=== PATIENT | male | born 1985 | race Caucasian/White ===

== ENCOUNTER 2024-12-16 20:36 | Emergency (ER) | payer MEDICAID, SELFPAY ==
--- OUTSIDE RECORDS SUMMARY | 2024-10-17 07:30 | XMS_ITS ---
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 Name Role Phone Jones LYLYAndrés Unavailable Elissa Parrish Unavailable Unavaila Carlos Toussaint Unavailable [phone] Allergies Allergen (clinical drug ingredient) Drug/Non Drug Allergy documented on EMR Reaction Allergy Type Onset Date Status Flexeril hives Drug Allergy Active Results Component Value Reference Range Notes Urine Test ANALYZER Reviewed date:10/17/2024 12:54:54 PM Interpretation:+OPI +OXY +HYD Performing Lab: Notes/Report: +OPI +OXY +HYD Heroin Metabolite (6AM) NEG Amphetamine (AMP) NEG Benzodiazepine (BERNIE) NEG Buprenorphine NEG Cocaine (RAJ) NEG Hydrocodone (HYD) POS Methadone (MTD) NEG Opiate (OPI) POS Oxycodone (OXY) POS REASON FOR VISIT Low back pain Medications Medication SIG (Take, Route, Frequency, Duration) Notes Start Date End Date Status Acetaminophen-Hydrocodo ne Bitartrate 325 mg-10 mg 1 tab(s) orally 4 times a day; Duration: 28 days 08/20/2024 Active gabapentin 400 mg 1 tab(s) orally at bedtime; Duration: 30 day(s) 07/30/2024 Active loratadine 10 mg 1 tab(s) orally once a day 09/11/2022 Active Metoprolol Tartrate 25 mg ; Duration: 90 Active atorvastatin 40 mg 1 tab(s) orally once a day; Duration: 30 day(s) 06/06/2022 Active Eliquis 5 mg as directed orally 2 times a day; Duration: 30 day(s) Active pregabalin 100 mg 1 cap(s) orally 3 times a day; Duration: 28 days DO NOT FILL SOONER THAN 28 DAYS, (OK TO FILL EARLY, ONLY IF CLOSED) 10/17/2024 Active OxyCODONE Hydrochloride 10 mg 1 tab(s) orally every 6 hours; Duration: 28 days SEPTEMBER 2024 RX DO NOT FILL SOONER THAN 28 DAYS, (OK TO FILL EARLY, ONLY IF CLOSED) 10/17/2024 Active fenofibrate 145 mg TAKE 1 TABLET BY MOUTH EVERY DAY; Duration: 90 Active verapamil 120 mg/24 hours 1 cap(s) orally once a day; Duration: 30 day(s) 06/06/2022 Active baclofen 10 mg 1 tab(s) orally 3 times a day; Duration: 30 day(s) Active OxyCODONE Hydrochloride 5 mg 1 tab(s) orally every 6 hours; Duration: 28 days October 2024 RX DO NOT FILL SOONER THAN 28 DAYS, (OK TO FILL EARLY, ONLY IF CLOSED) 10/17/2024 Active Encounters Encounter Location Date Provider Diagnosis [facility] [address] [place] [address] 10/17/2024 Carlos Ogden Other snf (current) drug therapy Z79.899 ; Other spondylosis, lumbar region M47.896 ; Radiculopathy, lumbar region M54.16 and Cervicalgia M54.2 Assessments Encounter Date Diagnosis (ICD Code) Assessment Notes Treatment Notes Treatment Clinical Notes Section Notes 10/17/2024 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 Refill Baclofen 10mg TID prn 2. Refill Oxycodone 10mg QID 3. Refill Lyrica 100mg TID October 17, 2024: The patient presents to the [facility] office in [facility] for an audiovisual-telem edicine visit. The patient was evaluated by the general medical practitioner and a urine drug screen was obtained as well as vital signs. Portions of the physical examination were assisted by the general medical practitioner during the audiovisual-telem edicine visit Review of history and previous note: Benigno presents today for follow up and medication refil. Reports shooting pain that starts from the right lower back that radiates to the left lower back and down to mid-buttocks area. Patient describes sciatica type pain for the last three weeks. Patient unable to stand for long periods of time without provoking pain. Patient reports for relief he would lay on the opposite side to relieve pressure. Patient had lumbar MRI done. 11/07/2023 - Central L5-S1 disc herniation indenting the anterior thecal sac. Left paracentral L3-4 disc herniation indenting the anterior thecal sac. Left-sided T11-12 disc herniation indenting the anterior thecal sac. Degenerative disc disease involving the lumbar spine with no other sites of lumbar disc herniation or conus or cauda equina compression. Mild bilateral L4-5 foraminal stenosis. Patient diagnosed with cancer. He reports still undergoing multiple scans of his neck and collar bone. He reports that his pain has been somewhat out of control the last couple of months. He reports having difficulty sleeping at night secondary to the shoulder and neck pain. He reports his pain level a 7. Patient does have a gastrostomy tube secondary to dysphagia. . He was previously prescribed Oxycodone during admission. Right side of patient neck is enlarged and red. He reports the gabapentin increase has helping the burning sensations in his neck. He has completed chemo treatment and has 6 more radiation treatments. October 17, 2024: Mr. Keita is a 39-year-old gentleman with a previous diagnosis of head and neck cancer. He also complains of neck and lower back pain. His pain is much better today. He says it is 5/10. He has received chemotherapy and radiation therapy but no surgery. The last adjunct of therapy was around July 2024. He is still followed by oncology. He has no radiating pain in the arms or legs. The pregabalin works better than the gabapentin with less drowsiness. I reviewed the Bart and the urine drug screen. The patient is now only getting the oxycodone 10 mg 4 times a day. I advised the patient not to receive any opioid therapy from the oncologist unless we are aware. He has received significant opioid therapy during his treatment. For his cancer during the month of July. No new changes otherwise. Because of his diagnosis of cancer we will hold off on interventional therapy for now. Will refill his medications and see him back in 2 months. 10/17/2024 Other spondylosis, lumbar region (ICD-10 - M47.896) October 17, 2024: The patient presents to the [facility] office in [facility] for an audiovisual-telem edicine visit. The patient was evaluated by the general medical practitioner and a urine drug screen was obtained as well as vital signs. Portions of the physical examination were assisted by the general medical practitioner during the audiovisual-telem edicine visit Review of history and previous note: Benigno presents today for follow up and medication refil. Reports shooting pain that starts from the right lower back that radiates to the left lower back and down to mid-buttocks area. Patient describes sciatica type pain for the last three weeks. Patient unable to stand for long periods of time without provoking pain. Patient reports for relief he would lay on the opposite side to relieve pressure. Patient had lumbar MRI done. 11/07/2023 - Central L5-S1 disc herniation indenting the anterior thecal sac. Left paracentral L3-4 disc herniation indenting the anterior thecal sac. Left-sided T11-12 disc herniation indenting the anterior thecal sac. Degenerative disc disease involving the lumbar spine with no other sites of lumbar disc herniation or conus or cauda equina compression. Mild bilateral L4-5 foraminal stenosis. Patient diagnosed with cancer. He reports still undergoing multiple scans of his neck and collar bone. He reports that his pain has been somewhat out of control the last couple of months. He reports having difficulty sleeping at night secondary to the shoulder and neck pain. He reports his pain level a 7. Patient does have a gastrostomy tube secondary to dysphagia. . He was previously prescribed Oxycodone during admission. Right side of patient neck is enlarged and red. He reports the gabapentin increase has helping the burning sensations in his neck. He has completed chemo treatment and has 6 more radiation treatments. October 17, 2024: Mr. Keita is a 39-year-old gentleman with a previous diagnosis of head and neck cancer. He also complains of neck and lower back pain. His pain is much better today. He says it is 5/10. He has received chemotherapy and radiation therapy but no surgery. The last adjunct of therapy was around July 2024. He is still followed by oncology. He has no radiating pain in the arms or legs. The pregabalin works better than the gabapentin with less drowsiness. I reviewed the Bart and the urine drug screen. The patient is now only getting the oxycodone 10 mg 4 times a day. I advised the patient not to receive any opioid therapy from the oncologist unless we are aware. He has received significant opioid therapy during his treatment. For his cancer during the month of July. No new changes otherwise. Because of his diagnosis of cancer we will hold off on interventional therapy for now. Will refill his medications and see him back in 2 months. 10/17/2024 Radiculopathy, lumbar region (ICD-10 - M54.16) October 17, 2024: The patient presents to the [facility] office in [facility] for an audiovisual-telem edicine visit. The patient was evaluated by the general medical practitioner and a urine drug screen was obtained as well as vital signs. Portions of the physical examination were assisted by the general medical practitioner during the audiovisual-telem edicine visit Review of history and previous note: Benigno presents today for follow up and medication refil. Reports shooting pain that starts from the right lower back that radiates to the left lower back and down to mid-buttocks area. Patient describes sciatica type pain for the last three weeks. Patient unable to stand for long periods of time without provoking pain. Patient reports for relief he would lay on the opposite side to relieve pressure. Patient had lumbar MRI done. 11/07/2023 - Central L5-S1 disc herniation indenting the anterior thecal sac. Left paracentral L3-4 disc herniation indenting the anterior thecal sac. Left-sided T11-12 disc herniation indenting the anterior thecal sac. Degenerative disc disease involving the lumbar spine with no other sites of lumbar disc herniation or conus or cauda equina compression. Mild bilateral L4-5 foraminal stenosis. Patient diagnosed with cancer. He reports still undergoing multiple scans of his neck and collar bone. He reports that his pain has been somewhat out of control the last couple of months. He reports having difficulty sleeping at night secondary to the shoulder and neck pain. He reports his pain level a 7. Patient does have a gastrostomy tube secondary to dysphagia. . He was previously prescribed Oxycodone during admission. Right side of patient neck is enlarged and red. He reports the gabapentin increase has helping the burning sensations in his neck. He has completed chemo treatment and has 6 more radiation treatments. October 17, 2024: Mr. Keita is a 39-year-old gentleman with a previous diagnosis of head and neck cancer. He also complains of neck and lower back pain. His pain is much better today. He says it is 5/10. He has received chemotherapy and radiation therapy but no surgery. The last adjunct of therapy was around July 2024. He is still followed by oncology. He has no radiating pain in the arms or legs. The pregabalin works better than the gabapentin with less drowsiness. I reviewed the Bart and the urine drug screen. The patient is now only getting the oxycodone 10 mg 4 times a day. I advised the patient not to receive any opioid therapy from the oncologist unless we are aware. He has received significant opioid therapy during his treatment. For his cancer during the month of July. No new changes otherwise. Because of his diagnosis of cancer we will hold off on interventional therapy for now. Will refill his medications and see him back in 2 months. 10/17/2024 Cervicalgia (ICD-10 - M54.2) October 17, 2024: The patient presents to the [facility] in [facility] for an audiovisual-telem edicine visit. The patient was evaluated by the general medical practitioner and a urine drug screen was obtained as well as vital signs. Portions of the physical examination were assisted by the general medical practitioner during the audiovisual-telem edicine visit Review of history and previous note: Benigno presents today for follow up and medication refil. Reports shooting pain that starts from the right lower back that radiates to the left lower back and down to mid-buttocks area. Patient describes sciatica type pain for the last three weeks. Patient unable to stand for long periods of time without provoking pain. Patient reports for relief he would lay on the opposite side to relieve pressure. Patient had lumbar MRI done. 11/07/2023 - Central L5-S1 disc herniation indenting the anterior thecal sac. Left paracentral L3-4 disc herniation indenting the anterior thecal sac. Left-sided T11-12 disc herniation indenting the anterior thecal sac. Degenerative disc disease involving the lumbar spine with no other sites of lumbar disc herniation or conus or cauda equina compression. Mild bilateral L4-5 foraminal stenosis. Patient diagnosed with cancer. He reports still undergoing multiple scans of his neck and collar bone. He reports that his pain has been somewhat out of control the last couple of months. He reports having difficulty sleeping at night secondary to the shoulder and neck pain. He reports his pain level a 7. Patient does have a gastrostomy tube secondary to dysphagia. . He was previously prescribed Oxycodone during admission. Right side of patient neck is enlarged and red. He reports the gabapentin increase has helping the burning sensations in his neck. He has completed chemo treatment and has 6 more radiation treatments. October 17, 2024: Mr. Keita is a 39-year-old gentleman with a previous diagnosis of head and neck cancer. He also complains of neck and lower back pain. His pain is much better today. He says it is 5/10. He has received chemotherapy and radiation therapy but no surgery. The last adjunct of therapy was around July 2024. He is still followed by oncology. He has no radiating pain in the arms or legs. The pregabalin works better than the gabapentin with less drowsiness. I reviewed the Bart and the urine drug screen. The patient is now only getting the oxycodone 10 mg 4 times a day. I advised the patient not to receive any opioid therapy from the oncologist unless we are aware. He has received significant opioid therapy during his treatment. For his cancer during the month of July. No new changes otherwise. Because of his diagnosis of cancer we will hold off on interventional therapy for now. Will refill his medications and see him back in 2 months. Plan Of Treatment Medication Medication Name Sig Start Date Stop Date Notes pregabalin 100 mg 1 cap(s) orally 3 times a day; Duration: 28 days 10/17/2024 DO NOT FILL SOONER THAN 28 DAYS, (OK TO FILL EARLY, ONLY IF CLOSED) OxyCODONE Hydrochloride 10 mg 1 tab(s) orally every 6 hours; Duration: 28 days 10/17/2024 RX DO NOT FILL SOONER THAN 28 DAYS, (OK TO FILL EARLY, ONLY IF CLOSED) baclofen 10 mg 1 tab(s) orally 3 times a day; Duration: 30 day(s) OxyCODONE Hydrochloride 5 mg 1 tab(s) orally every 6 hours; Duration: 28 days 10/17/2024 RX DO NOT FILL SOONER THAN 28 DAYS, (OK TO FILL EARLY, ONLY IF CLOSED) Treatment Notes Assessment Notes Other snf (current) drug therapy October 17, 2024 1. Refill Baclofen 10mg TID prn 2. Refill Oxycodone 10mg QID 3. Refill Lyrica 100mg TID Next Appt Details Follow Up: 2 Months, Reason: Provider Name:Andrés Cuellar farooq, 02/06/2025 01:15:00 PM, [address], [address], [place], [address], Progress Notes * Benigno KEITADOB:[birth year] (39 yo M)Acc No.[id number]:10/17/2024 Patient: Benigno ROTHMAN Provider: Natali Ogden MD :1985 A ge:39 Y S ex:Male Date:10/17/2024 Address:[address] [place], [place] [id number] Subjective: * Chief Complaints: * L ow back pain * HPI: T ODAYS PAIN EVALUATION: MEDICATION FOLLOW UP: T he patient is currently prescribed [place] 10/325 QID, which provides 75% relief of pain symptoms for 6 hours. The last dose was taken 10/17/2024 Denies side effects. C URRENT PAIN SYMPTOMS: L ocation of Worst Pain: L ow Back, P ain Frequency: c onstant, always, P ain Description: a johnnie, burning, cramping, sharp, stabbing, A verage Pain Score VAS: 7 , P ain Exacerbation: bending, lifting, stooping, P ain Alleviation: Laying in specific positions, A DL/Quality of Life Interference: Everyday Life. P AIN MANAGEMENT TREATMENT HISTORY: IMAGING HISTORY: 06/27/2022 EMG BLE-This is a borderline normal electrodiagnostic evaluation. The absence of the superficial peroneal sensory studies were thought to be technically difficult and may not represent pathology. The absence of the H reflex appears to be uncertain in terms of significance but may represent S1 pathology. EMG showed no evidence of S1 radiculopathy however. I would recommend lumbosacral imaging with MRI scan without contrast if possible. This will further delineate any possible lumbosacral pathology. Otherwise I will recommend clinical correlation 08/04/2022 MRI Lumbar- Degenerative disc disease as above 01/30/2023 XR Cervical-No acute process 11/07/2023 - Central L5-S1disc herniation indenting the anterior thecal sac. Left paracentral L3-4 disc herniation indenting the anterior thecal sac. Left-sided T11-12 disc herination indenting the anterior thecal sac. Degenerative disc disease involving the lumbar spine with no other sites of lumbar disc herniation or conus or cauda equina compression. Mild bilateral L4-5 foraminal stenosis . P REVIOUS INJECTION\PROCEDURE HISTORY: 10/30/2022 #1 LMBB AZUL L3,L4,L5 with 80 % for 1 day 11/13/2022 #2 LMBB AZUL L3,L4,L5 with 80 % for 1 day 12/25/2022 RFA AZUL L3, L4, L5 40-50% relief for 2 weeks . P HYSICAL/AQUA THERAPY/DME/OTHER HISTORY: Patient has an inversion table. 2022 - 04/09/2024 Patient continues a prescribed home exercise program 3-5 times per week, (sits ups, push ups, litfs low weight weights) as of 09/22/2024 . P ERTINENT SURGICAL EVALUATIONS/SPECIALIST CONSULTS No prior surgical consult . P REVIOUS PAIN CLINIC CARE: Former patient of Alok Sims . Ac TRUONG OF INITIAL EVALUATION: 06/06/2022 New patient consult referred by Dr Carter for chronic lower back pain onset about 21 years ago without incident . The patient says that he has a history of cardiac disease and suffered an MN last year. The patient is status post a cardiac stent as well as anxiety and depression by history. He has no history of previous back surgery and no history of diabetes mellitus or peripheral polyneuropathy. He has no history of back injury previously or recently. He says that the pain started gradually. The pain is mostly in the lower back and radiates up towards the middle back. Patient says that his pain level today is 7/10 and he rates it as moderate. The pain is worse with bending and increased activity and repetitive motions of his back. He says the lower back pain extends into the left lower extremity mostly down to the left knee. The right lower extremity is unremarkable. He denies weakness in the lower extremities and has no bowel or bladder incontinence. He has no history of foot drop or distal lower extremity weakness. The patient does say that he underwent epidural injections previously that helped to some degree and the last one was several years ago. He underwent RFA in the lower back about 5 years ago with some degree of improvement. He has been doing a home exercise program including an inversion table. There are no copies of the imaging studies available for review.. C OMPLIANCE: RISK ASSESSMENT AND STRATIFICATION: RISK GROUP: . U RINE DRUG TESTIN08/20/2023 Screen Expected 10/15/2023 Screen Expected 12/10/2023 Screen Expected Definitive Expected 02/08/2024 Screen Expected 04/09/2024 Screen Expected 06/02/2024 Screen Expected Definitive Expected 07/30/2024 Screen Unexpected (oxy) ; Definitive Unexpected(+fent) 10/16/2024, . M ONITORING: M orphine Equivalent (MME): 0 BART reviewed today and appropriate . T ESTING/RISK ASSESSMENTS ORT Score/Result: 0. * ROS: G ENERAL: Fever D enies. H EENT: Sore throat D enies. C ARDIOVASCULAR: Positive for d enies cardiovascular symptoms. ? R ESPIRATORY: Positive for d enies respiratory issues. G ASTROINTESTINAL: Positive for d enies abdominal issues. G ENITOURINARY: Positive for d enies genitourinary issues. M USCULOSKELETAL: Positive for l ow back pain. N EUROLOGICAL: Positive for n umbness tingling. P SYCHIATRIC: Positive for a nxiety depression. E NDOCRINE: Positive for d enies endocrine issues. * Medical History: * Surgical History: c holecystetomy pt denies 2003hernia repair [facility] ([facility]) 11/20/2019cardiac stent [facility] (OP) ppendectomy (unknown) 2002[employer]/[place]/ UNKNOWN/ 1 night stay 2024 * Hospitalization/Major Diagno stic Procedure: D enies Past Hospitalization * Family History: N on-Contributory. Denies family hx of substance abuse. * Social History: S moking: Yes P PD: , age started smoking: ,determination:. P ersonal History Drug Use: No. Alcohol: No. 6. * Medications: T akingEliquis 5 mg tablet as directed orally 2 times a day verapamil 120 mg/24 hours capsule, extended release 1 cap(s) orally once a day fenofibrate 145 mg tablet TAKE 1 TABLET BY MOUTH EVERY DAY atorvastatin 40 mg tablet 1 tab(s) orally once a day Metoprolol Tartrate 25 mg tablet loratadine 10 mg tablet 1 tab(s) orally once a day gabapentin 400 mg capsule 1 tab(s) orally at bedtime Acetaminophen-Hydrocodone Bitartrate 325 mg-10 mg tablet 1 tab(s) orally 4 times a day baclofen 10 mg tablet 1 tab(s) orally 3 times a day OxyCODONE Hydrochloride 10 mg tablet 1 tab(s) orally every 6 hours , Notes to Pharmacist: DO NOT FILL SOONER THAN 28 DAYS, (OK TO FILL EARLY, ONLY IF CLOSED)pregabalin 100 mg capsule 1 cap(s) orally 3 times a day , Notes to Pharmacist: DO NOT FILL SOONER THAN 28 DAYS, (OK TO FILL EARLY, ONLY IF CLOSED)Medication List reviewed and reconciled with the patientTaking Eliquis 5 mg tablet as directed orally 2 times a day Taking verapamil 120 mg/24 hours capsule, extended release 1 cap(s) orally once a day Taking fenofibrate 145 mg tablet TAKE 1 TABLET BY MOUTH EVERY DAY Taking atorvastatin 40 mg tablet 1 tab(s) orally once a day Taking Metoprolol Tartrate 25 mg tablet Taking loratadine 10 mg tablet 1 tab(s) orally once a day Taking gabapentin 400 mg capsule 1 tab(s) orally at bedtime Taking Acetaminophen-Hydrocodone Bitartrate 325 mg-10 mg tablet 1 tab(s) orally 4 times a day Taking baclofen 10 mg tablet 1 tab(s) orally 3 times a day Taking OxyCODONE Hydrochloride 10 mg tablet 1 tab(s) orally every 6 hours , Notes to Pharmacist: DO NOT FILL SOONER THAN 28 DAYS, (OK TO FILL EARLY, ONLY IF CLOSED)Taking pregabalin 100 mg capsule 1 cap(s) orally 3 times a day , Notes to Pharmacist: DO NOT FILL SOONER THAN 28 DAYS, (OK TO FILL EARLY, ONLY IF CLOSED)Medication List reviewed and reconciled with the patient * Allergies: F lexeril: hives - Side Effectsno[Allergies Verified] Objective: * Vitals: * Examination: G eneral Examination: Nurse/Bottom Presser: Liz cheng (SHARAD-Valeria Barrett 09/22/2024 11:05:02 AM > . General Appearance: w ell-nourished individual in no acute distress. The patient is alert and oriented and cooperative for evaluation. HEENT: unremarkable. Neck, Thyroid : supple. Heart: regular rate. Neurologic Exam: P atient ambulates with an antalgic gait, pitched forward. Skin normal, no rash. Extremities: no clubbing, no edema. ? L umbar Spine/Lower Back: Palpation: T enderness to lower lumbar Paraspinal .? Inspection: Spinal alignment no abnormal curvature noted.? Straight leg raising test: negative bilaterally. Sensory exam: s ensation intact to light touch throughout bilateral lower extremities, no edema or discoloration noted. Motor system: m otor strength 5/5 in all muscle groups bilaterally. Range of motion: p ain with extention pain with all pains of motion . Assessment: * Assessment: 1. 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 O ther spondylosis, lumbar region - M47.896 3 . R adiculopathy, lumbar region - M54.16? 4. C ervicalgia - M54.2 October 17, 2024: The patient presents to the [facility] office in [facility] for an audiovisual-telemedicine visit. The patient was evaluated by the general medical practitioner and a urine drug screen was obtained as well as vital signs. Portions of the physical examination were assisted by the general medical practitioner during the audiovisual-telemedicine visit Review of history and previous note: Benigno presents today for follow up and medication refil. Reports shooting pain that starts from the right lower back that radiates to the left lower back and down to mid-buttocks area. Patient describes sciatica type pain for the last three weeks. Patient unable to stand for long periods of time without provoking pain. Patient reports for relief he would lay on the opposite side to relieve pressure. Patient had lumbar MRI done. 11/07/2023 - Central L5-S1 disc herniation indenting the anterior thecal sac. Left paracentral L3-4 disc herniation indenting the anterior thecal sac. Left-sided T11-12 disc herniation indenting the anterior thecal sac. Degenerative disc disease involving the lumbar spine with no other sites of lumbar disc herniation or conus or cauda equina compression. Mild bilateral L4-5 foraminal stenosis. Patient diagnosed with cancer. He reports still undergoing multiple scans of his neck and collar bone. He reports that his pain has been somewhat out of control the last couple of months. He reports having difficulty sleeping at night secondary to the shoulder and neck pain. He reports his pain level a 7. Patient does have a gastrostomy tube secondary to dysphagia. . He was previously prescribed Oxycodone during admission. Right side of patient neck is enlarged and red. He reports the gabapentin increase has helping the burning sensations in his neck. He has completed chemo treatment and has 6 more radiation treatments. October 17, 2024: Mr. Keita is a 39-year-old gentleman with a previous diagnosis of head and neck cancer. He also complains of neck and lower back pain. His pain is much better today. He says it is 5/10. He has received chemotherapy and radiation therapy but no surgery. The last adjunct of therapy was around July 2024. He is still followed by oncology. He has no radiating pain in the arms or legs. The pregabalin works better than the gabapentin with less drowsiness. I reviewed the Bart and the urine drug screen. The patient is now only getting the oxycodone 10 mg 4 times a day. I advised the patient not to receive any opioid therapy from the oncologist unless we are aware. He has received significant opioid therapy during his treatment. For his cancer during the month of July. No new changes otherwise. Because of his diagnosis of cancer we will hold off on interventional therapy for now. Will refill his medications and see him back in 2 months. Plan: * Treatment: Value Reference Range H eroin Metabolite (6AM) NEG * A mphetamine (AMP) NEG * B enzodiazepine (BERNIE) NEG * B uprenorphine NEG * C ocaine (RAJ) NEG * H ydrocodone (HYD) POS POS * M ethadone (MTD) NEG * O piate (OPI) POS POS * O xycodone (OXY) POS POS * Arelis Rogel 10/17/2024 12:09: 20 PM EDT >Carlos Ogden 10/17/2024 12:30:13 PM EDT > (Confirm All) Send specimen for definitive testing on Amphetamines, Anticonvulsants, Antitussive, Barbiturates,Bath Salts, Benzodiazepines, Buprenorphine, Fentanyl,RAO Analogue, Heroin, Illicits, Methadone, Methylphenidate, Muscle Relaxants, Nicotine, Opiates, Opioid Antagonist, Other Anxiolytic,Recreational Compounds, Sleep Aids, SSRI/SNRI,Synthetic Cannabinoids,Tricyclics drug classes Notes: October 17, 2024 1. Refill Baclofen 10mg TID prn 2. Refill Oxycodone 10mg QID 3. Refill Lyrica 100mg TID ?? * Procedure Codes: * Follow Up: 2 Months * * Sign off status: Completed true * Provider: Natali Ogden MD Date: 10/17/2024 Generated for Shanel grayson/Finn/Eliseo on: 12/16/2024 08:45 PM CDT History and Physical Notes * HPI (History of Present Illness) Category Sub-Category Detail Notes Category Not es PAIN MANAGEMENT TREATMENT HISTORY SUMMARY OF INITIAL EVALUATION: 06/06/2022 New patient consult referred by Dr Carter for chronic lower back pain onset about 21 years ago without incident . The patient says that he has a history of cardiac disease and suffered an MN last year. The patient is status post a cardiac stent as well as anxiety and depression by history. He has no history of previous back surgery and no history of diabetes mellitus or peripheral polyneuropathy. He has no history of back injury previously or recently. He says that the pain started gradually. The pain is mostly in the lower back and radiates up towards the middle back. Patient says that his pain level today is 7/10 and he rates it as moderate. The pain is worse with bending and increased activity and repetitive motions of his back. He says the lower back pain extends into the left lower extremity mostly down to the left knee. The right lower extremity is unremarkable. He denies weakness in the lower extremities and has no bowel or bladder incontinence. He has no history of foot drop or distal lower extremity weakness. The patient does say that he underwent epidural injections previously that helped to some degree and the last one was several years ago. He underwent RFA in the lower back about 5 years ago with some degree of improvement. He has been doing a home exercise program including an inversion table. There are no copies of the imaging studies available for review. IMAGING HISTORY: 06/27/2022 EMG BLE- This is a borderline normal electrodiagnostic evaluation. The absence of the superficial peroneal sensory studies were thought to be technically difficult and may not represent pathology. The absence of the H reflex appears to be uncertain in terms of significance but may represent S1 pathology. EMG showed no evidence of S1 radiculopathy however. I would recommend lumbosacral imaging with MRI scan without contrast if possible. This will further delineate any possible lumbosacral pathology. Otherwise I will recommend clinical correlation 08/04/2022 MRI Lumbar - Degenerative disc disease as above 01/30/2023 XR Cervical -No acute process 11/07/2023 - Central L5-S1 disc herniation indenting the anterior thecal sac. Left paracentral L3-4 disc herniation indenting the anterior thecal sac. Left-sided T11-12 disc herination indenting the anterior thecal sac. Degenerative disc disease involving the lumbar spine with no other sites of lumbar disc herniation or conus or cauda equina compression. Mild bilateral L4-5 foraminal stenosis PHYSICAL/AQUA THERAPY/DME/OT HER HISTORY: Patient has an inversion table. 2022 - 04/09/2024 Patient continues a prescribed home exercise program 3-5 times per week, (sits ups, push ups, litfs low weight weights) as of 09/22/2024 PERTINENT SURGICAL EVALUATIONS/SPECIALIST CONSULTS No prior surgical consult PREVIOUS INJECTION\PROCEDURE HISTORY: 10/30/2022 #1 LMBB AZUL L3,L4,L5 with 80 % for 1 day 11/13/2022 #2 LMBB AZUL L3,L4,L5 with 80 % for 1 day 12/25/2022 RFA AZUL L3, L4, L5 40-50% relief for 2 weeks PREVIOUS PAIN CLINIC CARE: Former patient of Alok Sims COMPLIANCE RISK ASSESSMENT AND STRATIFICATION: RISK GROUP: URINE DRUG TESTIN08/20/2023 Screen Ex pected 10/15/2023 Screen Expected 12/10/2023 Screen Expected Definitive Expected 02/08/2024 Screen Expected 04/09/2024 Screen Expected 06/02/2024 Screen Expected Definitive Expected 07/30/2024 Screen Unexpected (oxy) ; Definitive Unexpected(+fent) 10/16/2024, MONITORING: Morphine Equivalent (MME): 0 BART reviewed today and appropriate TESTING/RISK ASSESSMENTS ORT Score/Resul t: 0 TODAYS PAIN EVALUATION MEDICATION FOLLOW UP: The patient is currently prescribed [place] 10/325 QID, which provides 75% relief of pain symptoms for 6 hours. The last dose was taken 10/17/2024 Denies side effects CURRENT PAIN SYMPTOMS: Location of Worst Pain:: Low Back Pain Frequency:: constant, always Pain Description:: aching, b urning, cramping, sharp, stabbing Average Pain Score VAS:: 7 Pain Exacerbation:: bending, lifting, st ooping Pain Alleviation:: Laying in specific p ositions ADL/Quality of Life Interference:: Every day Life Examination Category Sub-Category Detail Notes Category Not es General Examination HEENT: unremarkable Neck, Thyroid : supple Heart: regular rate Extremities: no clubbing, no tunde a General Appearance: well-nourished indiv idual in no acute distress. The patient is alert and oriented and cooperative for evaluation Skin normal, no rash Neurologic Exam: Patient ambulates wi th an antalgic gait, pitched forward Nurse/Bottom Presser: Kirk (SHARAD-Douglas)[place] 09/22/2024 11:05:02 AM > Lumbar Spine/Lower Back Straight leg raising test: neg ative bilaterally Motor system: motor strength 5/5 i n all muscle groups bilaterally Sensory exam: sensation intact to light touch throughout bilateral lower extremities, no edema or discoloration noted Range of motion: pain with extention pain with all pains of motion Inspection: Spinal alignment no abnormal curvature noted Palpation: Tenderness to lower lumbar Paraspinal
--- OUTSIDE RECORDS SUMMARY | 2024-10-24 09:45 | XMS_ITS | Encounter Summary ---
Author Organization Healthcare Address [address] [id number] Care Team Providers Care Roving Department End Finder Name Role Phone Delmi Robledo MD Primary Care Provider [phone] Promise Lopez RN Unavailable Vasu Felipe MD Unavailable Reason for Referral * Imaging (Routine) - Closed Specialty Diagnoses / Procedures Referred By Klaudia larios Referred To Contact Radiology Diagnoses Right tonsillar squamous cell carcinoma Procedures PET/CT FDG Skull Base To Mid Thigh Maty Lr APRN [address] [address] Phone: tel: fax: Referral ID Status Reason Start Date Expiration Date Visits Re quested Visits Authorized [id number] Closed 09/08/2024 03/10/2026 2 2 Reason for Visit * Imaging (Routine) - Closed Specialty Diagnoses / Procedures Referred By Klaudia larios Referred To Contact Radiology Diagnoses Right tonsillar squamous cell carcinoma Procedures PET/CT FDG Skull Base To Mid Thigh Maty Lr APRN [address] [address] Phone: tel: fax: Referral ID Status Reason Start Date Expiration Date Visits Re quested Visits Authorized [id number] Closed 09/08/2024 03/10/2026 2 2 Encounter Details Date Type Department Care Team (Latest Contact Info) Description 10/24/2024 9:45 AM EDT - 10/24/2024 11:59 PM EDT Hospital Encounter [facility] PET Scan [address] [place] [address] Right tonsillar squamous cell carcinoma Discharge Disposition: Home or Self Care Social History Tobacco Use Types Packs/Day Years Used Date Smoking Tobacco: Every Day Cigarettes 1 30.7 Started: 1994 Smokeless Tobacco: Never Alcohol Use Standard Drinks/Week Comments Never 0 (1 standard drink = 0.6 oz pur e alcohol) Humiliation, Afraid, Rape, and Kick questionnair e Answer Date Recorded Within the last year, have y ou been afraid of your partner or ex-partner? No 08/19/2024 Within the last year, have y ou been humiliated or emotionally abused in other ways by your partner or ex-partner? No Within the last year, have y ou been kicked, hit, slapped, or otherwise physically hurt by your partner or ex-partner? No 08/19/2024 Within the last year, have y ou been raped or forced to have any kind of sexual activity by your partner or ex-partner? No 08/19/2024 Overall Financial Resource Strain (CARDIA) Answe r Date Recorded How hard is it for you to pa y for the very basics like food, housing, medical care, and heating? Somewhat hard 08/19/2024 PHQ-2 Answer Date Recorded Patient Health Questionnaire-2 Score 0 09/08/2024 Hunger Vital Sign Answer Date Recorded Within the past 12 months, y ou worried that your food would run out before you got the money to buy more. Never true 08/20/19 Within the past 12 months, t he food you bought just didn't last and you didn't have money to get more. Never true 08/19/2024 PRAPARE - Transportation Answer Date Re corded In the past 12 months, has l ack of transportation kept you from medical appointments or from getting medications? No 08/01 In the past 12 months, has l ack of transportation kept you from meetings, work, or from getting things needed for daily living? No 08/19/2024 PHQ-9 Answer Date Recorded Patient Health Questionnaire-9 Score 0 09/08/2024 Housing Stability Vital Sign Answer Mario e Recorded In the last 12 months, was t here a time when you were not able to pay the mortgage or rent on time? No 08/19/2024 In the past 12 months, how m any times have you moved where you were living? 0 08/19/2024 At any time in the past 12 m [facility], were you homeless or living in a [place] facility (including now)? No 08/19/2024 CAGE ASSESSMENT Answer Date Recorded Cage unable to access Not on file 05/29/2024 Cage max number of drinks Not on file 2024 Cage Beverages a week Not on file 05/29/2024 Have you ever felt you should CUT down on your d rinking? 0 05/29/2024 Have you been ANNOYED by people criticizing your drinking? 0 05/29/2024 Have you felt GUILTY about your drinking? 0 05/29/2024 Have you had a drink first t mario alberto in the morning ([employer] MERCHANDISING SPECIALIST) to steady your nerves or to get rid of a hangover? 0 05/29/2024 CAGE Questionnaire Score 0 025 Utilities Answer Date Recorded In the past 12 months has th e [employer], gas, oil, or water company threatened to shut off services in your home? No 08/19/2024 Sex and Gender Information Value Date Recorded Sex Assigned at Male 05/02/2024 7:53 AM EST Legal Sex Male 8:27 PM EDT Gender Identity Not on file Sexual Orientation Choose not to disclose 2024 4:38 PM EST documented as of this encounter Medications at Time of Discharge Amino Acids-Protein Hydrolys (Pro-Stat 101) liquid 30 mL by Per PEG Tube route in the morning and 30 mL before bedtime. 1800 mL 5 06/23/2024 12/21/19 25 Boost VHC (Boost) VHC liquid Take 237 mL by mouth 2 times a day. 67223 mL 5 09/08/2024 03/07/20 25 Eliquis 5 MG tablet Take 1 tablet (5 mg) by mouth in the morning and 1 tablet (5 mg) in the evening. 03/10/2024 03/10/20 25 famotidine (Pepcid) 20 MG tablet Take 1 tablet (20 mg) by mouth in the morning. furosemide (Lasix) 20 MG tablet Take 1 tablet by mouth daily in the mornings for 5-7 days. 10 tablet 07/21/2024 Guar Gum (Nutrisource Fiber) powder 4 g by Per PEG Tube route daily. 120 g 5 07/24/2024 01/21/20 25 lidocaine (Xylocaine) 2 % solution Take 5 mL by mouth 4 (four) times a day as needed for mild pain. 200 mL 1 06/30/2024 metoprolol tartrate (Lopressor) 25 MG tablet Take 1 tablet (25 mg) by mouth in the morning and 1 tablet (25 mg) in the evening. 12/17/2023 mupirocin (Bactroban) 2 % ointment Apply 1 Application topically in the morning and 1 Application before bedtime. 07/03/2024 ondansetron ODT (Zofran-ODT) 8 MG disintegrating tablet Dissolve 1 tablet on the tongue every 8 hours as needed for nausea or vomiting. 30 tablet 3 09/08/2024 oxyCODONE (Roxicodone) 10 MG immediate release tablet Take 1-2 tablets by mouth every 4 hours as needed for severe pain (g89.3). 180 tablet 07/28/2024 pantoprazole (Protonix) 40 MG EC tablet Take 1 tablet (40 mg) by mouth daily before breakfast. Do not crush, chew, or split. pregabalin (Lyrica) 100 MG capsule every 8 hours. 09/22/2024 prochlorperazine (Compazine) 10 MG tabletIndications:R ight tonsillar squamous cell carcinoma Take 1 tablet (10 mg) by mouth every 6 hours as needed for nausea or vomiting. 30 tablet 3 06/09/2024 sulfamethoxazole-tr imethoprim (Bactrim DS) 800-160 MG tablet Take 1 tablet by mouth in the morning and 1 tablet before bedtime. 07/03/2024 varenicline (Chantix Continuing Month Huber) 1 MG tablet Take 1 tablet by mouth in the morning and 1 tablet before bedtime. Take with full glass of water. 60 tablet 3 06/30/2024 verapamil SR (Calan-SR) 120 MG ER tablet Take 1 tablet (120 mg) by mouth 1 (one) time each day. 11/27/2023 documented as of this encounter Plan of Treatment Upcoming Encounters Date Type Department Care Team (Late st Contact Info) Description 12/29/2024 8:30 AM EDT Office Visit [facility] [address] [facility], [address]nd [place] [phone] Gregory Mariza Prashanth, MS CCC-PLATFORM WORKER 12/29/2024 9:30 AM EDT Office Visit [facility] [address] [facility]nd [place] [phone] Rambo Vargas MD [address] [facility] [address] [place] [phone] 01/19/2025 2:00 PM EDT Clinical Support [facility] [address] [facility], [address] [place] [phone] 01/19/2025 3:00 PM EDT Appointment [facility] Radiology [address] [place] [phone] 01/22/2025 2:00 PM EDT Appointment [facility] Radiation [address] [facility]. [address] [place] [phone] Vasu Scruggs MD [address] [facility] [address] [place] [phone] 01/22/2025 3:50 PM EDT Office Visit [facility] [address] [facility] [place] [phone] Rosemarie Hidalgo MD [address] [facility] [address] [place] [address] 02/20/2025 11:30 AM EST [facility] [address] [place] [phone] Kaleigh Hutton MD [address] [facility] [address] [place] [address] 04/13/2025 3:00 PM EST [facility] [address] [place] [address] Kye Trujillo MD [address] [place] [address] documented as of this encounter Procedures Procedure Name Priority Date/Time Associated Diagnosis Comments PET/CT FDG SKULL BASE TO MID THIGH Routine 10/24/2024 11:34 AM EDT Right tonsillar squamous cell carcinoma documented in this encounter Results * PET/CT FDG Skull Base To Mid Thigh (10/24/2024 11:34 AM EDT) Anatomical Region Laterality Modality Positron Emissio n Tomography (PET) Impressions 10/24/2024 1:56 PM EDT Near complete metabolic resolution of the locally aggressive right oropharyngeal mass and associated multistation right greater than left cervical adenopathy when compared to outside PET/CT from April 2024. There is a minimally avid residual right cervical level III lymph node that may be reactive/inflammatory and can be reassessed on future CT follow-up. No definite evidence of metabolically active metastatic progression. Suspected small volume left lower lobe aspiration/atypical infection evidenced by peribronchial airspace opacities and associated hypermetabolism of the subcentimeter left hilar and subcarinal lymph nodes. CRITICAL RESULT: No. COMMUNICATION: Per this written report. 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 TECHNIQUE: Preparation: Last oral intake (except water) last night. Diabetic: No. Blood glucose at time of FDG administration: 93 mg/dL. Radiopharmaceutical: 13.8 mCi of F-18 FDG administered intravenously at left antecubital fossa at 10:22 AM. Incubation interval: 52 minutes. Oral contrast: Not applicable. Positioning: Arms raised for torso scan, by sides for neck scan. PET/CT scanner: Siemens Biograph 40 mCT. PET/CT acquisition: [id number]-td-sno-thighs, plus magnification (zoomed) neck. Standardized uptake value (SUV): Corrected for body weight only. CT: Low-dose, [id number], without intravenous contrast. TOTAL DLP (Dose Length Product): 963.62 mGy.cm mGy cm. COMPARISON/CORRELATION: Compared to F-18 FDG PET/CT 04/23/2024 performed at another facility where standardized uptake value (SUV) measurements may not be comparable to [facility] SUV measurements due to tumor biology, incubation period, size and location of the lesion, and lean body mass. Correlated with CT neck, and chest 09/04/2024; and abdominopelvic CT 08/18/2024 FINDINGS: Technical quality: Diagnostic. Measurements: Unless otherwise specified, all SUVs refer to maximum value in the target (mSUV). Reference: Mean liver SUV 2.1; previously 2.6 CT linear measurements performed on axial images. Head and Neck: Expected mildly FDG avid generalized oropharyngeal mucosal edema and generalized soft tissue reticulation within the subcutaneous neck suggesting a degree of persistent postradiation inflammation. Interval complete metabolic resolution of the right oropharyngeal and laryngeal mass with no obvious residual focal FDG uptake beyond background head the site of the original mass. Interval near complete metabolic resolution of the multistation right cervical and left retropharyngeal adenopathy noted previously. There is a poorly resolved metabolically active probable right level III lymph node on image 80 with SUV max of 3.5. This uptake is similar to the metabolic activity in areas of oropharyngeal mucosal inflammation and may be reactive/inflammatory with warrants continued attention. No obvious space-occupying brain parenchymal masses. Unremarkable thyroid. Chest: Interval development of right apical postradiation pneumonitis on image 109 with associated FDG avidity, SUV max of 5.9. Intervally new intense hypermetabolic uptake localizing to the subcentimeter left hilar, subcarinal, and AP window lymph nodes. The SUV max ranges between 5.8 and 10.9. There is associated FDG avid segmental left lower lobe peribronchial airspace disease on image 58 with SUV max of up to 3.6. This is favored to represent aspiration or atypical infection. No sizable new or enlarging solid pulmonary nodules convincingly suspicious for metastatic disease. No obvious pathologically enlarged thoracic lymph nodes. Borderline degenerative cardiomegaly. Moderate multivessel coronary calcific atherosclerosis. No pleural or pericardial effusions. Abdomen and Pelvis: No suspicious focal hypermetabolic uptake to suggest metastatic disease. Nonspecific slightly accentuated focal hypermetabolism localizing to the right pelvic sigmoid on image 170 without definite asymmetric masslike mural thickening or soft tissue nodule. This could be peristaltic or low-grade inflammatory but can be correlated colonoscopically. No discrete suspicious solid organ focal lesions on this noncontrast exam. Slightly dysmorphic appearance of the liver and slight splenomegaly could represent early changes of chronic liver disease and mild portal hypertension in the appropriate clinical context. Normal caliber hollow viscera. No suspicious sizable mesenteric/peritoneal masses or measurable ascites. No abdominopelvic adenopathy by size criteria. Skeleton and Soft Tissues: No suspicious focal hypermetabolic uptake. No clearly aggressive lytic/blastic osseous lesions or body wall soft tissue masses. 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 TECHNIQUE: Preparation: Last oral intake (except water) last night. Diabetic: No. Blood glucose at time of FDG administration: 93 mg/dL. Radiopharmaceutical: 13.8 mCi of F-18 FDG administered intravenously atleft antecubital fossa at 10:22 AM. Incubation interval: 52 minutes. Oral contrast: Not applicable. Positioning: Arms raised for torso scan, by sides for neck scan. PET/CT scanner: Siemens Biograph 40 mCT. PET/CT acquisition: Znpayj-gd-hoy-thighs, plus magnification (zoomed)neck. Standardized uptake value (SUV): Corrected for body weight only. CT: Low-dose, ykg-fiqldk-hkye, without intravenous contrast. TOTAL DLP (Dose Length Product): 963.62 mGy.cm mGy cm. COMPARISON/CORRELATION: Compared to F-18 FDG PET/CT 04/23/2024 performed at another facility wherestandardized uptake value (SUV) measurements may not be comparable to [facility] measurements due to tumor biology, incubation period, size andlocation of the lesion, and lean body mass. Correlated with CT neck, and chest 09/04/2024; and abdominopelvic CT08/18/2024 FINDINGS: Technical quality: Diagnostic. Measurements: Unless otherwise specified, all SUVs refer to maximum valuein the target (mSUV). Reference: Mean liver SUV 2.1; previously 2.6 CT linear measurements performed on axial images. Head and Neck: Expected mildly FDG avid generalized oropharyngeal mucosal edema andgeneralized soft tissue reticulation within the subcutaneous necksuggesting a degree of persistent postradiation inflammation. Interval complete metabolic resolution of the right oropharyngeal andlaryngeal mass with no obvious residual focal FDG uptake beyond backgroundhead the site of the original mass. Interval near complete metabolic resolution of the multistation rightcervical and left retropharyngeal adenopathy noted previously. There is apoorly resolved metabolically active probable right level III lymph nodeon image 80 with SUV max of 3.5. This uptake is similar to the metabolicactivity in areas of oropharyngeal mucosal inflammation and may bereactive/inflammatory with warrants continued attention. No obvious space-occupying brain parenchymal masses. Unremarkablethyroid. Chest: Interval development of right apical postradiation pneumonitis on [id number] with associated FDG avidity, SUV max of 5.9. Intervally new intense hypermetabolic uptake localizing to thesubcentimeter left hilar, subcarinal, and AP window lymph nodes. The SUVmax ranges between 5.8 and 10.9. There is associated FDG avid segmentalleft lower lobe peribronchial airspace disease on image 58 with SUV max ofup to 3.6. This is favored to represent aspiration or atypicalinfection. No sizable new or enlarging solid pulmonary nodules convincinglysuspicious for metastatic disease. No obvious pathologically enlargedthoracic lymph nodes. Borderline degenerative cardiomegaly. Moderatemultivessel coronary calcific atherosclerosis. No pleural or pericardialeffusions. Abdomen and Pelvis: No suspicious focal hypermetabolic uptake to suggest metastatic disease. Nonspecific slightly accentuated focal hypermetabolism localizing to theright pelvic sigmoid on image 170 without definite asymmetric masslikemural thickening or soft tissue nodule. This could be peristaltic orlow-grade inflammatory but can be correlated colonoscopically. No discrete suspicious solid organ focal lesions on this noncontrast exam.Slightly dysmorphic appearance of the liver and slight splenomegaly couldrepresent early changes of chronic liver disease and mild portalhypertension in the appropriate clinical context. Normal caliber hollowviscera. No suspicious sizable mesenteric/peritoneal masses or measurableascites. No abdominopelvic adenopathy by size criteria. Skeleton and Soft Tissues: No suspicious focal hypermetabolic uptake. No clearly aggressive lytic/blastic osseous lesions or body wall softtissue masses. IMPRESSION: Near complete metabolic resolution of the locally aggressive rightoropharyngeal mass and associated multistation right greater than leftcervical adenopathy when compared to outside PET/CT from April 2024.There is a minimally avid residual right cervical level III lymph nodethat may be reactive/inflammatory and can be reassessed on future CTfollow-up. No definite evidence of metabolically active metastatic progression.Suspected small volume left lower lobe aspiration/atypical infectionevidenced by peribronchial airspace opacities and associatedhypermetabolism of the subcentimeter left hilar and subcarinal lymphnodes. CRITICAL RESULT: No. COMMUNICATION: Per this written report. Drafted by Kiya Clark MD on 10/24/2024 1:25 PM Final report signed by Kiya Clark MD on 10/24/2024 1:56 PM Maty Lr MORTGAGE ORIGINATOR IMG NM PROCEDURES Final Resu lt documented in this encounter Visit Diagnoses Diagnosis Right tonsillar squamous cell carcinoma documented in this encounter Additional Health Concerns Assessment Noted Time PHQ-9 Depression Total Score: 0 09/09/19 25 12:35 PM EDT A fall risk assessment has been complete d for the patient 09/26/2024 11:31 AM EDT A Body Mass Index follow-up plan has been documented for the patient 10/03/2024 9:53 AM EDT documented as of this encounter Care Teams Roving Department End Finder Relationship Specialty Start Date End Date Delmi Robledo MD [address] [place] [address] [place] [address] PCP - General 02/09/23 Promise Lopez RN [facility] Nurse Navigator Hematology and Oncology 05/22/24 Vasu Scruggs MD [address] [address] Service Attending Radiation Oncology 05/22/24 documented as of this encounter
--- OUTSIDE RECORDS SUMMARY | 2024-10-24 09:45 | XMS_ITS | Encounter Summary ---
Author Organization Healthcare Address [address] [id number] Care Team Providers Care Aquaculturist Name Role Phone Delmi Robledo MD Primary Care Provider [phone] Promise Lopez RN Unavailable UnaVasu De Paz MD Unavailable Reason for Visit * Imaging (Routine) - Closed Specialty Diagnoses / Procedures Referred By Klaudia larios Referred To Contact Radiology Diagnoses Right tonsillar squamous cell carcinoma Procedures PET/CT FDG Skull Base To Mid Thigh Maty Lr, OPERATIONAL TRAINER [address] [facility] [address] [place] [address] Phone: tel: fax: Referral ID Status Reason Start Date Expiration Date Visits Re quested Visits Authorized [id number] Closed 09/08/2024 03/10/2026 2 2 Encounter Details Date Type Department Care Team (Latest Contact Info) Description 10/24/2024 9:45 AM EDT - 10/24/2024 11:59 PM EDT Hospital Encounter [facility] PET Scan [address] [place] [address] Discharge Disposition: Home or Self Care Social [...] any time in the past 12 m [facility], were you homeless or living in a fci (including now)? No 08/19/2024 CAGE ASSESSMENT Answer [...] first t mario alberto in the morning (EYE-GETTER OPERATOR) to steady your nerves or to get rid of a hangover? 0 05/29/2024 CAGE Questionnaire Score 0 025 Utilities Answer Date Recorded In the past 12 months has th e [employer], [employer], oil, or water [employer] threatened to shut off services in your [...] 5 06/23/2024 12/21/19 25 Boost [facility] (Boost) [facility] liquid Take 237 mL by mouth 2 times a day. 53143 mL 5 09/08/2024 03/07/20 25 Eliquis 5 [...] Upcoming Encounters Date Type Department Care Team ([facility] st Contact Info) Description 12/29/2024 8:30 AM EDT Office Visit [facility] Voice [address] [facility], [address]nd [place] [phone] Mariza Jenkins, MS CCC-WANT AD RECEIVER 12/29/2024 9:30 AM EDT Office Visit [facility] Head, Neck & Respiratory [address] [facility], [address]nd [place] [address] Rambo Vargas MD [address] [facility] [address] [place] [address] 01/19/2025 2:00 PM EDT Clinical Support [facility] Head, Neck & Respiratory [address] [facility], [address]nd [place] [phone] 01/19/2025 3:00 PM EDT Appointment [facility] Radiology [address] [place] [phone] 01/22/2025 2:00 PM EDT Appointment [facility] Radiation [address] [facility]. [id number] [place] [phone] Vasu Scruggs MD [address] [facility] [address] [place] [phone] 01/22/2025 3:50 PM EDT Office Visit [facility] Head[facility] Neck [facility] Respiratory [address] [facility], [address]nd [place] [address] Rosemarie Hidalgo MD [address] [facility] [address] [place] [address] 02/20/2025 11:30 AM EST Office Visit [facility] Otolaryngology [address], [address] [place] [address] Kaleigh Hutton MD [address] [facility] [address] [place] [address] 04/13/2025 3:00 PM EST Office Visit [facility] Medicine Specialties [address], [address] [place] [address] Kye Trujillo MD [address] [facility] [address] [place] [address] documented as of this encounter Procedures Procedure Name Priority Date/Time Associated Diagnosis Comments PET/CT FDG SKULL BASE TO MID THIGH Routine 10/24/2024 11:34 AM EDT Right tonsillar squamous cell carcinoma documented in this encounter Visit Diagnoses Not on filedocumented in this encounter Administered Medications Inactive Administered Medications - up to 3 most recent administrations Medication Order MAR Action Action Date Dose Rate Site Fludeoxyglucose F 18 (FDG 18) radio-isotope injection 10 millicurie 10 millicurie, Intravenous, Once, 1 dose, On Sun10/24/24 at 1115, Routine, Imaging NM Protocol Orders Given 10/24/2024 10:26 AM EDT 13.79 millicuries Left Antecubital documented in this encounter Additional Health Concerns Assessment Noted Time PHQ-9 Depression Total Score: 0 09/09/19 12:35 PM EDT A fall risk assessment has been complete d for the patient 09/26/2024 11:31 AM EDT A Body Mass Index follow-up plan has been documented for the patient 10/03/2024 9:53 AM EDT documented as of this encounter Care Teams Aquaculturist Relationship Specialty Start Date End Date Delmi Robledo MD [address] [place] [address] PCP - General 02/09/23 Promise Lopez, RN [facility] Nurse Navigator Hematology and Oncology 05/22/24 Vasu Scruggs MD [address] [facility] [address] [place] [address] Service Attending Radiation Oncology 05/22/24 documented as of this encounter
--- OUTSIDE RECORDS SUMMARY | 2024-10-27 10:15 | XMS_ITS | Encounter Summary ---
Author Organization Healthcare Address [address] [id number] Care Team Providers Care Knockout Worker Name Role Phone Delmi Robledo MD Primary Care Provider [phone] Promise Lopez RN Unavailable Vasu Felipe MD Unavailable Reason for Referral * Consultation (Routine) - Authorized Specialty Diagnoses / Procedures Referred By Contac t Referred To Contact Hematology and Oncology Diagnoses Squamous cell carcinoma of oropharynx Rambo Vargas MD [address] [address] Phone: tel: fax: [facility] Head, Neck & Respiratory [address] [facility], [address]nd [place] [address] Phone: tel: fax: Referral ID Status Reason Start Date Expiration Date Visits Requested Visits Authorized [id number] Authorized Specialty Services Required 10/27/2024 04/28/2026 1 1 Scheduling Instructions *Do Not Schedule* - This referral is for managing the [facility] Dietitian workflow. Reason for Visit * Reason Comments Follow-up Encounter Details Date Type Department Care Team ([facility] Contact Info) Description 10/27/2024 10:15 AM EDT Office Visit [facility] Head, Neck & Respiratory [address] [facility], [address] [place] [phone] Rambo Vargas MD [address] [address] Squamous cell carcinoma of oropharynx Social History Tobacco Use Types Packs/Day Years [...] any time in the past 12 m [facility], were you [facility] or living in a fdc (including now)? No 08/19/2024 CAGE ASSESSMENT Answer [...] first t mario alberto in the morning (EYE-DATA PROCESSING SYSTEMS CONSULTANT) to steady your nerves or to get rid of a hangover? 0 05/29/2024 CAGE Questionnaire Score 0 025 Utilities Answer Date Recorded In the past 12 months has [employer], gas, oil, or water [employer] threatened to shut off services in your home? No 08/19/2024 Sex and Gender Information Value Date Recorded Sex Assigned at Male 05/02/2024 7:53 AM EST Legal Sex Male 8:27 PM EDT Gender Identity Not on file Sexual Orientation Choose not to disclose 2024 4:38 PM EST documented as of this encounter Last Filed Vital Signs Vital Sign Reading Time Taken Comments Blood Pressure 88/58 10/27/2024 9:43 AM EDT Pulse 77 10/27/2024 9:43 AM EDT Temperature - - Respiratory Rate 16 10/27/2024 9:43 AM EDT Oxygen Saturation 97% 10/27/2024 9:43 AM EDT Inhaled Oxygen Concentration - - Weight 96.2 kg (212 lb 1.3 oz) 10/27/2024 9:43 A M EDT Height - - Body Mass Index 29.58 08/18/2024 10:02 AM EDT documented in this encounter Miscellaneous Notes * Addendum Note - Charlotte Carmichael RN - 10/27/2024 10:15 AM EDTAddended by: CHARLOTTE CARMICHAEL on: 10/27/2024 10:48 AM Modules accepted: Orders * Progress Notes - Cat Rice MD - 10/27/2024 10:15 AM EDT Images from the original note were not included. Mr. Benigno Keita is a very pleasant 39 y.o. patient who is returning to the clinic today for his follow-up. He was last seen in my clinic on 08/11/2024 and recommended a follow up with a modified barium swallow in the PET-CT scan. 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 He was initially seen at [facility] to my clinic in consultation for evaluation and management of recently discovered oropharyngeal mass and cervical adenopathy. The patient gives a history consistent with 1st discovery of a right-sided neck mass approximately 6 months ago. The patient states that it was small when initially discovered. The patient was states that approximately 3 months ago he began experiencing significant fatigue and becoming very tired. The patient eventually presented to outside emergency department secondary to his symptoms. The patient at that time was discovered to have a large oropharyngeal mass on CT imaging and was referred to medical oncology for further assessment. The patient was evaluated by Dr. Magaña who recommended evaluation in our clinic for consideration of surgical options/biopsy. I took him to the operating room on 05/02/2024 for direct laryngoscopy andbiopsy. Pathology revealed P 16 positive squamous cell carcinoma of the right tonsil. He did well with surgery and denied complications. He underwent CT scan of the neck on 05/29/2024 and this revealed a massive right tonsil tumor with extension to the right tongue/floor of mouth, parapharyngeal space and salivary gland on the right-hand side with extensive bilateral lymphadenopathy. He underwent a PEG tube placement on 05/29/[address] Narda Ruelas. He completed chemoradiation therapy on 08/07/2024. Restaging CT scans of the neck and chest from 09/04/2024 revealed near complete response in the right oropharynx with residual disease in the right AE fold and floor of mouth and almost complete resolution of the cervical lymphadenopathy. No disease in the chest was found. Modified barium swallow some 10/08/2024 revealed penetration with thin consistencies followed by aspiration. PET-CT scan from 10/24/2024 revealed near complete metabolic resolution of the aggressive disease in the oropharynx and the neck without any evidence of distant disease. Interval History: He reported that he overall has been doing ok. In the past week, he reported some nausea and emesisafter eating. His last bowel movement was three weeks ago. He has not tried stool softeners or miralax, though he reported that those have helped in the past along with manual disimpaction. His weight has been stable with mild fluctuations. He denied any new sores or lesions in his mouth or throat. The patient has complete review of system from 10/27/24 is unremarkable for those mentioned in the HPI,Myers's esophagus, coronary artery disease, dysphagia, GERD, hypertension, sleep apnea. Radiographs: - CT scan of the neck: . 03/30/2024: Large soft tissue mass of the right tonsil extending to the right base of tongue and floor of mouth with multiple enlarged lymphadenopathy . 05/29/2024: Extensive large tonsil mass with bilateral lymphadenopathy . 09/04/2024: treatment response with nearly resolved right oropharyngeal mass - CT scan of the chest: . 09/04/2024: No evidence of metastatic disease to the chest, calcified right lower lung nodule - PET CT scan: . 04/23/2024: Hypermetabolic right palatine tonsil mass with right-sided lymphadenopathy and a single superior left jugular chain node . 10/24/2024: Resolution of the oropharyngeal hypermetabolism, very mild hypermetabolism in right level 2 lymph node I independently reviewed the images and discussed them with the patient. I do agree with the interpretation. Allergies: Allergies Allergen Reactions Cyclobenzaprine Hives, Itching and Rash Propoxyphene Rash Past medical history: As in history of present illness, Myers's esophagus, coronary artery disease, dysphagia, GERD, hypertension, sleep apnea Past surgical history: Direct laryngoscopy with biopsies, appendectomy, cholecystectomy, coronary angioplasty, inguinal hernia repair, umbilical hernia repair, EGD, PEG tube placement by Dr. Narda Ruelas 05/29/2024 Family history: reviewed and noncontributory Social history: The patient has been smoking 1 pack/day for 30 years and has a 30 pack/year history, does not drink or use any illicit drugs. PHYSICAL EXAMINATION: Visit Vitals BP 88/58 (BP Location: Right arm, Patient Position: Sitting) Pulse 77 Wt 96.2 kg (212 lb 1.3 oz) SpO2 97% BMI 29.58 kg/m?? Wt Readings from Last 3 Encounters: 10/27/24 96.2 kg (212 lb 1.3 oz) 09/26/24 97.7 kg (215 lb 6.2 oz) 09/08/24 96.2 kg (212 lb 1.3 oz) General: Healthy-appearing 39 y.o. patient, alert and oriented x3, in no acute distress, well nourished, well developed. Psychiatric evaluation: Normal mood and affect, very pleasant and cooperative. Otoscopy: did not reveal any cerumen impaction. Tympanic membranes are normal without any middle ear effusions. Nasal cavity examination: Obviously crooked right septal deviation with leftward deviation of the caudal septum off the columella and spine. Oral cavity examination: The oral cavity is pink and dry. Base of tongue is soft. The tongue demonstrates full range of motion. The patient was edentulous Neck: soft and supple. Interval decrease in size of right level 2 lymphadenopathy. Eyes: Extraocular movements are intact bilaterally. PERRLA. Neurological examination: Cranial nerves II-XII are grossly intact. Skin of the neck and face: did not reveal any evidence of significant rashes or suspicious appearing nevi or other concerning lesions. Endocrine examination: I do not feel any thyroid nodules. No thyromegaly. Respiratory: chest is symmetrical, breathing comfortably without effort. Cardiac: Regular rate and rhythm. PROCEDURE PERFORMED: Fiberoptic Flexible Laryngoscopy INDICATION: hx of oral cavity cancer DESCRIPTION OF PROCEDURE: After getting the verbal consent, I sprayed bilateral nasal cavities with lidocaine 4% and Carlos-Synephrine 1/100,000. I examined both nasal after obtaining adequate decongestion. Septum is deviated to the right. Sinonasal cavities: Clear without any suspicious lesions. No pus or polyps. Nasopharynx was clean without any suspicious lesions. Fossae of Rosenmuller: Clear bilaterally without any lesions. Base of tongue: no visible tumor or ulcerations. No significant post radiation changes. Vallecula is symmetrical without any suspicious lesions. Hypopharynx: no suspicious lesions are noted. Pyriform sinuses, post-cricoid, lateral pharyngeal helms, posterior pharyngeal wall: are unremarkable. Endolarynx was normal. 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 Narda Ruelas 05/29/2024 RECOMMENDATIONS: I discussed those findings with the patient and I answered his questions to the best of my abilities. The patient's physical examination reveals no discrete mass of the right base of tongue and no significant cervical lymphadenopathy. Flexible scope exam in clinic today showed no visible tumor or ulcerations. I independently and thoroughly reviewed the patient's CT scans of the neck and chest from 09/04/2024 and the PET-CT scan from 10/24/2024 which shows resolution of the oropharyngeal hypermetabolism and very mild hypermetabolism in right level 2 lymph node. I discussed these results with the patient andincluded photos in this note above. I also reviewed his MBS from 10/08/2024 which showed inconsistent aspiration of thin liquids. I reviewed DRY WALL NAILER's recommendations which included regular consistency diet with thin liquids follow but coughand re-swallow after thin liquids. We will have him work with DRY WALL NAILER to continue strategies to avoid as piration. In regards to his GI symptoms, we will have garland machine operator work with him on nutrition and diet modification to help with his lack of bowel movements. I will see him back in clinic in 2 months, or sooner if new concerns arise. We will draw a NavDx atthat time. In addition, he is a heavy smoker and continues to smoke 1/2 ppd and I counseled him on tobacco cessation for 4 minutes: Yes I recommended the patient quit smoking immediately and I highlighted the detrimental effects of smoking on our health: 1-smoking can cause cancer in the head and neck regions, lung, esophagus and anywhere else on the body 2-smoking can cause heart and blood vessel disease and this has a very negative impact on our health with increased risk of heart disease, stroke and delayed wound healing *Digital speech recognition software was used to dictate this note and, despite all efforts to proofread, some dictation errors may occur. If you have any questions, please do not hesitate to contactme. Rambo Vargas MD MS FACS Thread Reeler Head & Neck Oncology Thyroid/Parathyroid Surgery Rhinology & Skull Base Surgery Cosigned by Rambo Vargas MD at 10/27/2024 10:45 AM EDT Associated attestation - Rambo Vargas MD - 10/27/2024 10:45 AM EDT I saw and evaluated the patient with the resident/fellow. I discussed the case with the resident/fellow and agree with the findings and plan as documented. I was present for the entire procedure. *Digital speech recognition software was used to dictate this note and, despite all efforts to proofread, some dictation errors may occur. If you have any questions, please do not hesitate to contactme. Rambo Vargas MD MS FACS Thread Reeler Head & Neck Oncology Thyroid/Parathyroid Surgery Rhinology & Skull Base Surgery documented in this encounter Plan of Treatment Upcoming Encounters Date Type Department Care Team (Late st Contact Info) Description 12/29/2024 8:30 AM EDT Office Visit [facility] Voice [address] [facility], [address]nd [place] [phone] Mariza Jenkins MS CCC-DRY WALL NAILER 12/29/2024 9:30 AM EDT Office Visit [facility] Head[facility] Neck & Respiratory [address] [facility], [address]nd [place] [phone] Rambo Vargas MD [address] [place] [address] 01/19/2025 2:00 PM EDT Clinical Support [facility] Head[facility] Neck & Respiratory [address] [facility], [address]nd [place] [phone] 01/19/2025 3:00 PM EDT Appointment PAV G Radiology [address] [place] [phone] 01/22/2025 2:00 PM EDT Appointment [facility] Radiation [address] [facility]. [id number] [place] [phone] Vasu Scruggs MD [address] [facility] [address] [place] [address] 01/22/2025 3:50 PM EDT Office Visit [facility] Head[facility] Neck [facility] Respiratory [address] [facility], [address]nd [place] [phone] Rosemarie Hidalgo MD [address] [facility] [address] [place] [phone] 02/20/2025 11:30 AM EST Office Visit [facility] Otolaryngology [address], [address] [place] [address] Kaleigh Hutton MD [address] [facility] [address] [place] [address] 04/13/2025 3:00 PM EST Office Visit [facility] [address], [address] [place] [address] Kye Trujillo MD [address] [facility] [address] [place] [address] Scheduled Orders Name Type Priority Associated Diagnoses Orde r Schedule NavDx Lab Routine Squamous cell carcinoma of oropharynx Expected: 12/28/2024 (Approximate), Expires: 04/30/2026 Scheduled Referrals Name Type Priority Associated Diagnoses Order Schedule Ambulatory referral to [facility] Oncology Nutrition Outpatient Referral Routine Squamous cell carcinoma of oropharynx Expected: 10/27/2024 (Approximate), Expires: 04/29/2026 documented as of this encounter Visit Diagnoses Diagnosis Squamous cell carcinoma of oropharynx documented in this encounter Additional Health Concerns Assessment Noted Time PHQ-9 Depression Total Score: 0 09/09/19 12:35 PM EDT A fall risk assessment has been complete d for the patient 10/27/2024 9:43 AM EDT A Body Mass Index follow-up plan has been documented for the patient 10/27/2024 10:45 AM EDT documented as of this encounter Care Teams Knockout Worker Relationship Specialty Start Date End Date Delmi Robledo MD [address] [place] [address] PCP - General 02/09/23 Promise Lopez RN [facility] Nurse Navigator Hematology and Oncology 05/22/24 Vasu Scruggs MD [id number] [place] [address] Service Attending Radiation Oncology 05/22/24 documented as of this encounter
--- OUTSIDE RECORDS SUMMARY | 2024-10-29 14:17 | XMS_ITS | Encounter Summary ---
Author Organization Healthcare Address [address] [place] [address] Care Team Providers Care Scientific Illustrator Name Role Phone Delmi Robledo MD Primary Care Provider [phone] Promise Lopez RN Unavailable Vasu Felipe MD Unavailable Reason for Visit * Reason Comments Follow-up Encounter Details Date Type Department Care Team (Latest Contact Info) Description 10/29/2024 2:17 PM EDT - 10/29/2024 11:59 PM EDT Hospital Encounter [facility] Radiation [address] [facility]. 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 0 05/29/2024 CAGE Questionnaire Score 0 025 Utilities Answer Date Recorded In the past 12 months has th e [employer], gas, oil, or water company threatened to [...] Sign Reading Time Taken Comments Blood Pressure 102/70 10/29/2024 2:28 PM EDT Pulse 91 10/29/2024 2:28 PM EDT Temperature - - Respiratory Rate 16 10/29/2024 2:28 PM EDT Oxygen Saturation 96% 10/29/2024 2:28 PM EDT Inhaled Oxygen Concentration - - Weight 93.9 kg (207 lb 0.2 oz) 10/29/2024 2:28 P M EDT Height 180.3 cm (5' 11 ) 10/29/2024 2:28 PM EDT Body Mass Index 28.87 10/29/2024 2:28 PM EDT documented in this encounter Medications at Time of Discharge Amino Acids-Protein Hydrolys (Pro-Stat 101) liquid 30 mL by Per PEG Tube route in the morning and 30 mL before bedtime. 1800 mL 5 06/23/2024 12/21/19 25 Boost VHC (Boost) VHC liquid Take 237 mL by mouth 2 times a day. 21053 mL 5 09/08/2024 03/07/20 25 docusate sodium (Colace) 100 MG capsule Take 1 capsule by mouth 3 times a day as needed for constipation. For constipation. 90 capsule 2 10/29/2024 Eliquis 5 MG tablet Take 1 tablet [...] before bedtime. 07/03/2024 varenicline (Chantix Continuing Month Lencho) 1 MG tablet Take 1 tablet by mouth in the morning and 1 tablet before bedtime. Take with full glass of water. 60 tablet 3 06/30/2024 polyethylene glycol (Miralax) 17 g packet Take 17 g by mouth daily for 7 days. 7 each 10/29/2024 11/06/19 documented as of this encounter Miscellaneous Notes * Patient Instructions - Maty Lr APRN - 10/29/2024 2:20 PM EDT Hydration: Drink at least 8 cups (2 liters) of water daily. Fiber intake: Increase to 25-35g per day (whole grains, fruits, vegetables, beans). Physical activity: 20-30 minutes daily (walking, swimming etc ). Bowel routine: Try to go at the same time each day, preferably after meals. Don???t ignore the urgeto go. 2. Add MiraLAX if No Relief (Day 3-7) Dosage: 17 grams (1 capful) mixed in 4-8 oz of water once daily. Duration: Use for 3-7 days. No bowel movement after 7 days of MiraLAX + lifestyle changes. Severe abdominal pain, bloating, or vomiting. Blood in stool or black/tarry stools. * Progress Notes - Maty rL APRN - 10/29/2024 2:20 PM EDT [facility] RADIATION ONCOLOGY PRODUCTION MACHINIST FOLLOW UP NOTE Benigno Keita is a 39 y.o. male with a diagnosis of oral cancer who returns today for scheduled follow-up. Cancer Staging Right tonsillar squamous cell carcinoma Staging form: Pharynx - HPV-Mediated Oropharynx, AJCC 8th Edition - Clinical stage from 05/02/2024: Stage III (cT3, cN3, cM0, p16+) - Signed by Rosemarie Hidalgo MD on 05/22/2024 Referring Physician: Rosemarie Hidalgo MD Radiation Oncologist: Vasu Scruggs MD RADIATION THERAPY (XRT): Treatment Site: Head and Neck Total Dose: 6996cGy in 33 fractions of VMAT daily Date XRT completed: 06/10/24-08/06/2024 HISTORY OF PRESENT ILLNESS: Benigno Keita 39 y.o. 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 He underwent a course of chemoradiation (CISplatin (Platinol) did well overall with expected radiation toxicities of xerostomia and dysphagia. At time of his one month follow up, he reported a new sore on the palate, which was not appreciable on physical exam and had no correlating findings on CT imaging. He presents today for scheduled follow with PET imaging. Oncologic History: Briefly, he had a history of right-sided neck mass found about ~8 months ago. This was progressive,and started causing pain. The patient was seen in the emergency department on 03/30/2024, at that point a CT neck (03/30/2024) was performed, revealing a large soft tissue mass centered in the right tonsil extending anteriorly into the right tongue base. On 05/02/2024 Dr Vargas performed a direct laryngoscopy and biopsy. Pathology revealed P 16 positive squamous cell carcinoma of the right tonsil. He underwent a PEG tube placement on 05/29/[address] Narda Ruelas. Interval History: Admission 08/19/2024 for PEG tube dislodgement LE swelling 2/2 chemo and HFpEF. He is eating by mouth, soft foods and tolerating them well, some swallowing difficulty, and coughing with thin liquids, drinking 2L of Pepsie, during intake without noted cough. Denies pain. Good neck ROM. Skin to treatment area has healed nicely. Good neck ROM. Taste is returning, though some foods taste different and bland. Weight is stable. No recent illness. LE swelling is better, not taking lasix. Continues with issues with constipation for which he had taken some stool softeners. Review of Systems Constitutional: Negative for activity change, appetite change, fatigue, fever and unexpected weightchange. HENT: Positive for congestion and trouble swallowing. Respiratory: Positive for cough. Gastrointestinal: Negative. Genitourinary: Negative. Musculoskeletal: Negative. Skin: Negative. Allergic/Immunologic: Negative. Neurological: Negative. Psychiatric/Behavioral: Negative. KPS: Past Medical, Surgical, and Family History: I have reviewed Mr. Keita's medical, surgical and other pertinent history; unchanged from most recent clinic visit or updated as indicated in HPI. Social History[1] The patient has been counseled on tobacco cessation: Yes actively trying to cut back to quit. Medications: Current Outpatient Medications Medication Instructions Amino Acids-Protein Hydrolys (Pro-Stat 101) liquid 30 mL, Per PEG Tube, 2 times daily Boost VHC (Boost) VHC liquid 237 mL, Oral, 2 times daily docusate sodium (COLACE) 100 mg, Oral, 3 times daily PRN, For constipation. Eliquis 5 mg, 2 times daily famotidine (Pepcid) 20 MG tablet Take 1 tablet (20 mg) by mouth in the morning. [Paused] furosemide (Lasix) 20 MG tablet Take 1 tablet by mouth daily in the mornings for 5-7 days. Guar Gum (Nutrisource Fiber) powder 4 g, Per PEG Tube, Daily lidocaine (Xylocaine) 2 % solution 5 mL, Oral, 4 times daily PRN metoprolol tartrate (LOPRESSOR) 25 mg, 2 times daily moisturizing mouth (Biotene Oral Dry Mouth) solution Use 1 spray as needed for dry mouth mupirocin (Bactroban) 2 % ointment 1 Application, 2 times daily ondansetron ODT (ZOFRAN-ODT) 8 mg, Oral, Every 8 hours PRN oxyCODONE (ROXICODONE) 10-20 mg, Oral, Every 4 hours PRN pantoprazole (PROTONIX) 40 mg, Daily before breakfast pregabalin (Lyrica) 100 MG capsule Every 8 hours prochlorperazine (COMPAZINE) 10 mg, Oral, Every 6 hours PRN sulfamethoxazole-trimethoprim (Bactrim DS) 800-160 MG tablet 1 tablet, 2 times daily varenicline (CHANTIX CONTINUING MONTH LENCHO) 1 mg, Oral, 2 times daily, Take with full glass of water. [Paused] verapamil SR (CALAN-SR) 120 mg, ZZ Daily RT Allergies: Cyclobenzaprine and Propoxyphene Physical Exam: Vital Signs: Visit Vitals BP 102/70 Pulse 91 Resp 16 Ht 1.803 m (5' 11 ) Wt 93.9 kg (207 lb 0.2 oz) SpO2 96% BMI 28.87 kg/m?? Smoking Status Every Day BSA 2.17 m?? Wt Readings from Last 3 Encounters: 11/17/24 93.9 kg (207 lb) 10/29/24 93.9 kg (207 lb 0.2 oz) 10/27/24 96.2 kg (212 lb 1.3 oz) DATA: Radiographic Studies: PET CT 10/24/2024 IMPRESSION: Near complete metabolic resolution of the [...] subcentimeter left hilar and subcarinal lymph nodes. CT Scan of Neck 09/04/2024 IMPRESSION: Treatment response with nearly resolved right oropharyngeal and laryngeal mass with residual disease in the right aryepiglottic fold and floor of mouth. Additionally there is nearly resolved adenopathy with residual smaller lymph nodes at right level II. These areas can be assessed on future follow-ups. CT scan of the neck: . 03/30/2024: Large soft tissue mass of the right tonsil extending to the right base of tongue and floor of mouth with multiple enlarged lymphadenopathy . 05/29/2024: Extensive large tonsil mass with bilateral lymphadenopathy PET CT scan: . 04/23/2024: Hypermetabolic right palatine tonsil mass with right-sided lymphadenopathy and a single superior left jugular chain node. PATHOLOGY: OROPHARYNX, RIGHT TONSIL; RIGHT TONSILLECTOMY: - [id number] (HPV-ASSOCIATED) SQUAMOUS CELL CARCINOMA Laboratory studies: no new ASSESSMENT AND PLAN In summary, Benigno Keita 39 y.o. 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 Exam remains stable. He is recovering appropriately though with persistent or opharyngeal deconditioning and long-term dysphagia. Also reports xerostomia and is not currently using oral rinses or supportive therapies. Reviewed PET imaging: stable with complete resolution of prior oropharyngeal mass and adenopathy; small minimally avid right level III node likely reactive, to be monitored on future CT imaging. Re-reviewed use of supportive therapies for oral hygiene and dry mouth management. Of note: He met with dietitian just prior to this visit, recommendations for dietary changes to help with constipation. New Medications Ordered This Visit Medications polyethylene glycol (Miralax) 17 g packet Sig: Take 17 g by mouth daily for 7 days. Dispense: 7 each Refill: 0 MBS from 10/08/2024 which showed inconsistent aspiration of thin liquids. I reviewed recommendations to follow thin liquids with cough and re-swallow after thin liquids. Follow-up plan: will continue surveillance with CT and follow up with Dr. Dominguez in December. Future Appointments Date Time Provider Department Center 12/29/2024 8:30 AM Mariza Jenkins MS [facility]-HEMMING AND TACKING MACHINE [facility]PER[facility] 12/29/2024 9:30 AM Rambo Vargas MD [facility] 01/19/2025 2:00 PM [facility] 01/19/2025 3:[address] [facility] 01/22/2025 2:00 PM [facility] 01/22/2025 3:50 PM Rosemarie Hidalgo MD [facility] 02/20/2025 11:30 AM Kaleigh Hutton MD [facility] 04/13/2025 3:00 PM Kye Trujillo MD [facility] I believe all of his questions were answered. He knows to call with questions or concerns. A total of 30 minutes was spent preparing, performing an examination, counseling, educating the patient, and care coordination. Maty Lr RN, MSN, UNDERWRITER SOLICITATION DIRECTOR-C, Nurse Practitioner Radiation Oncology [1] Social History Tobacco Use Smoking status: Every Day Current packs/day: 0.50 Average packs/day: 1 pack/day for 30.7 years (30.4 ttl pk-yrs) Types: Cigarettes Start date: 1994 Smokeless tobacco: Never Vaping Use Vaping status: Every Day Substance Use Topics Alcohol use: Never Drug use: Never documented in this encounter Plan of Treatment Upcoming Encounters Date Type Department Care Team (Late st Contact Info) Description 12/29/2024 8:30 AM EDT Office Visit [facility] Voice [address] [facility] [place] [phone] Gregory Mariza A, MS CCC-HEMMING AND TACKING MACHINE OPERATOR 12/29/2024 9:30 AM EDT Office Visit [facility] Head, Neck & Respiratory [address] [facility] [place] [phone] Rambo Vargas MD [address] [facility] [address] [place] [address] 01/19/2025 2:00 PM EDT Clinical Support [facility] Head, Neck & Respiratory [address] [facility] [place] [phone] 01/19/2025 3:00 PM EDT Appointment [facility] G Radiology [address] [place] [phone] 01/22/2025 2:00 PM EDT Appointment [facility] Radiation [address] [id number] [place] [phone] Vasu Scruggs MD [address] [facility] [address] [place] [phone] 01/22/2025 3:50 PM EDT Office Visit [facility] Head, Neck & Respiratory [address] [facility] [place] [phone] Rosemarie Hidalgo MD [address] [facility] [address] [place] [address] 02/20/2025 11:30 AM EST [facility] [address] [place] [address] Kaleigh Hutton MD [address] [place] [address] 04/13/2025 3:00 PM EST [facility] [address] [place] [address] Kye Trujillo MD [address] [place] [address] documented as of this encounter Visit Diagnoses Diagnosis Squamous cell carcinoma of oropharynx- Primary documented in this encounter Additional Health Concerns Assessment Noted Time PHQ-9 Depression Total Score: 0 09/09/19 12:35 PM EDT A fall risk assessment has been complete d for the patient 10/27/2024 9:43 AM EDT A Body Mass Index follow-up plan has been documented for the patient 10/27/2024 10:45 AM EDT documented as of this encounter Care Teams Scientific Illustrator Relationship Specialty Start Date End Date Demli Robledo MD [address] [place] [address] [place] [address] PCP - General 02/09/23 Promise Lopez RN [facility] Nurse Navigator Hematology and Oncology 05/22/24 Vasu Scruggs MD [address] [place] [phone] Service Attending Radiation Oncology 05/22/24 documented as of this encounter
--- OUTSIDE RECORDS SUMMARY | 2024-11-17 14:40 | XMS_ITS | Encounter Summary ---
Author Organization [facility] Address [address] [id number] Care Team Providers Care Machine Tack Puller Name Role Phone Delmi Robledo MD Primary Care Provider [phone] Promise Lopez RN Unavailable Vasu Felipe MD Unavailable Reason for Referral * Imaging (Routine) - Pending Review Specialty Diagnoses / Procedures Referred By Klaudia larios Referred To Contact Gastroenterology Diagnoses Myers's esophagus with dysplasia Procedures EGD Kaleigh Hutton MD [address] [address] Phone: tel: fax: Referral ID Status Reason Start Date Expiration Date Visits Requested Visits Authorized [id number] Pending Review Specialty Services Required 11/17/2024 05/19/2026 1 1 * Consultation (Routine) - Authorized Specialty Diagnoses / Procedures Referred By Klaudia larios Referred To Contact Gastroenterology Diagnoses Myers's esophagus with dysplasia Kaleigh Hutton MD [address] [address] Phone: tel: fax: Referral ID Status Reason Start Date Expiration Date Visits Requested Visits Authorized [id number] Authorized Specialty Services Required 11/17/2024 05/19/2026 1 1 Reason for Visit * Reason Comments esophageal dilation * Consultation (Routine) - Closed Specialty Diagnoses / Procedures Referred By Kaludia larios Referred To Contact Otolaryngology Diagnoses Myers's esophagus without dysplasia Rambo Vargas MD [address] [address] Phone: tel: fax: [facility] Otolaryngology [address] [place] [address] Phone: tel: fax: Referral ID Status Reason Start Date Expiration Date V isits Requested Visits Authorized [id number] Closed Specialty Services Required 11/04/2024 05/06/2026 1 1 Encounter Details Date Type Department Care Team (Late st Contact Info) Description 11/17/2024 2:40 PM EDT Consult [facility] Otolaryngology [address], [address] [place] [phone] Kaleigh Hutton MD [address] [address] Myers's esophagus with dysplasia (Primary Dx) Social History Tobacco Use Types Packs/Day Years [...] any time in the past 12 m [facility], were you homeless or living in a longterm (including now)? No 08/19/2024 CAGE ASSESSMENT Answer [...] first t mario alberto in the morning ([employer]) to steady your nerves or to get rid of a hangover? 0 05/29/2024 CAGE Questionnaire Score 0 025 Utilities Answer Date Recorded In the past 12 months has th e electric, gas, oil, or water [employer] threatened to shut off services in your home? No 08/19/2024 Sex and Gender Information Value Date Recorded Sex Assigned at Male 05/02/2024 7:53 AM EST Legal Sex Male 8:27 PM EDT Gender Identity Not on file Sexual Orientation Choose not to disclose 2024 4:38 PM EST documented as of this encounter Last Filed Vital Signs Vital Sign Reading Time Taken Comments Blood Pressure 110/74 11/17/2024 3:01 PM EDT Pulse - - Temperature - - Respiratory Rate - - Oxygen Saturation - - Inhaled Oxygen Concentration - - Weight 93.9 kg (207 lb) 11/17/2024 3:01 PM EDT Height - - Body Mass Index 28.87 10/29/2024 2:28 PM EDT documented in this encounter Miscellaneous Notes * Progress Notes - Kaleigh Hutton MD - 11/17/2024 2:40 PM EDT Otolaryngology Head and Neck Surgery Chief Complaint Patient presents with esophageal dilation Dear Dr. Vargas, I had the pleasure of seeing your patient, Benigno Keita in the Otolaryngology-Head and Neck Surgery Clinic today in consultation regarding his dysphagia. SUBJECTIVE: Angel is a 39 y.o. male with dysphagia. 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 He underwent a course of chemoradiation (CISplatin (Platinol). He completed chemoradiation therapy on 08/07/2024. He had dysphagia a few years ago. He had Myers's esopahgus and had a dilation. This was a few years before the cancer diagnosis. That helped for a while but after he started having difficulty swallowing again. Now he has to take smaller bites. He feels like things get stuck and cause him to vomit. He has to drink soda to force things down. Anything with vinegar will burn. Sometimes he has to cough to get food to come up and he has to throw up to get things to come up. Softer food does not getstuck. Fried foods are worse. He is losing weight. 2-3 hours to complete meals. Smoking history: He reports that he has been smoking cigarettes. He started smoking about 30 years ago. He has a 30.4 pack-year smoking history. He has never used smokeless tobacco. MEDS: Current Medications[1] ALLERGIES: Cyclobenzaprine and Propoxyphene PERTINENT SOCIAL HISTORY: He reports no history of alcohol use. He reports no history of drug use. PHYSICAL EXAM: BP 110/74 Wt 93.9 kg (207 lb) BMI 28.87 kg/m?? Gen: Well developed, well nourished male in no apparent distress. Neuro: A&Ox3. Respiratory: No increased WOB, no stridor OC/OP: Tongue midline and mobile, no oral cavity lesions or masses. No tonsillar hypertrophy, without exudate or erythema. Palate elevates symmetric. Lymph: No palpable lymphadenopathy PROCEDURE NOTE: PROCEDURE PERFORMED: Flexible laryngoscopy with stroboscopy INDICATION: Dysphagia PROVIDER: Kaleigh Hutton MD ANESTHESIA: Local (lidocaine with afrin) PROCEDURE IN DETAIL: The patient was placed in the seated sniffing position. A flexible laryngoscope was inserted through the nasal cavity and guided to an area just above the vocal folds. The larynxwas visualized during respiration and phonation. See findings below. The patient was discharged in good condition. Velopharynx: Complete closure without weakness Vocal Fold Color/Quality: Normal Vocal Fold Mobility/Position: Decreased abduction bilaterally. Atrophy of Vocal Folds: None Vocal Fold Lesions: None Supraglottic Hyperfunctional Contraction: Present Tremor: None Subglottis: DARLING given the decreased abduction of the TVF Piriforms: No pooling of secretions Pharyngeal strength: Decreased Other Findings: Thickened epiglottis Vibratory Parameters: Symmetry: No phase asymmetry Amplitude:Decreaed Mucosal Wave: Decreased Periodicity: 100% periodic Closure: At modal pitch, complete Summary: Radiation associated changes DATA REVIEW: I personally reviewed the following data below: Lab Results Component Value Date TSH 2.21 09/04/2024 NOTES FROM GI REGARDING EGD in 2022- There is no mention of esophageal dilation. Last EGD 11/30/[address] Mike: - Severe erosive gastritis. 1 cm sliding hiatal hernia. Long segment Myers's esophagus with no evidence of dysplasia and no active reflux. Erosive duodenitis. - Pathology: Gastric biopsy: Gastric antral type mucosa with reactive (chemical) gastropathy. Positive for intestinal metaplasia. - Esophagus biopsy distal 38 cm: Glandular mucosa positive for intestinal metaplasia, no dysplasia identified. Squamous mucosa with features suggestive of reflux esophagitis. Consistent with Myers's esophagus. - Esophagus biopsy distal at 40 cm: Glandular mucosa positive for intestinal metaplasia, no dysplasia identified. Squamous mucosa with features suggestive of reflux esophagitis. Consistent with Myers's esophagus. Operative/Procedure Note: Patient Information: Benigno Keita 1985 male [birth year] Indication: Evaluation of dysphagia which started several months ago. History of GERD which resolved with famotidine. Takes tramadol and Eliquis. Smokes 1 pack/day past 28 years. Consent: The benefits, risks, and alternatives to the procedure were discussed and informed consentwas obtained. The risks discussed included anesthesia reactions, bleeding, perforation, surgery, and missed lesions. Preparation: EKG pulse, pulse oximetry and blood pressure monitored. Instrument: Olympus [id number]-[id number] Anesthesia: Propofol as per Anesthesia EBL: 0 ml Procedure: Appropriate time-out protocol was followed: the correct patient, the correct procedure, and the correct equipment in the room were confirmed. The gastroscope was gently passed through the mouth and under direct visualization the esophagus was intubated. The endoscope was passed down the esophagus, through the stomach, and into the 3rd portion of the duodenum. Retroflexion was performedat the gastroesophageal junction. Color, texture, mucosa, and anatomy of Esophagus, Stomach, and Duodenum were carefully examined with the scope. The patient tolerated the procedure well and there were no complications. After completion of the examination, patient was transferred to the recovery room. Findings: Oropharynx: Tobacco stained vocal cords and normal arytenoid folds Esophagus: Long segment Myers's esophagus (intestinal metaplasia) with tongues up to 4 cm long. Circumferential for 1 cm. (C1 M4). 4 Biopsies were taken at 2 cm (38 and 40 cm) intervals throughout the length of the esophageal intestinal metaplasia. Narrowband imaging was used to look for evidenceof dysplasia none was found. There is no active reflux noted. EG-Junction: No evidence of a stricture. 1 cm sliding hiatal hernia. Cardia: Normal Fundus: Normal Body: Normal Antrum: Severe erosive gastritis with erythema, erosions, hemorrhage, and edema but no ulcers were seen. Multiple biopsies were taken. Pylorus: Normal Duodenum Bulb: Erosive duodenitis. 2nd Portion: Normal ampulla 3rd Portion: Normal with normal villi and no evidence of celiac disease Impression: Severe erosive gastritis. 1 cm sliding hiatal hernia. Long segment Myers's esophagus with no evidence of dysplasia and no active reflux. Erosive duodenitis. Plan: If Myers's is confirmed with no dysplasia, recommend repeat EGD for rebiopsy in 3 years. Start pantoprazole 40 mg every morning on an empty stomach, 30 minutes before breakfast. Avoid aspirinand NSAIDs. PET CT 10/24/2024 IMPRESSION: Near complete metabolic [...] PATHOLOGY: OROPHARYNX, RIGHT TONSIL; RIGHT TONSILLECTOMY: - [id number] (HPV-ASSOCIATED) SQUAMOUS CELL CARCINOMA LABORATORY ENGINEER note 10/08/24 ASSESSMENT Moderate pharyngeal dysphagia characterized by inconsistent aspiration of thin liquids secondary toimpaired airway protection due to no epiglottal inversions and foreshortened epiglottis. No penetration or aspiration on nectar thickened liquids, pudding and solids. He is able to clear aspirant with cough. RECOMMENDATIONS Regular consistency diet with thin liquids. He should cough and re-swallow after each swallow of thin liquids. Aspiration precautions including up at 90 degrees for all p.o.. Head & neck swallowing treatment to teach swallowing exercises and supraglottic swallow. Ensure good oral care before and after all p.o.. I reviewed the MBS. There is a small CP bar which does not impair bolus flow. There is residue in the vallecula. I reviewed the note from Dr. Vargas I reviewed the note from Dr. Hidalgo Assessment/Plan Benigno Keita is a 39 y.o. 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 He hasa history of Myers's esophagus as well. I have referred him to GI for further management of this.At this time, I think he would benefit from swallow therapy. He has a small CP bar, but this does not impair bolus flow. We discussed a dilation of this area, but we will wait until he has seen GI and done swallow therapy. I would like to continue to monitor him because he has decreased TVF abduction bilaterally. This islikely a side effect of radiation. He is not having any trouble breathing currently. However, giventhe possible progression, he needs airway monitoring. Follow up in 3 months. If you have any questions, please do not hesitate to contact me. Thank you again for allowing me toparticipate in his care. Best personal regards, Kaleigh Hutton MD [1] Current Outpatient Medications: Amino Acids-Protein Hydrolys (Pro-Stat 101) liquid, 30 mL by Per PEG Tube route in the morning and 30 mL before bedtime., Disp: 1800 mL, Rfl: 5 Boost VHC (Boost) VHC liquid, Take 237 mL by mouth 2 times a day., Disp: 58279 mL, Rfl: 5 docusate sodium (Colace) 100 MG capsule, Take 1 capsule by mouth 3 times a day as needed for constipation. For constipation., Disp: 90 capsule, Rfl: 2 Eliquis 5 MG tablet, Take 1 tablet (5 mg) by mouth in the morning and 1 tablet (5 mg) in the evening., Disp: , Rfl: famotidine (Pepcid) 20 MG tablet, Take 1 tablet (20 mg) by mouth in the morning., Disp: , Rfl: [Paused] furosemide (Lasix) 20 MG tablet, Take 1 tablet by mouth daily in the mornings for 5-7 days., Disp: 10 tablet, Rfl: 0 Guar Gum (Nutrisource Fiber) powder, 4 g by Per PEG Tube route daily., Disp: 120 g, Rfl: 5 lidocaine (Xylocaine) 2 % solution, Take 5 mL by mouth 4 (four) times a day as needed for mild pain., Disp: 200 mL, Rfl: 1 metoprolol tartrate (Lopressor) 25 MG tablet, Take 1 tablet (25 mg) by mouth in the morning and 1 tablet (25 mg) in the evening., Disp: , Rfl: mupirocin (Bactroban) 2 % ointment, Apply 1 Application topically in the morning and 1 Application before bedtime., Disp: , Rfl: ondansetron ODT (Zofran-ODT) 8 MG disintegrating tablet, Dissolve 1 tablet on the tongue every 8 hours as needed for nausea or vomiting., Disp: 30 tablet, Rfl: 3 oxyCODONE (Roxicodone) 10 MG immediate release tablet, Take 1-2 tablets by mouth every 4 hours as needed for severe pain (g89.3)., Disp: 180 tablet, Rfl: 0 pantoprazole (Protonix) 40 MG EC tablet, Take 1 tablet (40 mg) by mouth daily before breakfast. Do not crush, chew, or split., Disp: , Rfl: pregabalin (Lyrica) 100 MG capsule, every 8 hours., Disp: , Rfl: prochlorperazine (Compazine) 10 MG tablet, Take 1 tablet (10 mg) by mouth every 6 hours as needed for nausea or vomiting., Disp: 30 tablet, Rfl: 3 sulfamethoxazole-trimethoprim (Bactrim DS) 800-160 MG tablet, Take 1 tablet by mouth in the morningand 1 tablet before bedtime., Disp: , Rfl: varenicline (Chantix Continuing Month Huber) 1 MG tablet, Take 1 tablet by mouth in the morning and 1tablet before bedtime. Take with full glass of water., Disp: 60 tablet, Rfl: 3 moisturizing mouth (Biotene Oral Dry Mouth) solution, Use 1 spray as needed for dry mouth, Disp: 44.3 mL, Rfl: 0 [Paused] verapamil SR (Calan-SR) 120 MG ER tablet, Take 1 tablet (120 mg) by mouth 1 (one) time each day., Disp: , Rfl: documented in this encounter Plan of Treatment Upcoming Encounters Date Type Department Care Team (Late st Contact Info) Description 12/29/2024 8:30 AM EDT Office Visit [facility] Voice [address] [facility] [place] [phone] Gregory Mariza Prashanth, MS CCC-LABORATORY ENGINEER 12/29/2024 9:30 AM EDT Office Visit [facility] Neck [facility] Respiratory [address] [facility] [place] [address] Rambo Vargas MD [address] [facility] [address] [place] [address] 01/19/2025 2:00 PM EDT Clinical Support [facility] Head[facility] Neck [facility] Respiratory [address] [facility] [place] [phone] 01/19/2025 3:00 PM EDT Appointment [facility] Radiology [address] [place] [phone] 01/22/2025 2:00 PM EDT Appointment [facility] Radiation [address] [facility] [place] [phone] Vasu Scruggs MD [address] [facility] [address] [place] [phone] 01/22/2025 3:50 PM EDT Office Visit [facility] Neck [facility] Respiratory [address] [facility] [place] [phone] Rosemarie Hidalgo MD [address] [facility] [address] [place] [phone] 02/20/2025 11:30 AM EST [facility] Visit [facility] [address] [place] [address] Kaleigh Hutton MD [address] [facility] [address] [place] [address] 04/13/2025 3:00 PM EST [facility] Visit [facility] Medicine Specialties [address] [place] [address] Kye Trujillo MD [address] [place] [address] Scheduled Orders Name Type Priority Associated Diagnoses Orde r Schedule EGD Endoscopy Routine Myers's esophagus with dysplasia Expected: 11/17/2024, Expires: 05/21/2026 Scheduled Referrals Name Type Priority Associated Diagnoses Order Schedule Ambulatory referral to Gastroenterology Outpatient Referral Routine Myers's esophagus with dysplasia 1 Occurrences starting 11/17/2024 until 05/21/2026 documented as of this encounter Visit Diagnoses Diagnosis Myers's esophagus with dysplasia- Primary documented in this encounter Additional Health Concerns Assessment Noted Time PHQ-9 Depression Total Score: 0 09/09/19 12:35 PM EDT A fall risk assessment has been complete d for the patient 10/27/2024 9:43 AM EDT A Body Mass Index follow-up plan has been documented for the patient 11/17/2024 6:09 PM EDT documented as of this encounter Care Teams Machine Tack Puller Relationship Specialty Start Date End Date Delmi Robledo MD [address] [place] [address] PCP - General 02/09/23 Promise Lopez RN [facility] Nurse Navigator Hematology and Oncology 05/22/24 Vasu Scruggs MD [address] [place] [address] Service Attending Radiation Oncology 05/22/24 documented as of this encounter
--- OUTSIDE RECORDS SUMMARY | 2024-12-08 11:00 | XMS_ITS | Encounter Summary ---
Author Organization Healthcare Address [address] [id number] Care Team Providers Care Sales And Service Associate Name Role Phone Delmi Robledo MD Primary Care Provider [phone] Promise Lopez RN Unavailable UnaVasu De Paz MD Unavailable Reason for Visit * Consultation (Routine) - Closed Specialty Diagnoses / Procedures Referred By Contac t Referred To Contact Voice and Swallow Diagnoses Dysphagia, oropharyngeal Rambo Vargas MD [address] [facility] [address] [place] [address] Phone: tel: fax: [facility] [address] [place] [address] Phone: tel: fax: Referral ID Status Reason Start Date Expiration Date V isits Requested Visits Authorized [id number] Closed Specialty Services Required 11/24/2024 05/26/2026 1 1 Encounter Details Date Type Department Care Team (Latest Contact Info) Description 12/08/2024 11:00 AM EDT Office Visit [facility] [address] [place] [address] Andrés Munguia Dysphagia, oropharyngeal (Primary Dx) Social History Tobacco Use Types [...] any time in the past 12 m [facility], were you homeless or living [...] first t mario alberto in the morning (EYE-APPLICATION TRAINER) to steady your nerves or to get rid of a hangover? 0 05/29/2024 CAGE Questionnaire Score 0 025 Utilities Answer Date Recorded In the past 12 months has [employer], gas, oil, or water [employer] threatened to shut off services in your home? No 08/19/2024 Sex and Gender Information Value Date Recorded Sex Assigned at Male 05/02/2024 7:53 AM EST Legal Sex Male 8:27 PM EDT Gender Identity Not on file Sexual Orientation Choose not to disclose 2024 4:38 PM EST documented as of this encounter Miscellaneous Notes * Progress Notes - Andrés Munguia - 12/08/2024 11:00 AM EDT [facility] Dysphagia Evaluation Referring Provider: Dr. Rambo Vargas Diagnosis: Dysphagia (R13.12) Date of Service: 12/08/2024 Pertinent Medical History: is a 39 y.o. male with T3 N2 M0 P 16 positive squamous cell carcinoma ofthe right tonsil extending to the right base of tongue. T3 N2 M0 P 16 positive squamous cell carcinoma of the right tonsil extending to the right base of tongue. He had a biopsy in the OR on 05/02/24.He had a PEG placed 05/29/24 and removed 09/26/24. He completed chemoradiation treatment 07/28/24. He had a Modified Barium Swallow evaluation on 10/08/24 that revealed Moderate pharyngeal dysphagia characterized by inconsistent aspiration of thin liquids secondary to impaired airway protection dueto no epiglottal inversions and foreshortened epiglottis. No penetration or aspiration on nectar thickened liquids, pudding and solids. He is able to clear aspirant with cough. SUBJECTIVE Patient reports that he has inconsistent swelling under his chin and was concerned that he may havecancer again. The swelling is less this morning from the picture he sent. ? Lymphedema. Patient stated he may be depressed and was referred to his PCP for follow up. OBJECTIVE Patient reports his swallowing is improving and that he does not restrict his diet at all. For example he had a hamburger and salad for dinner last night. He reports he has an occasional cough when drinking liquids. He denies recent pneumonia and fees his weight is stable. He reports that he does his swallowing exercises every other day. However, he is unable to describeany of the exercises. He was encouraged to perform the swallowing exercises 5 times daily and to pair the exercises with other daily activities like after lunch, after dinner, after breakfast, before bed and upon waking up. Education: He was educated on the results of the MBS completed on 10/08/24. He was provided with information regarding the risks of aspiration. He was also provided with the risks vs. benefits of an oral diet. He was taught strategies to mitigate the risk of pneumonia such as performing oral care before and after each meal. The signs and symptoms of pneumonia were reviewed. He appeared to demonstrated functional understanding. Discussed with Dr. Tolentino and he placed an order for lymphedema therapy. Dysphagia Therapy: Reviewed Head & Neck cancer swallowing exercises to be done 5 x daily on a schedule throughout the day. The exercises included: effortful swallow, Meredith and Renee maneuvers. Range of motionexercises of the shoulders, neck, jaw, tongue and voice. ASSESSMENT Tolerating a regular diet with thin liquids. ? Lymphedema Patient reports feeling depressed. PLAN Continue current diet with thin liquids. Aspiration precautions including up at 90 degrees for all p.o.. Continue to monitor weight and signs/symptoms of pneumonia. Perform oral care before and after each meal. Perform Head & Neck cancer swallowing exercises as prescribed. Seek out treatment with PCP regarding feeling depressed. . documented in this encounter Plan of Treatment Upcoming Encounters Date Type Department Care Team (Late st Contact Info) Description 12/29/2024 8:30 AM EDT Office Visit [facility] [address] [place] [address] Mariza Jenkins, MS CCC-SURGEON/PRESIDENT 12/29/2024 9:30 AM EDT Office Visit [facility] [address] [facility] [place] [phone] Rambo Vargas MD [address] [facility] [address] [place] [phone] 01/19/2025 2:00 PM EDT Clinical Support [facility] [address] [facility] [place] [phone] 01/19/2025 3:00 PM EDT Appointment [facility] [address] [place] [phone] 01/22/2025 2:00 PM EDT Appointment [facility]iation [address] [facility] [place] [phone] Vasu Scruggs MD [address] [facility] [address] [place] [phone] 01/22/2025 3:50 PM EDT Office Visit [facility] [address] [facility] [place] [phone] Rosemarie Hidalgo MD [address] [facility] [address] [place] [phone] 02/20/2025 11:30 AM EST Office Visit [facility] Otolaryngology [address] [place] [phone] Kaleigh Hutton MD [address] [facility] [address] [place] [address] 04/13/2025 3:00 PM EST Office Visit [facility] Medicine Specialties [address] [place] [phone] Kye Trujillo MD [address] [place] [address] documented as of this encounter Visit Diagnoses Diagnosis Dysphagia, oropharyngeal- Primary Dysphagia, oropharyngeal phase documented in this encounter Additional Health Concerns Assessment Noted Time PHQ-9 Depression Total Score: 0 09/09/19 12:35 PM EDT A fall risk assessment has been complete d for the patient 10/27/2024 9:43 AM EDT A Body Mass Index follow-up plan has been documented for the patient 12/08/2024 4:17 PM EDT documented as of this encounter Care Teams Sales And Service Associate Relationship Specialty Start Date End Date Delmi Robledo MD [address] [place] [address] PCP - General 02/09/23 Promise Lopez RN [facility] Nurse Navigator Hematology and Oncology 05/22/24 Vasu Scruggs MD [address] [facility] [address] [place] [phone] Service Attending Radiation Oncology 05/22/24 documented as of this encounter
--- OUTSIDE RECORDS SUMMARY | 2024-12-12 09:15 | XMS_ITS ---
Author Organization [facility] Address [address] [place] [address] Care Team Providers Care Director Economic Name Role Phone Andrés Goldman II Unavailable [phone] Payne -HEALTH INSPECTOR Elissa Unavailable Unavaila ble Allergies Allergen (clinical drug ingredient) Drug/Non Drug Allergy documented on EMR Reaction Allergy Type Onset Date Status Flexeril hives Drug Allergy Active Results Component Value Reference Range Notes Urine Test ANALYZER Reviewed date:12/12/2024 02:02:17 PM Interpretation:+OPI +OXY Performing Lab: Notes/Report: +OPI +OXY Heroin Metabolite (6AM) NEG Amphetamine (AMP) NEG Benzodiazepine (BERNIE) NEG Cocaine (RAJ) NEG Methadone (MTD) NEG Opiate (OPI) POS Oxycodone (OXY) POS REASON FOR VISIT Low back pain Medications Medication SIG (Take, Route, Frequency, Duration) Notes Start Date End Date Status OxyCODONE Hydrochloride 5 mg 1 tab(s) orally every 6 hours; Duration: 28 days October 2024 RX DO NOT FILL SOONER THAN 28 DAYS, (OK TO FILL EARLY, ONLY IF CLOSED) Active pregabalin 100 mg 1 cap(s) orally 3 times a day; Duration: 28 days DO NOT FILL SOONER THAN 28 DAYS, (OK TO FILL EARLY, ONLY IF CLOSED) Active baclofen 10 mg 1 tab(s) orally 3 times a day; Duration: 30 days December 2024 RX DO NOT FILL SOONER THAN 28 DAYS, (OK TO FILL EARLY, ONLY IF CLOSED) Active verapamil 120 mg/24 hours 1 cap(s) orally once a day; Duration: 30 day(s) 06/06/2022 Active Eliquis 5 mg as directed orally 2 times a day; Duration: 30 day(s) Active Metoprolol Tartrate 25 mg ; Duration: 90 Active OxyCODONE Hydrochloride 10 mg 1 tab(s) orally every 6 hours; Duration: 28 days December 2024 RX DO NOT FILL SOONER THAN 28 DAYS, (OK TO FILL EARLY, ONLY IF CLOSED) Active Vital Signs Blood pressure systolic 98 mm Hg 12/13/19 25 Blood pressure diastolic 70 mm Hg 025 Heart Rate 86 /min 12/12/2024 Height 71 in 12/12/2024 Weight 190 lbs 12/12/2024 BMI 26.5 kg/m2 12/12/2024 Encounters Encounter Location Date Provider Diagnosis [facility] [address] [place] [address] 12/12/2024 Andrés Goldman Other 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 Refill Baclofen 10mg TID prn 2. Refill Oxycodone 10mg QID 3. Refill Lyrica 100mg TID 4. RTC 2 months October 17, 2024: The patient presents to the [facility] office in [facility] for an audiovisual-telem edicine visit. The patient was evaluated by the expert medical writer and a urine drug screen was obtained as well as vital signs. Portions of the physical examination were assisted by the expert medical writer during the audiovisual-telem edicine visit Review of [...] and see him back in 2 months. 12/12/2024: The patient is a 39-year-old male with chronic pain involving the low back, knees, ankles, and feet. He reports the worst pain in the lower back and describes his symptoms as constant and generalized, with aching, burning, sharp, and stabbing qualities. He rates his average pain intensity as 7 out of 10. Pain is exacerbated by activities such as bending, lifting, and stooping, and is somewhat relieved by lying in specific positions. Pain significantly interferes with his activities of daily living and overall quality of life. His current medication regimen includes oxycodone 10 mg QID, which provides approximately 80% pain relief for about 5 hours. He also takes baclofen 10 mg TID as needed and pregabalin (Lyrica) 100 mg TID. The patient denies any adverse effects from the current regimen. BART and urine drug screening (UDS) were reviewed and are within acceptable limits. Opioid risk assessment is moderate. The patient continues to be enrolled in hepatitis (HEP) monitoring. He has a history of Stage 3 cancer treated at [facility], as well as cardiac stents, anxiety, and depression. During prior visits, it was emphasized that medications should not be obtained from other providers (e.g., oncology), particularly in light of a past abnormal urine drug screen. The patient previously underwent bilateral lumbar radiofrequency ablation (RFA) at L3, L4, and L5 on 12/25/2022, which resulted in 40-50% relief lasting approximately two weeks. However, he currently declines further injection therapy. We will continue the current opioid regimen and adjunctive medications as listed, with a follow-up scheduled in two months or sooner if needed. 12/12/2024 Other spondylosis, lumbar region (ICD-10 - M47.896) October 17, 2024: The patient presents to the [facility] office in [facility] for an audiovisual-telem edicine visit. The patient was evaluated by the expert medical writer and a urine drug screen was obtained as well as vital signs. Portions of the physical examination were assisted by the expert medical writer during the audiovisual-telem edicine visit Review of [...] and see him back in 2 months. 12/12/2024: The patient is a 39-year-old male with chronic pain involving the low back, knees, ankles, and feet. He reports the worst pain in the lower back and describes his symptoms as constant and generalized, with aching, burning, sharp, and stabbing qualities. He rates his average pain intensity as 7 out of 10. Pain is exacerbated by activities such as bending, lifting, and stooping, and is somewhat relieved by lying in specific positions. Pain significantly interferes with his activities of daily living and overall quality of life. His current medication regimen includes oxycodone 10 mg QID, which provides approximately 80% pain relief for about 5 hours. He also takes baclofen 10 mg TID as needed and pregabalin (Lyrica) 100 mg TID. The patient denies any adverse effects from the current regimen. BART and urine drug screening (UDS) were reviewed and are within acceptable limits. Opioid risk assessment is moderate. The patient continues to be enrolled in hepatitis (HEP) monitoring. He has a history of Stage 3 cancer treated at [facility], as well as cardiac stents, anxiety, and depression. During prior visits, it was emphasized that medications should not be obtained from other providers (e.g., oncology), particularly in light of a past abnormal urine drug screen. The patient previously underwent bilateral lumbar radiofrequency ablation (RFA) at L3, L4, and L5 on 12/25/2022, which resulted in 40-50% relief lasting approximately two weeks. However, he currently declines further injection therapy. We will continue the current opioid regimen and adjunctive medications as listed, with a follow-up scheduled in two months or sooner if needed. 12/12/2024 Radiculopathy, lumbar region (ICD-10 - M54.16) October 17, 2024: The patient presents to the [facility] office in [facility] for an audiovisual-telem edicine visit. The patient was evaluated by the expert medical writer and a urine drug screen was obtained as well as vital signs. Portions of the physical examination were assisted by the expert medical writer during the audiovisual-telem edicine visit Review of [...] and see him back in 2 months. 12/12/2024: The patient is a 39-year-old male with chronic pain involving the low back, knees, ankles, and feet. He reports the worst pain in the lower back and describes his symptoms as constant and generalized, with aching, burning, sharp, and stabbing qualities. He rates his average pain intensity as 7 out of 10. Pain is exacerbated by activities such as bending, lifting, and stooping, and is somewhat relieved by lying in specific positions. Pain significantly interferes with his activities of daily living and overall quality of life. His current medication regimen includes oxycodone 10 mg QID, which provides approximately 80% pain relief for about 5 hours. He also takes baclofen 10 mg TID as needed and pregabalin (Lyrica) 100 mg TID. The patient denies any adverse effects from the current regimen. BART and urine drug screening (UDS) were reviewed and are within acceptable limits. Opioid risk assessment is moderate. The patient continues to be enrolled in hepatitis (HEP) monitoring. He has a history of Stage 3 cancer treated at [facility], as well as cardiac stents, anxiety, and depression. During prior visits, it was emphasized that medications should not be obtained from other providers (e.g., oncology), particularly in light of a past abnormal urine drug screen. The patient previously underwent bilateral lumbar radiofrequency ablation (RFA) at L3, L4, and L5 on 12/25/2022, which resulted in 40-50% relief lasting approximately two weeks. However, he currently declines further injection therapy. We will continue the current opioid regimen and adjunctive medications as listed, with a follow-up scheduled in two months or sooner if needed. 12/12/2024 Cervicalgia (ICD-10 - M54.2) October 17, 2024: The patient presents to the [facility] office in [facility] for an audiovisual-telem edicine visit. The patient was evaluated by the expert medical writer and a urine drug screen was obtained as well as vital signs. Portions of the physical examination were assisted by the expert medical writer during the audiovisual-telem edicine visit Review of [...] and see him back in 2 months. 12/12/2024: The patient is a 39-year-old male with chronic pain involving the low back, knees, ankles, and feet. He reports the worst pain in the lower back and describes his symptoms as constant and generalized, with aching, burning, sharp, and stabbing qualities. He rates his average pain intensity as 7 out of 10. Pain is exacerbated by activities such as bending, lifting, and stooping, and is somewhat relieved by lying in specific positions. Pain significantly interferes with his activities of daily living and overall quality of life. His current medication regimen includes oxycodone 10 mg QID, which provides approximately 80% pain relief for about 5 hours. He also takes baclofen 10 mg TID as needed and pregabalin (Lyrica) 100 mg TID. The patient denies any adverse effects from the current regimen. BART and urine drug screening (UDS) were reviewed and are within acceptable limits. Opioid risk assessment is moderate. The patient continues to be enrolled in hepatitis (HEP) monitoring. He has a history of Stage 3 cancer treated at [facility], as well as cardiac stents, anxiety, and depression. During prior visits, it was emphasized that medications should not be obtained from other providers (e.g., oncology), particularly in light of a past abnormal urine drug screen. The patient previously underwent bilateral lumbar radiofrequency ablation (RFA) at L3, L4, and L5 on 12/25/2022, which resulted in 40-50% relief lasting approximately two weeks. However, he currently declines further injection therapy. We will continue the current opioid regimen and adjunctive medications as listed, with a follow-up scheduled in two months or sooner if needed. Plan Of Treatment Medication Medication Name Sig Start Date Stop Date Notes OxyCODONE Hydrochloride 5 mg 1 tab(s) orally every 6 hours; Duration: 28 days October 2024 RX DO NO T FILL SOONER THAN 28 DAYS, (OK TO FILL EARLY, ONLY IF CLOSED) pregabalin 100 mg 1 cap(s) orally 3 times a day; Duration: 28 days DO NOT FILL SOONER THAN 28 DAYS, (OK TO FILL EARLY, ONLY IF CLOSED) baclofen 10 mg 1 tab(s) orally 3 times a day; Duration: 30 days December 2024 RX DO NOT FILL SOONER THAN 28 DAYS, (OK TO FILL EARLY, ONLY IF CLOSED) OxyCODONE Hydrochloride 10 mg 1 tab(s) orally every 6 hours; Duration: 28 days December 2024 RX DO NOT FILL SOONER THAN 28 DAYS, (OK TO FILL EARLY, ONLY IF CLOSED) Treatment Notes Assessment Notes Other sales and marketing professional (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 Refill Baclofen 10mg TID prn 2. Refill Oxycodone 10mg QID 3. Refill Lyrica 100mg TID 4. RTC 2 months Next Appt Details Follow Up: 2 Months, Reason: Provider Name:Andrés trivedi, 02/06/2025 01:15:00 PM, [address], [address], [place], [address], Procedure Notes * Category Sub-Category Detail Notes PROVIDER ENCOUNTER AND OVERSIGHT Consult Performed By: John ([facility] CARE DIRECTOR RN-BC-[facility]) Iris montelongoy 12/12/2024 01:49:45 PM EDT > collaborated treatment plan with Andrés hardy M.D., supervising physician Progress Notes * Benigno KEITADOB:[birth year] (39 yo M)Acc No.[id number]:12/12/2024 FollowUP Patient: Benigno ROTHMAN Provider: Papo Goldman II, M.D. Resource:John ([facility] CARE DIRECTOR RN-BC-[facility])Megan :1985 A ge:39 Y S ex:Male Date:12/12/2024 Address:[address] [place] [address] [id number] Subjective: * Chief Complaints: * 1 . Low back pain. * HPI: T ODAYS PAIN EVALUATION: MEDICATION FOLLOW UP: T he patient is currently prescribed oxycodone 10 QID, which provides 80% relief of pain symptoms for 5 hours. The last dose was taken 12/12/2024 Denies side effects. C URRENT PAIN SYMPTOMS: L ocation of Worst Pain: L ow Back, Generalized Body Pain, P ain Frequency: c onstant, always, P ain Description: a johnnie, burning, sharp, stabbing, A verage Pain Score VAS: 7 , P ain Exacerbation: bending, lifting, stooping, P ain Alleviation: Laying in specific positions, A DL/Quality of Life Interference: Everyday Life. P AIN MANAGEMENT TREATMENT HISTORY: IMAGING HISTORY: 0 06/27/2022 EMG BLE-This is a borderline normal [...] pathology. Otherwise I will recommend clinical correlation 0 08/04/2022 MRI Lumbar- Degenerative disc disease as above 1 XR Cervical-No acute process 0 11/07/2023 - Central L5-S1disc herniation indenting the anterior thecal sac. Left paracentral L3-4 disc herniation indenting the anterior thecal sac. Left-sided T11-12 disc herination indenting the anterior thecal sac. Degenerative disc disease involving the lumbar spine with no other sites of lumbar disc herniation or conus or cauda equina compression. Mild bilateral L4-5 foraminal stenosis . P REVIOUS INJECTION\PROCEDURE HISTORY:? 0 10/30/2022 #1 LMBB AZUL L3,L4,L5 with 80 % for 1 day 0 11/13/2022 #2 LMBB AZUL L3,L4,L5 with 80 % for 1 day 0 12/25/2022 RFA AZUL L3, L4, L5 40-50% relief for 2 weeks. P HYSICAL/AQUA THERAPY/DME/OTHER HISTORY: P chelita has an inversion table. 2 023 - 04/09/2024 Patient continues a prescribed home exercise program 3-5 times per week, (sits ups, push ups, litfs low weight weights) as of 09/22/2024 N o therapies reported 12/12/2024. P ERTINENT SURGICAL EVALUATIONS/SPECIALIST CONSULTS N o prior surgical consult . P REVIOUS PAIN CLINIC CARE: F [facility] patient of [facility] . S DIONNE OF INITIAL EVALUATION: 0 06/06/2022 New patient consult referred by Dr Payne for chronic lower back pain onset about 21 years ago without incident . The patient says that he has a history of cardiac disease and suffered an CO last year. The patient is status post [...] review.. C OMPLIANCE: RISK ASSESSMENT AND STRATIFICATION: R ISK GROUP: . U RINE DRUG TESTIN 08/20/2023 Screen Expected 0 10/15/2023 Screen Expected 0 12/10/2023 Screen Expected Definitive Expected 1 04/09/2023 Screen Expected 0 04/09/2024 Screen Expected 0 06/02/2024 Screen Expected Definitive Expected 0 07/30/2024 Screen Unexpected (oxy) ; Definitive Unexpected(+fent) 0 10/16/2024 S creen Expected,Definitive Expected, 0 12/12/2024 Screen Expected. M ONITORING:?Morphine Equivalent (MME): 0 K ASPER reviewed today and appropriate . T ESTING/RISK ASSESSMENTS O RT Score/Result: 0. * ROS: G ENERAL: Fever [...] d enies endocrine issues. * Medical History: A nxiety diagnosed (not managed), Depression diagnosed in (not managed), hyperlipidemia diagnosed 2020, managed by Payne unknown, HTN diagnosed 2020, managed by Payne unknown, 2024 pt diagnosed with cancer stage 3 [facility]. * Surgical History: c holecystetomy pt denies 2002, hernia repair [facility] ([facility]) (OP) 11/20/2019, cardiac stent [facility] ([facility]) (OP) 2021, appendectomy (unknown) 2002, [employer] [facility]/[place]/ UNKNOWN/ 1 night stay 2024. * Family History: Denies family hx of substance abuse. * Social History: S moking: Yes P PD: , age started smoking: ,determination:. P ersonal History Drug Use: No. Alcohol: No. 6. * Medications: T aking baclofen 10 mg tablet 1 tab(s) orally 3 times a day , Taking pregabalin 100 mg capsule 1 cap(s) orally 3 times a day , Taking Eliquis 5 mg tablet as directed orally 2 times a day , Taking verapamil 120 mg/24 hours capsule, extended release 1 cap(s) orally once a day , Taking Metoprolol Tartrate 25 mg tablet , Taking OxyCODONE Hydrochloride 5 mg tablet 1 tab(s) orally every 6 hours , Medication List reviewed and reconciled with the patient * Allergies: F lexeril: hives - Side Effects. Objective: * Vitals: B P: 98/70, HR: 86, Pain VAS (0-10): 7, Ht: 71, Wt: 190, BMI:26.5Index. * Examination: G eneral Examination: Nurse/Dental Assistant Medical Assistant: Bianca Rae (MA-LEX) 12/12/2024 01:40:06 PM EDT >,. General Appearance: w ell-nourished individual in no [...] . Assessment: * Assessment: 1. O ther prison (current) drug therapy - Z79.899 (Primary) 2 . O ther spondylosis, lumbar region - M47.896 3 . R adiculopathy, lumbar region - M54.16? 4. C ervicalgia - M54.2 October 17, 2024: The patient presents to the [facility] office in [facility] for an audiovisual-telemedicine visit. The patient was evaluated by the expert medical writer and a urine drug screen was obtained as well as vital signs. Portions of the physical examination were assisted by the expert medical writer during the audiovisual-telemedicine visit Review of history [...] and see him back in 2 months. 12/12/2024: T he patient is a 39-year-old male with chronic pain involving the low back, knees, ankles, and feet. He reports the worst pain in the lower back and describes his symptoms as constant and generalized, with aching, burning, sharp, and stabbing qualities. He rates his average pain intensity as 7 out of 10. Pain is exacerbated by activities such as bending, lifting, and stooping, and is somewhat relieved by lying in specific positions. Pain significantly interferes with his activities of daily living and overall quality of life. His current medication regimen includes oxycodone 10 mg QID, which provides approximately 80% pain relief for about 5 hours. He also takes baclofen 10 mg TID as needed and pregabalin (Lyrica) 100 mg TID. The patient denies any adverse effects from the current regimen. BART and urine drug screening (UDS) were reviewed and are within acceptable limits. Opioid risk assessment is moderate. The patient continues to be enrolled in hepatitis (HEP) monitoring. He has a history of Stage 3 cancer treated at [facility], as well as cardiac stents, anxiety, and depression. During prior visits, it was emphasized that medications should not be obtained from other providers (e.g., oncology), particularly in light of a past abnormal urine drug screen. The patient previously underwent bilateral lumbar radiofrequency ablation (RFA) at L3, L4, and L5 on 12/25/2022, which resulted in 40-50% relief lasting approximately two weeks. However, he currently declines further injection therapy. We will continue the current opioid regimen and adjunctive medications as listed, with a follow-up scheduled in two months or sooner if needed. Plan: * Treatment: Value Reference Range H eroin Metabolite (6AM) NEG * A mphetamine (AMP) NEG * B enzodiazepine (BERNIE) NEG * C ocaine (RAJ) NEG * M ethadone (MTD) NEG * O piate (OPI) POS POS * O xycodone (OXY) POS POS * Steve(FD-[facility]), Mendy 025 02:06:45 PM EDT >John ([facility] CARE DIRECTOR RN-BC[facility])Megan 12/12/2024 02:46:23 PM EDT > Appropriate. Do not send for confirmation Notes: 12/12/2024 1. Refill Baclofen 10mg TID prn 2. Refill Oxycodone 10mg QID 3. Refill Lyrica 100mg TID 4. RTC 2 months?? * Procedures: Sonia MOHAN ENCOUNTER AND OVERSIGHT: Consult Performed By: Ac natarajan ([facility] CARE DIRECTOR RN-[facility])Megan 12/12/2024 01:49:45 PM EDT >. c ollaborated treatment plan with Papo Goldman M.D., supervising physician. * Follow Up: 2 Months * * Electronically signed by Pavan Lopez ([facility] CARE DIRECTOR RN-[facility]) on 12/14/2024 at 11:14 AM CDT Sign off status: Completed true * Provider: Papo Goldman II, M.D. Date: 0 12/12/2024 Generated for Shanel grayson/Finn/Katiuskaitting on: 0 12/16/2024 08:43 PM CDT History and Physical Notes * HPI (History of Present Illness) Category Sub-Category Detail Notes Category Not es PAIN MANAGEMENT TREATMENT HISTORY SUMMARY OF INITIAL EVALUATION: 06/06/2022 New patient consult referred by Dr Payne for chronic lower back pain onset about 21 years ago without incident . The patient says that he has a history of cardiac disease and suffered an CO last year. The patient is status post [...] Patient has an inversion table. 2022 - 0 04/09/2024 Patient continues a prescribed home exercise program 3-5 times per week, (sits ups, push ups, litfs low weight weights) as of 09/22/2024 No therapies reported 12/12/2024 PERTINENT SURGICAL EVALUATIONS/SPECIALIST CONSULTS No prior surgical consult PREVIOUS INJECTION\PROCEDURE HISTORY: 10/30/2022 #1 LMBB AZUL L3,L4,L5 with 80 % for 1 day11/13/2022 #2 LMBB AZUL L3,L4,L5 with 80 % for 1 day12/25/2022 RFA AZUL L3, L4, L5 40-50% relief for 2 weeks PREVIOUS PAIN CLINIC CARE: [facility] COMPLIANCE RISK ASSESSMENT AND STRATIFICATION: RISK GROUP: URINE DRUG TESTIN08/20/2023 Screen Ex pected 10/15/2023 Screen Expected 12/10/2023 Screen Expected Definitive Expected 02/08/2024 Screen Expected 04/09/2024 Screen Expected 06/02/2024 Screen Expected Definitive Expected 07/30/2024 Screen Unexpected (oxy) ; Definitive Unexpected(+fent) 10/16/2024 Screen Expected,Definitive Expected, 12/12/2024 Screen Expected MONITORING: Morphine Equivalent (MME): 0 BART reviewed today and appropriate TESTING/RISK ASSESSMENTS ORT Score/Resul t: 0 TODAYS PAIN EVALUATION MEDICATION FOLLOW UP: The patient is currently prescribed oxycodone 10 QID, which provides 80% relief of pain symptoms for 5 hours. The last dose was taken 12/12/2024 Denies side effects CURRENT PAIN SYMPTOMS: Location of Worst Pain:: Low Back, Generalized Body Pain Pain Frequency:: constant, always Pain Description:: aching, burning, tobias p, stabbing Average Pain Score VAS:: 7 Pain [...] wi th an antalgic gait, pitched forward Nurse/Dental Assistant Medical Assistant: Bianca Bowie (MA-LEX) 12/12/2024 01:40:06 PM EDT >, Lumbar Spine/Lower Back Straight leg raising test: [...]
--- NOTE | 2024-12-16 20:46 | ECG_ITS ---
APPROVED REPORT Exam: Resting ECG HR:78 bpm ECG Measurements Heart Rate 78 AXES HI 178 P 77 QRSd 89 QRS 48 QT 396 T 74 QTc 430 Conclusion SINUS RHYTHM WITH OCCASIONAL VENTRICULAR PREMATURE COMPLEXES NONSPECIFIC ST & T-WAVE ABNORMALITY BORDERLINE ECG UNCONFIRMED REPORT Electronically signed by : JAIME FREEDMAN, 12/17/2024 07:43:55
[2024-12-16 20:52] VITALS: BP 129/44; PULSE 81; RESP 16; TEMP 36.7; O2SAT 100; BMI 27.3
--- NOTE | 2024-12-16 20:53 | XR_ITS ---
PROCEDURE INFORMATION: Exam: XR Chest Exam date and time: 12/16/2024 8:56 PM Age: 39 years old Clinical indication: Pain; Shortness of breath; Chest pressure; Prior surgery; Surgery date: 6+ months; Surgery type: Cardiac stents; Additional info: SOPrashanth and fitz TECHNIQUE: Imaging protocol: Radiologic exam of the chest. Views: 1 view. COMPARISON: No relevant prior studies available. FINDINGS: Lungs: Unremarkable. No consolidation. Pleural spaces: Unremarkable. No pleural effusion. No pneumothorax. Heart/Mediastinum: Unremarkable. No cardiomegaly. Bones/joints: Unremarkable. IMPRESSION: No acute findings.
--- NOTE | 2024-12-16 20:56 | ED_ITS ---
<Statement entered by Lorena Blakely DO - 12/18/24 21:22> I was consulted by the TOO, and we discussed the complexity of problems being addressed. I approve the treatment and management plan for this patient's care in the emergency department, thus performing a substantial portion of the medical decision making. Lorena Blakely DO Discharge Plan Disposition Patient Disposition: Home, Self-Care Condition: Good Prescriptions Prescriptions: New potassium chloride [Klor-Con M20] 20 mEq tablet,ER particles/crystals 20 meq PO BID Qty: 4 0RF Referrals Follow up/Referrals: Provider,Referral, MD [Primary Care Provider, Medical] - See instructions Activity Restrictions/Add. Instructions Additional Instructions/Restrictions: Please return to the emergency department with any worsening signs or symptoms please take your potassium supplementation 2 pills twice daily tomorrow, please follow-up with your PCP and assistant store manager operations in the upcoming days. Clinical Impressions Clinical Impression: Chest pressure Instructions Patient Instructions: DI for Atypical Chest Pain, DI for Chest Pain Print Language Print Language: Cymro Discharge ED Provider: Lorena Blakely General Adult HPI General Chief complaint: Chest Pain Stated complaint: AFIB; Chest Pressure and Pain Earlier Time Seen by Provider: 12/16/24 20:44 Mode of Arrival: Ambulatory Source of Information: Patient Description of Symptoms (Recalled from ER Triage Doc. by RN): Pt presents to the ed with c/o chest tightness that began approx 1230 today while going to PCP. Pt reports to having and ekg done at this time and being advised to come to the ED. Pt reports pain is intermittent in nature with assocaited nausea and vomiting. Pt reports pain radiates into bilateral shoulder blades. History of Present Illness HPI narrative: 39-year-old male presents to the emergency department with multitude of symptomatology, most consistently being his waxing and waning substernal chest pain that will radiate into bilateral shoulders at times, this started around 12 PM today, waxes and wanes, at maximal was a 7 out of 10, currently a 1-2 out of 10, he mitts to shortness of breath with these episodes, denies any fever or chills, admits to nausea and multiple episodes of vomiting today, also endorses what sound like a presyncopal episode this morning at around 6 AM , patient states he got lightheaded/dizzy felt like he was in a pass out, did not fully lose consciousness, had some episodes of nausea vomiting this morning, patient was seen by his PCP at around 2 PM today, who advised him to come to the emergency department after obtaining EKG, which is available for my review which shows atrial fibrillation, no ST segment changes, however somewhat incomplete EKG due to missing lateral leads. Patient states his delayed emergency department presentation was due to unreliable childcare . 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 Initial triage vitals are unremarkable. Please note that above description of symptoms, in this electronic medical record under categorization of recalled from ER triage doctor by RN are reflective of an initial nursing assessment, however, is not reflective of my full history and physical exam that was personally taken and clarified. Consequentially, this preceding description of symptoms, which may include the patient's categorized chief complaint in the EMR, do not reflect my personal clinical impression, and the ultimate description of history of present illness and patient stated complaints should be deferred to this section of the note. Unless stated otherwise or congruent with this section of the note, additional signs, symptoms, or incongruence should be interpreted as inaccurate with my clinical impression. Onset (ago): hour(s) Related Data Previous Rx's ?Medication ?Instructions ?Recorded potassium chloride 20 mEq 20 meq PO BID #4 tabs tablet,extended release(part/cryst) (Klor-Con M) Allergies Allergy/AdvReac Type Severity Reaction Status Date / Time acetaminophen (From Allergy Unknown Verified 12/16/24 20:57 Darvocet-N) allergy reaction cyclobenzaprine (From Allergy Unknown Verified 12/16/24 20:57 Flexeril) allergy reaction propoxyphene (From Allergy Unknown Verified 12/16/24 20:57 Darvocet-N) allergy reaction PFSH [facility] Disclaimer: The information contained in this section may have been updated after the patient was seen, as this information can be updated by other users. Social History Smoking Status: Current every day smoker alcohol intake: never current occupational status: other Travel in the last 8 weeks?: None ROS Obtained: Yes All systems reviewed & no additional complaints except as documented Physical Exam General General appearance: alert and in no apparent distress Head Head exam: atraumatic and normocephalic Eye Eye exam: Present normal appearance, PERRL and EOMI Neck Neck exam: Present full ROM; Absent meningismus Chest Chest inspection: Present normal inspection; Absent tenderness Respiratory Respiratory exam: Absent respiratory distress, wheezes, stridor, accessory muscle use or prolonged expiratory phase Cardiovascular Cardiovascular exam: Present normal rhythm and other (Pulses equal and symmetric in bilateral upper and lower extremities) Abdominal Exam Abdominal exam: Absent distention, tenderness, guarding or rebound Extremities Exam Extremities exam: Absent edema Neurological Exam Neurological exam: Present alert Psychiatric Psychiatric exam: Present normal affect Skin Skin exam: Present warm and dry Medical Decision Making Medical Records Medical records reviewed: Yes I reviewed the patient's medical records. Screening: Per USPSTF and CDC recommendations, given the prevalence of disease in our region, it is our hospital?s policy to screen for HIV and viral Hepatitis for all patients aged 18 and over and those with ongoing risk factors. Cb Inquiry Pt receiving controlled substance: No Cb was queried for this patient: No Vital Signs: 12/16/24 20:52 12/16/24 21:35 Temperature 98.1 F Temperature Source Oral Pulse Rate 90 Pulse Rate [Radial] 81 Respiratory Rate 16 18 Blood Pressure 109/71 L Blood Pressure [Right Arm] 129/44 L Blood Pressure Mean [Right Arm] 72 Blood Pressure Position Sitting Blood Pressure Position [Right Arm] Sitting 02 Sat by Pulse Oximetry 100 99 Oxygen Delivery Method Room Air Room Air Lab Data Lab results reviewed: Yes I reviewed the patient's lab results. Lab Results 12/16/24 20:50: WBC 5.0, RBC 4.15 L, Hgb 12.3 L, Hct 35.9 L, MCV 86.5, MCH 29.6, MCHC 34.3, RDW 13.2, Plt Count 134 L, MPV 10.0, Neut % (Auto) 74.0, Lymph % (Auto) 16.9, Highlands % (Auto) 6.5, Eos % (Auto) 1.8, Baso % (Auto) 0.6, Neut # (Auto) 3.7, Lymph # (Auto) 0.9, Highlands # (Auto) 0.3, Eos # (Auto) 0.1, Baso # (Auto) 0.0, PT 12.5, INR 1.14 H, Sodium 131 L, Potassium 2.7 L*, Chloride 92 L, Carbon Dioxide 32 H, Anion Gap 9.7, BUN 5 L, Creatinine 0.70, Estimated Creat Clear 175, Estimated GFR 124, Est GFR ( Amer) 150, Glucose 101 H, Calcium 8.9, Magnesium 1.5 L, Total Bilirubin 1.1, AST 20, ALT 8 L, Alkaline Phosphatase 53, Troponin I < 0.01, NT-Pro-B Natriuret Pep 2050 H, Total Protein 6.3, Albumin 3.9, Globulin 2.4, Albumin/Globulin Ratio 1.6, Lipase 196 12/16/24 20:50 12/16/24 20:50 Orders (Tests/Meds): ED MEDICATIONS Discontinued Medications Generic Name Dose Route Start Last Admin Trade Name Freq PRN Reason Stop Dose Admin Aspirin 324 mg 12/16/24 20:58 12/16/24 21:03 Aspirin 81mg Chewable Tablet PO 12/16/24 20:59 324 mg ONCE ONE Administration Magnesium Oxide 400 mg 12/16/24 21:22 12/16/24 21:33 Magnesium Oxide 400mg Tablet PO 12/16/24 21:23 400 mg ONCE ONE Administration Morphine Sulfate 4 mg 12/16/24 20:54 12/16/24 21:06 Morphine 4mg/Ml Syringe IV 12/16/24 20:55 4 mg ONCE ONE Administration Ondansetron HCl 4 mg 12/16/24 20:54 12/16/24 21:05 Ondansetron 4mg/2ml Vial IV 12/16/24 20:55 4 mg ONCE ONE Administration Potassium Chloride 60 meq 12/16/24 21:22 12/16/24 21:33 Potassium Chloride 20meq Tab PO 12/16/24 21:23 60 meq ONCE ONE Administration ORDERS Category Date Time Status XR chest portable Stat Exams 12/16/24 20:53 Taken Complete Blood Count Auto Diff Stat Lab 12/16/24 20:50 Completed Comprehensive Metabolic Panel Stat Lab 12/16/24 20:50 Completed Lipase Stat Lab 12/16/24 20:50 Completed Magnesium Stat Lab 12/16/24 20:50 Completed NT Pro Brain Natriuretic Pep. Stat Lab 12/16/24 20:50 Completed PT INR [Prothrombin Time INR] Stat Lab 12/16/24 20:50 Completed Troponin I Q3H Lab 12/16/24 23:53 Ordered Troponin I Q3H Lab 12/17/24 02:53 Ordered Troponin I Stat Lab 12/16/24 20:50 Completed Medical Decision Narrative: 39-year-old male presents the emergency department with chest pain/chest discomfort shortness of air nausea vomiting presyncopal episode this morning, see HPI for detailed past medical history, differential diagnosis to include but not limited to, ACS, cardiac arrhythmia, electrolyte disturbance, pneumothorax, costochondritis, panic attack, gastritis, GERD, among others. I discussed this patient's case with the attending physician Dr. Blakely Will obtain basic laboratory studies, CXR, EKG, lipase magnesium level proBNP PT/INR, troponin, will give 4 mg IV morphine for pain and 4 mg of Zofran for nausea. As well as 324 mg p.o. aspirin. CBC is notable for thrombocytopenia at 134 otherwise unremarkable PT is within normal limits, INR is 1.14 Mild hyponatremia at 131, with hypokalemia 2.7, mild hypomagnesium 1.5, lipase in normal limits. Will give 60 milliequivalents p.o. potassium, as well as 400 mg p.o. magnesium oxide for electrolyte replacement, Initial troponin is less than 0.01, proBNP is elevated at 2040. I discussed the results with the patient the bedside, reexamination of the patient at approximately 10:35 PM, patient is resting comfortably in the bed, chest pain-free, patient's chest pain has been ongoing since 12 PM, would see some elevation of the patient's troponin at this time. Negative EKG. Patient would need to follow-up with assistant store manager operations and PCP in the upcoming days/weeks. Continue with medication as prescribed. Will prescribe 40 mEq p.o. potassium twice daily for 1 day or until PCP follow-up. Patient voiced understanding and agreement with current treatment plan/discharge plan. Strict ED return precautions given. Heart score of 2. Critical Care Critical Care Time Critical Care Time: No
[2024-12-16 21:02] LABS: Hematocrit 35.9 % (42.0-52.0); Hemoglobin 12.3 g/dL (14.1-18.0); Immature Granulocytes % 0.2 %; Mean Corpuscular HGB Conc 34.3 g/dL (31.8-35.4); Mean Corpuscular Hemoglobin 29.6 pg (27.0-31.2); Mean Corpuscular Volume 86.5 fl (80-94); Nucleated Red Blood Cells % 0 %; Platelet Count 134 K/mm3 (142-424); Red Blood Count 4.15 M/mm3 (4.60-6.20); Red Cell Distribution Width-SD 41.1 fL; White Blood Count 5.0 K/mm3 (4.8-10.8)
[2024-12-16] MEDS: ASPIRIN 81MG CHEWABLE TABLET 324 MG PO (21:03)
[2024-12-16] MEDS: ONDANSETRON 4MG/2ML VIAL 4 MG IV (21:05)
[2024-12-16] MEDS: MORPHINE 4MG/ML SYRINGE 4 MG IV (21:06)
[2024-12-16 21:14] LABS: Alanine Aminotransferase 8 U/L (12-78); Albumin Level 3.9 g/dl (3.5-5.0); Albumin/Globulin Ratio 1.6 (1.1-1.8); Alkaline Phosphatase 53 U/L (38-126); Anion Gap 9.7 mEq/L (5-15); Aspartate Amino Transferase 20 U/L (17-59); Bilirubin,Total 1.1 mg/dl (0.2-1.3); Blood Urea Nitrogen 5 mg/dl (9-20); Calcium 8.9 mg/dl (8.4-10.2); Carbon Dioxide 32 mmol/L (22.0-30.0); Chloride 92 mmol/L (98-107); Creatinine Clearance Estimated 175 mL/min (50-200); Creatinine,Serum 0.70 mg/dl (0.66-1.25); Estimated Glomerular Filt Rate 124 ml/min (>60); GFR (African American) 150 ML/MIN (>60); Globulin 2.4 g/dL (1.3-3.2); Glucose 101 mg/dl (74-100); INR 1.14 (0.9-1.1); Lipase 196 U/L (23-300); Magnesium 1.5 mg/dl (1.6-2.3); Prothrombin Time 12.5 seconds (10.1-12.5); Sodium 131 mmol/L (136-145); Total Protein,Serum 6.3 g/dl (6.3-8.2)
[2024-12-16 21:19] LABS: Potassium 2.7 mmoL/L (3.5-5.1)
--- NOTE | 2024-12-16 21:20 | PC.NURSE ---
Per the lab. K+ 2.7, provider notified.
[2024-12-16 21:25] LABS: NT Pro Brain Natriuretic Pep. 2050 pg/mL (0-125)
[2024-12-16 21:26] LABS: Troponin I < 0.01 ng/ml (0.00-0.034)
[2024-12-16] MEDS: MAGNESIUM OXIDE 400MG TABLET 400 MG PO (21:33)
[2024-12-16] MEDS: POTASSIUM CHLORIDE 20MEQ TAB 60 MEQ PO (21:33)
[2024-12-16 21:35] VITALS: BP 109/71; PULSE 90; RESP 18; O2SAT 99
--- OUTSIDE RECORDS SUMMARY | 2024-12-16 21:44 | XMS_ITS | Encounter Summary ---
Author Organization Healthcare Address [address] [id number] Care Team Providers Care Outboard Motor Inspector Name Role Phone Delmi Robledo MD Primary Care Provider [phone] Promise Lopez RN Unavailable Vasu Felipe MD Unavailable Sintia Lester NEON TUBE PUMPER Unavailable Unavailable Encounter Details Date Type Department Care Team (Late Contact Info) Description 01/30/2023 Orders Only External Location [address] [place] [phone] Provider, External Social History Tobacco Use Types Packs/Day Years Used Date Smoking Tobacco: Every Day Sex and Gender Information Value Date Recorded Sex Assigned at Male 05/02/2024 7:53 AM EST Legal Sex Male 8:27 PM EDT Gender Identity Not on file Sexual Orientation Choose not to disclose 2024 4:38 PM EST documented as of this encounter Plan of Treatment Upcoming Encounters Date Type Department Care Team ([facility] Contact Info) Description 12/29/2024 8:30 AM EDT Office Visit [facility] Voice [address] [facility] [address] [place] [phone] Mariza Jenkins MS CCC-STEEL SHOT HEADER OPERATOR 12/29/2024 9:30 AM EDT Office Visit [facility] Res[facility] [address] [phone] Rambo Vargas MD [address] [facility] [address] [place] [address] 01/19/2025 2:00 PM EDT Clinical Support [facility] [address] [facility], [address]nd [place] [address] 01/19/2025 3:00 PM EDT Appointment [facility] Radiology [address] [place] [phone] 01/22/2025 2:00 PM EDT Appointment [facility] Radiation [address] [facility] [place] [phone] Vasu Scruggs MD [address] [facility] [address] [place] [address] 01/22/2025 3:50 PM EDT Office Visit [facility] [address] [facility]nd [place] [phone] Rosemarie Hidalgo MD [address] [facility] [address] [place] [address] 02/20/2025 11:30 AM EST Office Visit [facility] Otolaryngology [address] [place] [address] Kaleigh Hutton MD [address] [facility] [address] [place] [address] 04/13/2025 3:00 PM EST Office Visit [facility] Medicine Specialties [address], [address] [place] [address] Kye Trujillo MD [address] [facility] [address] [place] [address] documented as of this encounter Procedures Procedure Name Priority Date/Time Associated Diagnosis Comments XR OUTSIDE IMAGES 01/30/2023 1:51 PM EDT documented in this encounter Results * XR OUTSIDE IMAGES (01/30/2023 1:51 PM EDT) Anatomical Region Laterality Modality Radiographic Reanna ging 01/30/2023 1:51 PM EDT us External Provider IMG XR PROCEDURES Final Result documented in this encounter Visit Diagnoses Not on filedocumented in this encounter Care Teams Outboard Motor Inspector Relationship Specialty Start Date End Date Delmi Robledo MD [address] [place] [address] PCP - General 02/09/23 Promise Lopez, RN [facility] Nurse Navigator Hematology and Oncology 05/22/24 Vasu Scruggs MD [id number] [place] [address] Service Attending Radiation Oncology 05/22/24 Sintia Lester LPN VALUE-[place] [address] TCM Nurse 08/20/24 09/19/24 documented as of this encounter
--- OUTSIDE RECORDS SUMMARY | 2024-12-16 21:44 | XMS_ITS | Clinical Summary ---
Author Organization [facility] Address [address] [place] [address] Phone Care Team Providers Care Janitor Cleaner Name Role Phone Ortiz Saleh MD [ ] Conditions or Problems Problem Name Problem Code Onset Date Status Entry Date Provider Comment Standard Description Annotate Coxsackie viral infection 386839803 (SNOMED CT) 11/23 Active 11/23 Ortiz Saleh MD Coxsackie virus disease Phlebitis of left forearm 830551990 (SNOMED CT) 11/18 Active 11/18 Ca Tino Thrombophlebitis of axillary vein Obesity due to excess calories E66.09 (ICD-10-CM ) 10/27 Active 10/27 Ca Tino Other obesity due to excess calories Diarrhea 72114799 (SNOMED CT) 10/27 Active 10/27 Ca Tino Diarrhea Neutrophilic leukemoid reaction D72.823 (ICD-10-CM ) 10/27 Active 10/27 Ca Tino Leukemoid reaction Herpes zoster without mention of complication 1404200 (SNOMED CT) 10/27 Active 10/27 Ca Tino Herpes zoster Fatty liver disease, nonalcoholic K76.0 (ICD-10-CM ) 10/27 Active 10/27 Ca Tino Fatty (change of) liver, not elsewhere classified Hemochromatos is, unspecified 096659296 (SNOMED CT) 10/27 Active 10/27 Ca Tino Hemochromatosis Nicotine dependence, cigarettes F17.210 (ICD-10-CM ) 10/27 Active 10/27 Ca Tino Nicotine dependence, cigarettes, uncomplicated Medications Medication Instructions Start Date Stop Date Generic Name NDC Provider MUPIROCIN 2 % OINT Apply 1 a small amount to affected area once a day 12/23 mupirocin 53916205117 Ortiz Saleh MD METOPROLOL TARTRATE 25 MG TABS by mouth twice a day metoprolol tartrate 14033956237 Miranda Davenport VALTREX 500 MG TABS 2 tablet by mouth three times a day 11/16 valacyclovir 03044038247 Miranda Davenport ASPIRIN EC 81 MG TBEC by mouth once a day 11/16 aspirin 55299125720 Miranda Davenport ATORVASTATIN CALCIUM 40 MG TABS 2 tablet by mouth once a day atorvastatin 28357331396 Miranda Davenport CALCIUM CARB-CHOLECALCI FEROL 500-10 MG-MCG CHEW by mouth twice a day calcium carbonate-vitamin d3 64456326087 Miranda Davenport calcium carbonate-vitam in D3 500 mg-10 mcg (400 unit) tablet by mouth twice a day 11/16 calcium carbonate-vitamin d3 25626074689 Miranda Davenport CARDIZEM CD 120 MG [id number] by mouth once a day diltiazem hcl 59542911112 Miranda Davenport ELIQUIS 5 MG TABS by mouth twice a day apixaban 55381742263 Miranda Davenport MINOCYCLINE HCL 50 MG CAPS 2 capsule by mouth every twelve hours minocycline 31003545938 Miranda Davenport PEPCID 20 MG TABS by mouth once a day famotidine 48527456810 Miranda Davenport ASPIRIN EC 81 MG TBEC by mouth once a day 09/12 aspirin 37067274069 Miranda Davenport FENOFIBRATE 145 MG TABS by mouth once a day fenofibrate nanocrystallized 21751430790 Miranda Davenport METOPROLOL TARTRATE 50 MG TABS by mouth twice a day 11/16 metoprolol tartrate 31644254012 Miranda Davenport MULTI-VITAMINS TABS by mouth once a day multivitamin 76727063486 Miranda Davenport ticagrelor 90 mg tablet by mouth twice a day ticagrelor Miranda Davenport VALTREX 500 MG TABS 2 tablet by mouth three times a day 11/16 valacyclovir 46526020802 Miranda Davenport NICOTINE 14 MG/24HR PT24 as needed nicotine 76752274363 Miranda Davenport Medications Administered No information available. Allergies, Adverse Reactions, Alerts Allergy Name Reaction Description Start Date Severity Statu s Provider PROPOXYPHENE Rash Moderate Active Chhaya Davenport CYCLOBENZAPRINE HCL Itching Moderate Active Miranda Davenport Results Date Name Value Unit Range Flag Description Office Visit: room 12 hfu ORALTOBACUSE Never Tobacco smoking status CIGARET SMKG yes Tobacco smoking status SMOK STATUS Current every da y smoker Tobacco smoking status MEDS REVIEW Done Documenta tion of current medications (procedure) Plan of Care Type Date Detail Pending order Discontinue oral antibiotics Procedures No information available. Vital Signs Date Name Value Unit Description BMI (Body Mass Index) 40.44 kg/m2 Bod y Mass Index (Ratio) Body Temperature 97.5 [degF] temperat ure E&M BP Diastolic 72 mm[Hg] blood pressu re, diastolic BP Systolic 110 mm[Hg] blood pressur e, systolic Heart Rate 70 /min pulse rate Height 71 [in_us] height E&M Respiratory Rate 16 /min respirat ory rate E&M Weight Measured 290.0 [lb_av] weight E& M Weight Measured 290.0 [lb_av] weight E& M Immunizations No information available. Advance Directives Directive Description Start Date NO DIRECTIVES AT THIS TIME
--- OUTSIDE RECORDS SUMMARY | 2024-12-16 21:44 | XMS_ITS | Encounter Summary ---
Author Organization Healthcare Address [address] [phone] Care Team Providers Care Asphalt Mixer Name Role Phone Delmi Robledo MD Primary Care Provider [phone] Promise Lopez RN Unavailable Vasu Felipe MD Unavailable Reason for Referral * Consultation (Urgent) - Authorized Specialty Diagnoses / Procedures Referred By Contac t Referred To Contact Physical Therapy Diagnoses Lymphedema Rambo Vargas MD [address] [address] Phone: tel: fax: Referral ID Status Reason Start Date Expiration Date Visits Requested Visits Authorized [id number] Authorized Consult and Treat 12/08/2024 06/09/2026 1 1 Scheduling Instructions referral to Physical Therapy for lymphedema treatment, close to home [facility] Encounter Details Date Type Department Care Team (Late st Contact Info) Description 12/08/2024 Orders Only [facility] [address] [facility], [address]nd [place] [address] Rambo Vargas MD [address] [address] Lymphedema (Primary Dx) Social History Tobacco Use Types [...] any time in the past 12 m [facility], were you homeless or living in a assisted (including now)? No 08/19/2024 CAGE ASSESSMENT Answer [...] first t mario alberto in the morning (EYE-RECHECKER) to steady your nerves or to get rid of a hangover? 0 05/29/2024 CAGE Questionnaire Score 0 025 Utilities Answer Date Recorded In the past 12 months has e electric, gas, oil, or water company threatened to [...] EDT Office Visit [facility] Voice [address] [phone] Mariza Jenkins, MS CCC-LEGAL OFFICE ADMINISTRATOR 12/29/2024 9:30 AM EDT Office Visit [facility] [address] [phone] Rambo Vargas MD [address] [facility] [address] [place] [address] 01/19/2025 2:00 PM EDT Clinical Support [facility] [address] [phone] 01/19/2025 3:00 PM EDT Appointment [facility] Radiology [address] [place] [address] 01/22/2025 2:00 PM EDT Appointment [facility] Radiation [address] [id number] [place] [address] Vasu Scruggs MD [address] [facility] [address] [place] [address] 01/22/2025 3:50 PM EDT Office Visit [facility] [address] [facility]nd [place] [address] Roesmarie Hidalgo MD [address] [facility] [address] [place] [address] 02/20/2025 11:30 AM EST [facility] [address], [address] [place] [address] Kaleigh Hutton MD [address] [facility] [address] [place] [address] 04/13/2025 3:00 PM EST Office Visit [facility] Medicine Specialties [address], [address] [place] [address] Kye Trujillo MD [address] [facility] [address] [place] [address] Scheduled Referrals Name Type Priority Associated Diagnoses Order Schedule Ambulatory referral to Physical Therapy Outpatient Referral Routine Lymphedema Expected: 12/08/2024 (Approximate), Expires: 06/11/2026 documented as of this encounter Visit Diagnoses Diagnosis Lymphedema- Primary Other noninfectious lymphedema documented in this encounter Additional Health Concerns Assessment Noted Time PHQ-9 Depression Total Score: 0 09/09/19 25 12:35 PM EDT A fall risk assessment has been complete d for the patient 10/27/2024 9:43 AM EDT A Body Mass Index follow-up plan has been documented for the patient 12/08/2024 4:17 PM EDT documented as of this encounter Care Teams Asphalt Mixer Relationship Specialty Start Date End Date Delmi Robledo MD [address] [place] [address] PCP - General 02/09/23 Promise Lopez RN [facility] Nurse Navigator Hematology and Oncology 05/22/24 Vasu Scruggs MD [address] [phone] Service Attending Radiation Oncology 05/22/24 documented as of this encounter
--- OUTSIDE RECORDS SUMMARY | 2024-12-16 21:44 | XMS_ITS | Encounter Summary ---
Author Organization Healthcare Address [address] [place] [address] Care Team Providers Care Home Improvement Installer Name Role Phone Delmi Robledo MD Primary Care Provider [phone] Promise Lopez RN Unavailable Unamalikai Vasu Munguia MD Unavailable Encounter Details Date Type Department Care Team (Late st Contact Info) Description 10/29/2024 Nutrition Pav [facility] Head, Neck & Respiratory [address] [facility], 2nd [place] [address] Radha Coleman, RD Social History Tobacco Use Types Packs/Day Years [...] time in the past 12 m [facility], were you homeless or living in a care home (including now)? No 08/19/2024 CAGE ASSESSMENT Answer [...] first t mario alberto in the morning (EYE-WAREHOUSE ENGINEER) to steady your nerves or to get rid of a hangover? 0 05/29/2024 CAGE Questionnaire Score 0 025 Utilities Answer Date Recorded In the past 12 months has th e electric, gas, oil, or water company threatened to shut off services in your home? No 08/19/2024 Sex and Gender Information Value Date Recorded Sex Assigned at Male 05/02/2024 7:53 AM EST Legal Sex Male 8:27 PM EDT Gender Identity Not on file Sexual Orientation Choose not to disclose 2024 4:38 PM EST documented as of this encounter Miscellaneous Notes * Clinician Note - Radha Coleman, RACHEAL - 10/29/2024 3:03 PM EDT ONCOLOGY NUTRITION NOTE Patient Information Name: Benigno Keita [id number] : 1985 Date of Service: 10/29/2024 Visit Type: Nutrition consult Referral source: [facility] Angel Keita is a 39 y.o. male who was referred to [facility] dietitian for oncology nutrition counseling. 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 Biochemical: Lab Results Component Value Date RBC 3.72 (L) 09/04/2024 WBC 6.93 09/04/2024 HGB 11.6 (L) 09/04/2024 HCT 35.5 (L) 09/04/2024 PLT 164 09/04/2024 Lab Results Component Value Date GLUCOSE 64 (L) 09/04/2024 NA 133 (L) 09/04/2024 K 4.1 09/04/2024 CO2 23 09/04/2024 CL 92 (L) 09/04/2024 CALCIUM 9.4 09/04/2024 BUN 14 09/04/2024 CREATININE 0.87 09/04/2024 Lab Results Component Value Date PHOS 4.1 08/19/2024 MG 1.8 (L) 08/19/2024 Lab Results Component Value Date ALBUMIN 3.8 09/04/2024 Lab Results Component Value Date ALT 11 09/04/2024 AST 25 09/04/2024 ALKPHOS 41 09/04/2024 BILITOT 0.7 09/04/2024 Malnutrition Screening No data recorded (Malnutrition Risk - Low: 0-3, Moderate: 4-8, High: 9+) Nutrition History: Pt established with [facility] RD - multiple encounters since May 2024. Interval History: Chart reviewed. Pt presented for radiation f/u. Visited pt in clinic for constipation referral. Pt is unsure of last BM. States at least 1-2 weeks. Has not taken any laxative or stool softener. Has some OTC versions at home. Pt admits to occasionally having to manually disimpact self. Pt thinksconstipation is r/t to pain medications. He is not drinking much water. Talks about how he prefers bottled spring water. He states he can taste and smell the bleach in the tap water at his residence.States he will purchase more water when he gets more food stamps. Has 2 L of Pepsi which he sips onduring conversation. Pt states he is eating as much as he can. Doing multiple small meals/day, Boost VHC x2 and x2 glasses of whole milk. Pt states he has nausea and sometimes vomiting with PO intake. Likely r/t lack of BM x 1-2 weeks. Nutrition Intervention Encouraged adequate water intake. Encouraged fiber intake. Encouraged to contact medical oncologist for stool softener/bowel regimen. RD contact information was provided and pt was encouraged to contact with additional nutrition-related questions/concerns PRN. documented in this encounter Plan of Treatment Upcoming Encounters Date Type Department Care Team (Late st Contact Info) Description 12/29/2024 8:30 AM EDT Office Visit [facility] Voice [address], [address]nd [place] [address] Mariza Jenkins MS CCC-BUTTER MAKER 12/29/2024 9:30 AM EDT Office Visit Pav [facility] Head, Neck & Respiratory [address] [facility], 2nd [place] [address] Rambo Vargas MD [address] [facility] [address] [place] [address] 01/19/2025 2:00 PM EDT Clinical Support Pav CC Head, Neck & Respiratory [address] [facility], [address]nd [place] [address] 01/19/2025 3:00 PM EDT Appointment PAV G Radiology [address] [place] [address] 01/22/2025 2:00 PM EDT Appointment PAV CC Radiation [address] [facility]. [id number] [place] [address] Vasu Scruggs MD [address] [facility] [address] [place] [address] 01/22/2025 3:50 PM EDT Office Visit [facility] Head, Neck & Respiratory [address] [facility], [address]nd [place] [address] Rosemarie Hidalgo MD 800 [facility] [address] [place] [address] 02/20/2025 11:30 AM EST Office Visit [facility] Otolaryngology [address], [address]rd [place] [address] Kaleigh Hutton MD [address] [facility] [address] [place] [address] 04/13/2025 3:00 PM EST Office Visit [facility] Medicine Specialties [address], [address] [place] [address] Kye Trujilol MD [address] [facility] [address] [place] [address] documented as of this encounter Visit Diagnoses Not on filedocumented in this encounter Additional Health Concerns Assessment Noted Time PHQ-9 Depression Total Score: 0 09/09/19 12:35 PM EDT A fall risk assessment has been complete d for the patient 10/27/2024 9:43 AM EDT A Body Mass Index follow-up plan has been documented for the patient 10/27/2024 10:45 AM EDT documented as of this encounter Care Teams Home Improvement Installer Relationship Specialty Start Date End Date Delmi Robledo MD [address] [place] [address] PCP - General 02/09/23 Promise Lopez RN [facility] Nurse Navigator Hematology and Oncology 05/22/24 Vasu Scruggs MD [address] [place], [place] [address] [place] [address] Service Attending Radiation Oncology 05/22/24 documented as of this encounter
--- OUTSIDE RECORDS SUMMARY | 2024-12-16 21:44 | XMS_ITS | Encounter Summary ---
Author Organization Healthcare Address [address] [place] [address] Care Team Providers Care Thermal Cutter Hand Name Role Phone Delmi Robledo MD Primary Care Provider Promise Lopez RN Unavailable Vasu Felipe MD Unavailable Encounter Details Date Type Department Care Team ([facility] st Contact Info) Description 11/17/2024 Telephone Pav CC Head, Neck & Respiratory [address] [facility], 2nd [place] [address] Ann Mcginnis Social History Tobacco Use Types Packs/Day Years [...] any time in the past 12 m [facility], were you homeless or living in a custodial (including now)? No 08/19/2024 CAGE ASSESSMENT Answer [...] first t mario alberto in the morning (EYE-MONORAIL CAR OPERATOR) to steady your nerves or to [...] EDT Office Visit P[facility] CC Voice [address] [facility], [address]nd [place] [address] Mariza Jenkins, MS CCC-PACKAGING DESIGN ENGINEER 12/29/2024 9:30 AM EDT Office Visit [facility] Head, Neck & Respiratory [address] [place] [address] Rambo Vargas MD [address] [facility] [address] [place] [address] 01/19/2025 2:00 PM EDT Clinical Support Pav CC Head, Neck & Respiratory [address] [facility], 2nd [place] [address] 01/19/2025 3:00 PM EDT Appointment PAV G Radiology [address] [place] [address] 01/22/2025 2:00 PM EDT Appointment P[facility] CC Radiation [address] [facility]. [address] [place] [address] Vasu Scruggs MD 800 [facility] [address] [place] [address] 01/22/2025 3:50 PM EDT Office Visit [facility] Head, Neck & Respiratory [address] , [address] [place] [address] Rosemarie Hidalgo MD [address] [facility] [address] [place] [address] 02/20/2025 11:30 AM EST Office Visit [facility] Otol[facility]ology [address], [address]rd [place] [address] Kaleigh Hutton MD [address] [place] [address] 04/13/2025 3:00 PM EST Office Visit [facility] Medicine Special[facility] [address], [address] [place] [address] Kye Trujillo MD [address] [place] [address] documented as of this encounter [...] documented as of this encounter Care Teams Thermal Cutter Hand Relationship Specialty Start Date End Date Delmi Robledo MD [address] [place] [address] PCP - General 02/09/23 Promise Lopez RN [facility] Nurse Navigator Hematology and Oncology 05/22/24 Vasu Scruggs MD [address] [place] [address] Service Attending Radiation Oncology 05/22/24 documented as of this encounter
--- OUTSIDE RECORDS SUMMARY | 2024-12-16 21:44 | XMS_ITS | Encounter Summary ---
Author Organization Healthcare Address [address] [place] [address] Care Team Providers Care Global Program Manager Name Role Phone Delmi Robledo MD Primary Care Provider [phone] Promise Lopez RN Unavailable Unamalikai Vasu Munguia MD Unavailable Encounter Details Date Type Department Care Team (Late st Contact Info) Description 11/10/2024 Telephone Psych Oncology [address] [place] [address] Radha Coleman, RACHEAL Social History Tobacco Use Types Packs/Day Years [...] money to buy more. Never true 08/20/19 25 Within the past 12 months, t he [...] any time in the past 12 m [facility], were you homeless or living in a half-way (including now)? No 08/19/2024 CAGE ASSESSMENT Answer [...] first t mario alberto in the morning (EYE-SALES PROGRAM MANAGER) to steady your nerves or to get [...] as of this encounter Miscellaneous Notes * Telephone Encounter - Radha Coleman RD - 11/10/2024 2:13 PM EDT Reason for call: follow-up Call details: Called pt for f/u. He reports dysphagia. 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 Appt with [facility] E[facility] 11/17 for evaluation. Talks about how he is taking longer to eat d/t difficulty drinking and has to take multiple sips of pop to get food down. Pt stateshe is getting tired of the Boost, and wish he had a savory flavor, such as hamburger. Pt is now taking stool softeners and laxatives and states issues with constipation have resolved. Encouraged to contact as needed for nutrition-related questions and concerns. RD remains available PRN. documented in this encounter Plan of Treatment Upcoming Encounters Date Type Department Care Team (Late st Contact Info) Description 12/29/2024 8:30 AM EDT Office Visit PAV CC Voice [address] [facility], 2nd [place] [address] Mariza Jenkins MS CCC-COGNOS LEAD 12/29/2024 9:30 AM EDT Office Visit Pav [facility] Head, Neck & Respiratory [address] [facility], 2nd [place] [address] Rambo Vargas MD [address] [place] [address] 01/19/2025 2:00 PM EDT Clinical Support Pav CC Head, Neck & Respiratory [address] [facility], [address]nd [place] [address] 01/19/2025 3:00 PM EDT Appointment PAV G Radiology [address] [place] [address] 01/22/2025 2:00 PM EDT Appointment PAV CC Radiation [address] [facility]. [address] [place] [address] Vasu Scruggs MD [address] [facility] [address] [place] [address] 01/22/2025 3:50 PM EDT Office Visit [facility] Head, Neck & Respiratory [address] [facility], [address]nd [place] [address] Rosemarie Hidalgo MD [address] [place] [address] [place] [address] 02/20/2025 11:30 AM EST Office Visit [facility] Otol[facility]ology [address], [address]rd [place] [address] Kaleigh Hutton MD [address] [place] [address] 04/13/2025 3:00 PM EST Office Visit [facility] Medicine Specialties [address], [address] [place] [address] Kye Trujillo MD [address] [facility] [address] [place] [address] documented as of this encounter [...] documented as of this encounter Care Teams Global Program Manager Relationship Specialty Start Date End Date Delmi Robledo MD [address] [place], [place] [address] [address] PCP - General 11/10/23 Promise Lopez RN [facility] Nurse Navigator Hematology and Oncology 05/22/24 Vasu Scruggs MD [address] [address] Service Attending Radiation Oncology 05/22/24 documented as of this encounter
--- OUTSIDE RECORDS SUMMARY | 2024-12-16 21:44 | XMS_ITS | Encounter Summary ---
Author Organization Healthcare Address [address] [place] [id number] Care Team Providers Care Electric Power Line Repairer Name Role Phone Delmi Robledo MD Primary Care Provider [phone] Promise Lopez RN Unavailable Vasu Felipe MD Unavailable Reason for Visit * Reason Onset Date Comments Med Refill 12/15/2024 Encounter Details Date Type Department Care Team (Late st Contact Info) Description 12/15/2024 Refill Pav CC Head, Neck & Respiratory [address] [facility], 2nd [place] [address] Promise Lopez, RN [facility]-HEAD N[facility]K [facility] RESPIRATORY CLINIC Social History Tobacco Use Types Packs/Day Years [...] any time in the past 12 m [facility], were you homeless or living in a correction (including now)? No 08/19/2024 CAGE ASSESSMENT Answer [...] first t mario alberto in the morning (EYE-TAX ASSESSOR) to steady your nerves or to get rid of a hangover? 0 05/29/2024 CAGE Questionnaire Score 0 025 Utilities Answer Date Recorded In the past 12 months has th e [employer], gas, oil, or water company threatened to [...] EDT Office Visit PAV CC Voice [address] [facility], 2nd [place] [address] Mariza Jenkins, MS CCC-SCHOOL OPERATIONS MANAGER 12/29/2024 9:30 AM EDT Office Visit Pav [facility] Head, Neck & Respiratory [address] [facility], 2nd [place] [address] Rambo Vargas MD [address] [facility] [address] [place] [address] 01/19/2025 2:00 PM EDT Clinical Support Pav CC Head, Neck & Respiratory [address] [facility], 2nd [place] [address] 01/19/2025 3:00 PM EDT Appointment PAV G Radiology [address] [place] [address] 01/22/2025 2:00 PM EDT Appointment PAV CC Radiation [address] [facility]. [address] [place] [address] Vasu Scruggs MD [address] [facility] [address] [place] [address] 01/22/2025 3:50 PM EDT Office Visit [facility] Head, Neck & Respiratory [address] [facility], 2nd [place] [address] Rosemarie Hidalgo MD [address] [place] [address] [place] [address] 02/20/2025 11:30 AM EST Office Visit [facility] Ot[facility]ology [address], 3rd [place] [address] Kaleigh Hutton MD [address] [place] [address] 04/13/2025 3:00 PM EST Office Visit [facility] Medicine Specialties [address], [address] [place] [address] Kye Trujillo MD [address] [place] [address] documented as of this encounter [...] documented as of this encounter Care Teams Electric Power Line Repairer Relationship Specialty Start Date End Date Delmi Robledo MD [address] [place] [address] PCP - General 02/09/23 Promise Lopez RN [facility] Nurse Navigator Hematology and Oncology 05/22/24 Vasu Scruggs MD [address] [place] [address] Service Attending Radiation Oncology 05/22/24 documented as of this encounter
--- OUTSIDE RECORDS SUMMARY | 2024-12-16 21:44 | XMS_ITS | Encounter Summary ---
Author Organization Healthcare Address [address] [place] [address] Care Team Providers Care Hospitality Ambassador Name Role Phone Delmi Robledo MD Primary Care Provider [phone] Promise Lopez RN Unavailable Vasu Felipe MD Unavailable Encounter Details Date Type Department Care Team ([facility] st Contact Info) Description 11/18/2024 Telephone Pav CC Head, Neck & Respiratory [address] [facility], 2nd [place] [address] Ann Mcginnis Social History Tobacco Use Types [...] any time in the past 12 m [facility], were you homeless or [...] first t mario alberto in the morning (EYE-DEBURRING MACHINE OPERATOR) to steady your nerves or to [...] Office Visit PAV CC Voice [address] [facility], 2nd [place] [address] Mariza Jenkins, MS CCC-LIGHTER 12/29/2024 9:30 AM EDT Office Visit Pav CC Head, Neck & Respiratory [address] [place] [address] Rambo Vargas MD [address] [facility] [address] [place] [address] 01/19/2025 2:00 PM EDT Clinical Support Pav CC Head, Neck & Respiratory [address] [facility], 2nd [place] [address] 01/19/2025 3:00 PM EDT Appointment PAV G Radiology [address] [place] [address] 01/22/2025 2:00 PM EDT Appointment PAV CC Radiation [address] [facility]. [address] [place] [address] Vasu Scruggs MD 800 [facility] [address] [place] [address] 01/22/2025 3:50 PM EDT Office Visit [facility] CC Head, Neck & Respiratory [address] , [address]nd [place] [address] Rosemarie Hidalgo MD [address] [facility] [address] [place] [address] 02/20/2025 11:30 AM EST Office Visit [facility] Ot[facility] [address], 3rd [place] [address] Kaleigh Hutton MD [address] [place] [address] 04/13/2025 3:00 PM EST Office Visit [facility] Medicine Specialties [address], [address] [place] [address] Kye Trujillo MD [address] [place] [address] documented as of this encounter [...] documented as of this encounter Care Teams Hospitality Ambassador Relationship Specialty Start Date End Date Delmi Robledo MD [address] [place] [address] PCP - General 02/09/23 Promise Lopez RN [facility] Nurse Navigator Hematology and Oncology 05/22/24 Vasu Scruggs MD [address] [place] [address] Service Attending Radiation Oncology 05/22/24 documented as of this encounter
--- OUTSIDE RECORDS SUMMARY | 2024-12-16 21:44 | XMS_ITS | Encounter Summary ---
Author Organization Healthcare Address [address] [place] [id number] Care Team Providers Care Office Communication Professor Name Role Phone Delmi Robledo MD Primary Care Provider [phone] Promise Lopez RN Unavailable Vasu Felipe MD Unavailable Encounter Details Date Type Department Care Team (Late st Contact Info) Description 10/29/2024 Refill Pav CC Head, Neck & Respiratory [address] [place] [address] Daniel Dotson, CEO AND FOUNDER [address] [facility] [address] [place] [address] Social History Tobacco Use Types Packs/Day Years [...] any time in the past 12 m [facility], were you homeless or living in [...] first t mario alberto in the morning (EYE-GLASS CLEANING MACHINE TENDER) to steady your nerves or to get [...] EDT Office Visit PAV CC Voice [address] [facility], [address]nd [place] [address] Mariza Jenkins, MS CCC-INSURANCE OFFICE MANAGER 12/29/2024 9:30 AM EDT Office Visit Pav [facility] Head, Neck & Respiratory [address] [facility], 2nd [place] [address] Rambo Vargas MD [address] [facility] [address] [place] [address] 01/19/2025 2:00 PM EDT Clinical Support Pav CC Head, Neck & Respiratory [address] [facility], [address]nd [place] [address] 01/19/2025 3:00 PM EDT Appointment PAV G Radiology [address] [place] [address] 01/22/2025 2:00 PM EDT Appointment PAV CC Radiation [address] [facility]. [address] [place] [address] Vasu Scruggs MD 800 [facility] [address] [place] [address] 01/22/2025 3:50 PM EDT Office Visit [facility] Head, Neck & Respiratory [address] [facility], 2nd [place] [address] Rosemarie Hidalgo MD [address] [facility] [address] [place] [address] 02/20/2025 11:30 AM EST Office Visit [facility] Otolaryngology [address], 3rd [place] [address] Kaleigh Hutton MD [address] [facility] [address] [place] [address] 04/13/2025 3:00 PM EST Office Visit [facility] Medicine Specialties [address], [address] [place] [address] Kye Trujillo MD [address] [facility] [address] [place] [address] documented as of this encounter [...] documented as of this encounter Care Teams Office Communication Professor Relationship Specialty Start Date End Date Delmi Robledo MD [address] [place] [address] PCP - General 02/09/23 Promise Lopez RN [facility] Nurse Navigator Hematology and Oncology 05/22/24 Vasu Scruggs MD [address] [place] [address] Service Attending Radiation Oncology 05/22/24 documented as of this encounter
--- OUTSIDE RECORDS SUMMARY | 2024-12-16 21:44 | XMS_ITS | Patient Health Record ---
Author Organization [facility] Address [address] [place] [address] Care Team Providers Care Foot Doctor Name Role Phone Andrés Goldman II Unavailable [phone] Elissa Parrish Unavailable Unavaila ble Carlos Ogden Unavailable [phone] Allergies Allergen (clinical drug ingredient) Drug/Non Drug Allergy documented on EMR Reaction Allergy Type Onset Date Status Flexeril hives Drug Allergy Active Results Component Value Reference Range Notes Urine Test ANALYZER Reviewed date:04/09/2024 02:29:08 PM Interpretation:+HYD+OPI Performing Lab: Notes/Report: +HYD+OPI Heroin Metabolite (6AM) NEG Amphetamine (AMP) NEG Benzodiazepine (BERNIE) NEG Buprenorphine NEG Cocaine (RAJ) NEG Hydrocodone (HYD) POS Methadone (MTD) NEG Opiate (OPI) POS Oxycodone (OXY) NEG Urine Test ANALYZER Reviewed date:12/12/2024 02:02:17 PM Interpretation:+OPI +OXY Performing Lab: Notes/Report: +OPI +OXY Heroin Metabolite (6AM) NEG Amphetamine (AMP) NEG Benzodiazepine (BERNIE) NEG Cocaine (RAJ) NEG Methadone (MTD) NEG Opiate (OPI) POS Oxycodone (OXY) POS Urine Test LCMS Definitive ( Not yet reviewed by provider) Interpretation: Performing Lab: Notes/Report: Urine Test LCMS Definitive Reviewed date:09/30/2024 07:24:40 AM Interpretation: Performing Lab: Notes/Report: Urine Test ANALYZER Reviewed date:02/08/2024 02:26:17 PM Interpretation:+HYD+OPI Performing Lab: Notes/Report: +HYD+OPI Heroin Metabolite (6AM) NEG Amphetamine (AMP) NEG Benzodiazepine (BERNIE) NEG Buprenorphine NEG Cocaine (RAJ) NEG Hydrocodone (HYD) POS Methadone (MTD) NEG Opiate (OPI) POS Oxycodone (OXY) NEG Urine Test ANALYZER Reviewed date:06/02/2024 12:05:34 PM Interpretation:+HYD +OPI +OXY Performing Lab: Notes/Report: +HYD +OPI +OXY Heroin Metabolite (6AM) NEG Amphetamine (AMP) NEG Benzodiazepine (BERNIE) NEG Buprenorphine NEG Cocaine (RAJ) NEG Hydrocodone (HYD) POS Methadone (MTD) NEG Opiate (OPI) POS Oxycodone (OXY) POS Urine Test ANALYZER Reviewed date:07/30/2024 02:24:50 PM Interpretation:+OPI +OXY +HYD Performing Lab: Notes/Report: +OPI +OXY +HYD Heroin Metabolite (6AM) NEG Amphetamine (AMP) NEG Benzodiazepine (BERNIE) NEG Buprenorphine NEG Cocaine (RAJ) NEG Hydrocodone (HYD) POS Methadone (MTD) NEG Opiate (OPI) POS Oxycodone (OXY) POS Urine Test ANALYZER Reviewed date:09/22/2024 10:32:00 AM Interpretation:+OPI +HYD Performing Lab: Notes/Report: +OPI +HYD Heroin Metabolite (6AM) NEG Amphetamine (AMP) NEG Benzodiazepine (BERNIE) NEG Buprenorphine NEG Cocaine (RAJ) NEG Hydrocodone (HYD) POS Methadone (MTD) NEG Opiate (OPI) POS Oxycodone (OXY) NEG Urine Test ANALYZER Reviewed date:10/17/2024 12:54:54 PM Interpretation:+OPI +OXY +HYD Performing Lab: Notes/Report: +OPI +OXY +HYD Heroin Metabolite (6AM) NEG Amphetamine (AMP) NEG Benzodiazepine (BERNIE) NEG Buprenorphine NEG Cocaine (RAJ) NEG Hydrocodone (HYD) POS Methadone (MTD) NEG Opiate (OPI) POS Oxycodone (OXY) POS Urine Test LCMS Definitive Reviewed date:06/20/2024 07:33:08 AM Interpretation:+gbp+hyd 2/3 Performing Lab: Notes/Report: +gbp+hyd 2/3 Reason For Referral Reason Faxed 02/12 - Referr al to Neurosurgery for Degenerative disc disease Diagnosis 1 Other spondylosis wi th radiculopathy, lumbar region (M47.26) Diagnosis 2 Other spondylosis, l umbar region (M47.926) Referral Organization [facility] Referring Provider First Name Andrés Referring Provider Last Name Jones Referring Provider Speciality Pain Manag ement Referred Organization [facility] rosurgery Referred Address [address],[place], [place],[address],[place] Referred Provider Specialty Neurological Surgery General Ezequiel Bob(PARTS COORDINATOR-DOUGLAS)Ac 02/08/2024 11:12:51 AM > Patients phone is disconnected at this time. However, he can be reached through email if that is possible. [email or web address], Delfino (Nadja)Mary Anne 02/13/2024 8:15:56 AM > Please contact the patient to schedule, but currently he does not have a phone. Is it possible to schedule via his email? If so, this is his email address. [email or web address] If this can be done, please fax confirmation of the scheduled appt to [phone]. If the appt cannot be scheduled this way, please contact our office at [phone]. Thank You , Delfino (Nadja)Mary Anne 02/13/2024 8:31:26 AM > Referral faxed to [facility] Nakita Sinha Jamalyn (PADept) 02/21/2024 12:24:42 PM > Called [facility] and s/w Susie who stated they attempted to call the pt on 01/19/24, however were unable to reach him. I advised this new referral states he currently does not have a working number and to attempt to email him, however Susie stated she didn't think they were able to do that. Created TE and assigned to the [facility] nurses and closing referral. Referral Priority Routine Reason Schd'ld 05/02/24 1:00 p- Referral to Neurosurgery for degenerative disc disease Diagnosis 1 Other spondylosis wi th radiculopathy, lumbar region (M47.26) Diagnosis 2 Other spondylosis, l umbar region (M47.896) Referral Organization [facility] Referring Provider First Name Andrés Referring Provider Last Name Jones Referring Provider Speciality Pain Manag ement Referred Organization [facility] rosurgery Referred Address [address],[place], [place],[address],[place] Referred Provider Specialty Neurological Surgery General Notes Delfino (FRANCESCO-Evkia),Pat ty 04/14/2024 12:09:28 PM > Please contact the patient to schedule and fax confirmation of the scheduled appt to [phone]. If you need any additional information, please contact our office at [phone]. Thank You, Delfino (Nadja),Mary Anne 04/14/2024 12:43:03 PM > Faxed to Delfino Rayo (FRANCESCO-Evv),Mary Anne 04/16/2024 8:14:17 AM > Appt confirmation for 05/02/24 @ 1:00 PM w/Delfino Rayo (FRANCESCO-Evkia),Mary Anne 05/28/2024 2:11:33 PM > Patient has an upcoming appt on 06/02 and I added to the note to ask patient if he was able to keep this appt with Ish. He was diagnosed with cancer of the pharynx and has had a lot of appts for that so not sure. If he did, will request note., Mei Palacios (Billing) 06/18/2024 10:13:09 AM > Clld provider's office and spoke w/Khloe. Patient did not keep appt. Asked if pt rescheduled. She stated that the pt has not rescheduled appt. Philip Stefanie (Billing) 06/19/2024 7:44:24 AM > Added note to cheif complaint for next appointment. Addressing referral Referral Priority Routine Referral Appointment Date 05/02/2024 Medications Medication SIG (Take, Route, Frequency, Duration) Notes Start Date End Date Status pregabalin 100 mg 1 cap(s) orally 3 times a day; Duration: 28 days DO NOT FILL SOONER THAN 28 DAYS, (OK TO FILL EARLY, ONLY IF CLOSED) 12/12/2024 Active OxyCODONE Hydrochloride 5 mg 1 tab(s) orally every 6 hours; Duration: 28 days October 2024 RX DO NOT FILL SOONER THAN 28 DAYS, (OK TO FILL EARLY, ONLY IF CLOSED) 12/12/2024 Active Metoprolol Tartrate 25 mg ; Duration: 90 Active OxyCODONE Hydrochloride 10 mg 1 tab(s) orally every 6 hours; Duration: 28 days December 2024 RX DO NOT FILL SOONER THAN 28 DAYS, (OK TO FILL EARLY, ONLY IF CLOSED) 12/12/2024 Active baclofen 10 mg 1 tab(s) orally 3 times a day; Duration: 30 days December 2024 RX DO NOT FILL SOONER THAN 28 DAYS, (OK TO FILL EARLY, ONLY IF CLOSED) Active verapamil 120 mg/24 hours 1 cap(s) orally once a day; Duration: 30 day(s) 06/06/2022 Active Eliquis 5 mg as directed orally 2 times a day; Duration: 30 day(s) Active Problems Problem Type SNOMED Code ICD Code Onset Dates Problem Status W/U Status Risk Notes Problem Lumbosacral spondylosis without myelopathy (10274919) Other spondylosis with radiculopathy, lumbar region (M47.26) Active confirmed Problem Lumbosacral spondylosis without myelopathy (49525760) Other spondylosis, lumbar region (M47.896) Active confirmed Problem Lumbar radiculopathy (457050103) Radiculopathy, lumbar region (M54.16) Active confirmed Problem Cervicalgia (39541478) Cervicalgia (M54.2) Active confirmed Problem Long-term current use of drug therapy (391705168) Other adjunct faculty for medical terminology (current) drug therapy (Z79.899) Active confirmed Vital Signs Heart Rate 86 /min 12/12/2024 Blood pressure diastolic 70 mm Hg 12/12/2024 Height 71 in 12/12/2024 Blood pressure systolic 98 mm Hg 12/12/2024 Weight 190 lbs 12/12/2024 BMI 26.5 kg/m2 12/12/2024 Encounters Encounter Location Date Provider Diagnosis [facility] [address] [place] [address] 02/08/2024 Andrés Goldman Other penitentiary (current) drug therapy Z79.899 ; Other spondylosis, lumbar region M47.896 ; Radiculopathy, lumbar region M54.16 and Cervicalgia M54.2 [facility] [address] [place] [address] 04/09/2024 Andrés Goldman Other adjunct faculty for medical terminology (current) drug therapy Z79.899 ; Other spondylosis, lumbar region M47.896 ; Radiculopathy, lumbar region M54.16 and Cervicalgia M54.2 [facility] [address] [place] [address] 06/02/2024 Andrés Goldman Other adjunct faculty for medical terminology (current) drug therapy Z79.899 ; Other spondylosis, lumbar region M47.896 ; Radiculopathy, lumbar region M54.16 and Cervicalgia M54.2 [facility] [address] [place] [address] 07/30/2024 Andrés Goldman Other penitentiary (current) drug therapy Z79.899 ; Other spondylosis, lumbar region M47.896 ; Radiculopathy, lumbar region M54.16 and Cervicalgia M54.2 [facility] [address] [place] [address] 09/22/2024 Carlos Ogden Other penitentiary (current) drug therapy Z79.899 ; Other spondylosis, lumbar region M47.896 ; Radiculopathy, lumbar region M54.16 and Cervicalgia M54.2 [facility] [address] [place] [address] 10/17/2024 Carlos Ogden Other adjunct faculty for medical terminology (current) drug therapy Z79.899 ; Other spondylosis, lumbar region M47.896 ; Radiculopathy, lumbar region M54.16 and Cervicalgia M54.2 [facility] [address] [place] [address] 12/12/2024 Andrés Goldman Other penitentiary (current) drug therapy Z79.899 ; Other spondylosis, lumbar region M47.896 ; Radiculopathy, lumbar region M54.16 and Cervicalgia M54.2 [facility] [address] [place] [address] 01/15/2024 Andrés Goldman [facility] [address] [place] [address] 02/08/2024 Andrés Goldman Other penitentiary (current) drug therapy Z79.899 [facility] [address] [place] [address] 02/11/2024 Andrés Goldman [facility] [address] [place] [address] 02/11/2024 Andrés Goldman [facility] [address] [place] [address] 02/21/2024 Andrés Goldman [facility] [address] [place] [address] 04/09/2024 Andrés Goldman Other adjunct faculty for medical terminology (current) drug therapy Z79.899 [facility] [address] [place] [address] 04/09/2024 Andrés Goldman [facility] [address] [place] [address] 04/09/2024 Andrés Goldman Other penitentiary (current) drug therapy Z79.899 [facility] [address] [place] [address] 04/10/2024 Andrés Goldman [facility] [address] [place] [address] 04/10/2024 Andrés Goldman [facility] [address] [place] [address] 05/07/2024 Andrés Goldman Other penitentiary (current) drug therapy Z79.899 [facility] [address] [place] [address] 06/02/2024 Andrés Goldman Other adjunct faculty for medical terminology (current) drug therapy Z79.899 [facility] [address] [place] [address] 06/09/2024 Andrés Goldman [facility] [address] [place] [address] 07/30/2024 Andrés Goldman Other penitentiary (current) drug therapy Z79.899 [facility] [address] [place] [address] 08/20/2024 Andrés Goldman Other adjunct faculty for medical terminology (current) drug therapy Z79.899 [facility] [address] [place] [address] 2024 Andrés Goldman [facility] [address] [place] [address] 11/14/2024 Carlos Ogden Other adjunct faculty for medical terminology (current) drug therapy Z79.899 [facility] [address] [place] [address] 12/12/2024 Andrés Goldman Other adjunct faculty for medical terminology (current) drug therapy Z79.899 Assessments Encounter Date Diagnosis (ICD Code) Assessment Notes Treatment Notes Treatment Clinical Notes Section Notes 02/08/2024 Other spondylosis, lumbar region (ICD-10 - M47.896) 02/08/2024 Mr. Keita returns today for an office visit and medication refill. He still has c/o pain in his bilateral feet. He states that he has burning sensation in his feet along with sharp, shooting pain. Reports shooting pain that starts from the [...] equina compression. Mild bilateral L4-5 foraminal stenosis. Continue norco 10mg TID, gabapentin 300mg at bedtime, along with baclofen 10mg TID as needed Most recent BART and LISY reviewed. Reviewed Lumbar MRI, refer to neurosurgery. He is to follow up in 2 months. Refill his medications on appropriate refill date. 02/08/2024 Other adjunct faculty for medical terminology (current) drug therapy (ICD-10 - Z79.899) 02/08/2024 1. Refill Baclofen 10mg TID prn 2. refill Ephrata 10/325mg TID 3. Follow up in 2 months 4. Refill Gabapentin 300mg HS 5. Referal to podiatry-wero grayson 6. Reviewed MRI Lumbar spine, referral to NS 02/08/2024 Mr. Keita returns today for an office visit and medication refill. He still has c/o pain in his bilateral feet. He states that he has burning sensation in his feet along with sharp, shooting pain. Reports shooting pain that starts from the [...] equina compression. Mild bilateral L4-5 foraminal stenosis. Continue norco 10mg TID, gabapentin 300mg at bedtime, along with baclofen 10mg TID as needed Most recent BART and LISY reviewed. Reviewed Lumbar MRI, refer to neurosurgery. He is to follow up in 2 months. Refill his medications on appropriate refill date. 02/08/2024 Other penitentiary (current) drug therapy (ICD-10 - Z79.899) 04/09/2024 Other spondylosis, lumbar region (ICD-10 - M47.896) 04/09/2024 The patient presents to the [facility] office in [place], [place] for an audiovisual-telem edicine visit via [employer].The patient was evaluated by the medical affairs director and a urine drug screen was obtained as well as vital signs. Portions of the physical examination were assisted by the medical affairs director as instructed during the audiovisual telemedicine visit. Patient consented to telemed visit, provider located at [facility] in [place], [place]. Reports shooting pain that starts from the [...] of his neck and collar bone. He is scheduled with oncology on Apr.23. He reports that his pain has been somewhat out of control the last couple of months. He reports having difficulty sleeping at night secondary to the shoulder and neck pain. Will increase norco 10mg from TID to QID. Continue gabapentin 300mg at bedtime, along with baclofen 10mg TID as needed. Most recent BART and UDS reviewed. He is to follow up in 2 months. Refill his medications on appropriate refill date. 04/09/2024 Other penitentiary (current) drug therapy (ICD-10 - Z79.899) 04/09/2024 1. Refill Baclofen 10mg TID prn 2. Increase Ephrata 10/325mg from TID to QID #112 3. Follow up in 2 months 4. Refill Gabapentin 300mg HS 5. Reviewed MRI Lumbar spine, referral to NS-pending 6. F/u with oncology as scheduled 04/09/2024 The patient presents to the [facility] office in [place], [place] for an audiovisual-telem edicine visit via [employer].The patient was evaluated by the medical affairs director and a urine drug screen was obtained as well as vital signs. Portions of the physical examination were assisted by the medical affairs director as instructed during the audiovisual telemedicine visit. Patient consented to telemed visit, provider located at [facility] in [place], [place]. Reports shooting pain that starts from the [...] of his neck and collar bone. He is scheduled with oncology on Apr.23. He reports that his pain has been somewhat out of control the last couple of months. He reports having difficulty sleeping at night secondary to the shoulder and neck pain. Will increase norco 10mg from TID to QID. Continue gabapentin 300mg at bedtime, along with baclofen 10mg TID as needed. Most recent BART and UDS reviewed. He is to follow up in 2 months. Refill his medications on appropriate refill date. 04/09/2024 Other adjunct faculty for medical terminology (current) drug therapy (ICD-10 - Z79.899) 04/09/2024 Other penitentiary (current) drug therapy (ICD-10 - Z79.899) 05/07/2024 Other penitentiary (current) drug therapy (ICD-10 - Z79.899) 06/02/2024 Other spondylosis, lumbar region (ICD-10 - M47.896) 04/09/2024 The patient presents to the [facility] office in [place], [place] for an audiovisual-telem edicine visit via [employer].The patient was evaluated by the medical affairs director and a urine drug screen was obtained as well as vital signs. Portions of the physical examination were assisted by the medical affairs director as instructed during the audiovisual telemedicine visit. Patient consented to telemed visit, provider located at [facility] in [place], [place]. Reports shooting pain that starts from the [...] of his neck and collar bone. He is scheduled with oncology on Apr.23. He reports that his pain has been somewhat out of control the last couple of months. He reports having difficulty sleeping at night secondary to the shoulder and neck pain. 06/02/2024 Patient here today for follow up and medication refills. Continues to report pain in mid-lower back. He reports his pain level a 7. Denies any real changes since his last office visit. Patient had gastrostomy tube placed last Sunday from dysphagia from the progressing neck and throat cancer. He was prescribed Oxycodone during admission. Right side of patient neck is enlarged and red. Patient reports burning tingling pain at night and continues to struggle to sleep. Will adjust his Gabapentin to 400mg at night. Medication palafox Ephrata 10mg QID. Continue gabapentin 400mg at bedtime, along with baclofen 10mg TID as needed. Most recent BART and UDS reviewed. He is to follow up in 2 months. 06/02/2024 Other penitentiary (current) drug therapy (ICD-10 - Z79.899) 06/02/2024 1. Refill Baclofen 10mg TID prn 2. Refill Ephrata 10/325mg QID #112 3. Follow up in 2 months 4. Refill Gabapentin 400mg HS 5. F/u with oncology as scheduled 04/09/2024 The patient presents to the [facility] office in [place], [place] for an audiovisual-telem edicine visit via [employer].The patient was evaluated by the medical affairs director and a urine drug screen was obtained as well as vital signs. Portions of the physical examination were assisted by the medical affairs director as instructed during the audiovisual telemedicine visit. Patient consented to telemed visit, provider located at [facility] in [place], [place]. Reports shooting pain that starts from the [...] of his neck and collar bone. He is scheduled with oncology on Apr.23. He reports that his pain has been somewhat out of control the last couple of months. He reports having difficulty sleeping at night secondary to the shoulder and neck pain. 06/02/2024 Patient here today for follow up and medication refills. Continues to report pain in mid-lower back. He reports his pain level a 7. Denies any real changes since his last office visit. Patient had gastrostomy tube placed last Sunday from dysphagia from the progressing neck and throat cancer. He was prescribed Oxycodone during admission. Right side of patient neck is enlarged and red. Patient reports burning tingling pain at night and continues to struggle to sleep. Will adjust his Gabapentin to 400mg at night. Medication palafox Ephr[place] 10mg QID. Continue gabapentin 400mg at bedtime, along with baclofen 10mg TID as needed. Most recent BART and UDS reviewed. He is to follow up in 2 months. 06/02/2024 Other penitentiary (current) drug therapy (ICD-10 - Z79.899) 07/30/2024 Other spondylosis, lumbar region (ICD-10 - M47.896) 07/30/2024 Benigno presents today for follow up and [...] treatment and has 6 more radiation treatments. Medication palafox Ephr[place] 10mg QID. Continue gabapentin 400mg at bedtime, along with baclofen 10mg TID as needed. Most recent BART and UDS reviewed. He is to follow up in 2 months. 07/30/2024 Other penitentiary (current) drug therapy (ICD-10 - Z79.899) 07/30/2024 1. Refill Baclofen 10mg TID prn 2. Refill Ephrata 10/325mg QID #112 3. Follow up in 2 months 4. Refill Gabapentin 400mg HS 5. F/u with oncology as scheduled 07/30/2024 Benigno presents today for follow up and [...] treatment and has 6 more radiation treatments. Medication palafox [place] 10mg QID. Continue gabapentin 400mg at bedtime, along with baclofen 10mg TID as needed. Most recent BART and UDS reviewed. He is to follow up in 2 months. 07/30/2024 Other penitentiary (current) drug therapy (ICD-10 - Z79.899) 08/20/2024 Other adjunct faculty for medical terminology (current) drug therapy (ICD-10 - Z79.899) 09/22/2024 Other spondylosis, lumbar region (ICD-10 - M47.896) September 22, 2024: The patient presents to the [facility] office in [facility] for an audiovisual-telem edicine visit. The patient was evaluated by the medical affairs director and a urine drug screen was obtained as well as vital signs. Portions of the physical examination were assisted by the medical affairs director during the audiovisual-telem edicine visit Review of [...] treatment and has 6 more radiation treatments. September 22, 2024: Mr. Keita is a 39-year-old patient with a recent diagnosis of head neck cancer. He has been followed by oncology and has been given as many as 12 oxycodone 10 mg tablets daily in addition to fentanyl 50 mcg. The patient has undergone chemotherapy and radiation therapy but no surgery. He says that he has a feeding tube and continues to have dysphagia. His pain today is 7/10 and mostly located in the lower back in the middle back as well. He started having back pain at the age of 19 secondary to a work injury and a herniated disc. He has had no back surgery. I reviewed the urine drug screen and the [facility] report. The patient is not an interventional treatment candidate at this time. Review of the Bart shows that he has been on a very high dose of opioid therapy and I informed the patient that his oncologist must take over the care of his opioids if he is to continue on this level opioid therapy. He says that they no longer write his medications for pain. He would like to switch from hydrocodone to oxycodone because it worked better for his pain. I will switch the hydrocodone to oxycodone 10 mg 4 times daily and switch the gabapentin to pregabalin 100 mg 3 times daily secondary to drowsiness on the gabapentin. I informed the patient that the drowsiness is probably related to the amount of opioid therapy he was getting. However we will see him back in 1 month and reevaluate. I explained to the patient that we do not give high-dose opioid therapy and if that is what he needs then his only option is the oncologist who can give him treatment for pain until he stabilizes. 09/22/2024 Other adjunct faculty for medical terminology (current) drug therapy (ICD-10 - Z79.899) 09/22/2024 1. Refill Baclofen 10mg TID prn 2. d/c Ephrata 10/325mg QID #112 3. Start Oxycodone 10mg QID 4. D/C Gabapentin 400mg HS 5. Start Lyrica 100mg TID September 22, 2024: The patient presents to the [facility] office in [facility] for an audiovisual-telem edicine visit. The patient was evaluated by the medical affairs director and a urine drug screen was obtained as well as vital signs. Portions of the physical examination were assisted by the medical affairs director during the audiovisual-telem edicine visit Review of [...] treatment and has 6 more radiation treatments. September 22, 2024: Mr. Keita is a 39-year-old patient with a recent diagnosis of head neck cancer. He has been followed by oncology and has been given as many as 12 oxycodone 10 mg tablets daily in addition to fentanyl 50 mcg. The patient has undergone chemotherapy and radiation therapy but no surgery. He says that he has a feeding tube and continues to have dysphagia. His pain today is 7/10 and mostly located in the lower back in the middle back as well. He started having back pain at the age of 19 secondary to a work injury and a herniated disc. He has had no back surgery. I reviewed the urine drug screen and the Bart report. The patient is not an interventional treatment candidate at this time. Review of the Bart shows that he has been on a very high dose of opioid therapy and I informed the patient that his oncologist must take over the care of his opioids if he is to continue on this level opioid therapy. He says that they no longer write his medications for pain. He would like to switch from hydrocodone to oxycodone because it worked better for his pain. I will switch the hydrocodone to oxycodone 10 mg 4 times daily and switch the gabapentin to pregabalin 100 mg 3 times daily secondary to drowsiness on the gabapentin. I informed the patient that the drowsiness is probably related to the amount of opioid therapy he was getting. However we will see him back in 1 month and reevaluate. I explained to the patient that we do not give high-dose opioid therapy and if that is what he needs then his only option is the oncologist who can give him treatment for pain until he stabilizes. 10/17/2024 Other adjunct faculty for medical terminology (current) drug therapy (ICD-10 - Z79.899) October 17, 2024 1. Refill Baclofen 10mg TID prn 2. Refill Oxycodone 10mg QID 3. Refill Lyrica 100mg TID October 17, 2024: The patient presents to the [facility] office in [facility] for an audiovisual-telem edicine visit. The patient was evaluated by the medical affairs director and a urine drug screen was obtained as well as vital signs. Portions of the physical examination were assisted by the medical affairs director during the audiovisual-telem edicine visit Review of [...] and see him back in 2 months. 11/14/2024 Other adjunct faculty for medical terminology (current) drug therapy (ICD-10 - Z79.899) 12/12/2024 Other adjunct faculty for medical terminology (current) drug therapy (ICD-10 - Z79.899) 12/12/2024 1. Refill Baclofen 10mg TID prn 2. Refill Oxycodone 10mg QID 3. Refill Lyrica 100mg TID 4. RTC 2 months October 17, 2024: The patient presents to the [facility] office in [facility] for an audiovisual-telem edicine visit. The patient was evaluated by the medical affairs director and a urine drug screen was obtained as well as vital signs. Portions of the physical examination were assisted by the medical affairs director during the audiovisual-telem edicine visit Review of [...] history of Stage 3 cancer treated at [facility], as well as cardiac stents, anxiety, and [...] months or sooner if needed. 12/12/2024 Other penitentiary (current) drug therapy (ICD-10 - Z79.899) 12/12/2024 Other spondylosis, lumbar region (ICD-10 - M47.896) October 17, 2024: The patient presents to the [facility] office in [facility] for an audiovisual-telem edicine visit. The patient was evaluated by the medical affairs director and a urine drug screen was obtained as well as vital signs. Portions of the physical examination were assisted by the medical affairs director during the audiovisual-telem edicine visit Review of [...] history of Stage 3 cancer treated at [facility], as well as cardiac stents, anxiety, and [...] in two months or sooner if needed. 10/17/2024 Other spondylosis, lumbar region (ICD-10 - M47.896) October 17, 2024: The patient presents to the [facility] office in [facility] for an audiovisual-telem edicine visit. The patient was evaluated by the medical affairs director and a urine drug screen was obtained as well as vital signs. Portions of the physical examination were assisted by the medical affairs director during the audiovisual-telem edicine visit Review of [...] and see him back in 2 months. 09/22/2024 Radiculopathy, lumbar region (ICD-10 - M54.16) September 22, 2024: The patient presents to the [facility] office in [facility] for an audiovisual-telem edicine visit. The patient was evaluated by the medical affairs director and a urine drug screen was obtained as well as vital signs. Portions of the physical examination were assisted by the medical affairs director during the audiovisual-telem edicine visit Review of [...] treatment and has 6 more radiation treatments. September 22, 2024: Mr. Keita is a 39-year-old patient with a recent diagnosis of head neck cancer. He has been followed by oncology and has been given as many as 12 oxycodone 10 mg tablets daily in addition to fentanyl 50 mcg. The patient has undergone chemotherapy and radiation therapy but no surgery. He says that he has a feeding tube and continues to have dysphagia. His pain today is 7/10 and mostly located in the lower back in the middle back as well. He started having back pain at the age of 19 secondary to a work injury and a herniated disc. He has had no back surgery. I reviewed the urine drug screen and the Bart report. The patient is not an interventional treatment candidate at this time. Review of the Bart shows that he has been on a very high dose of opioid therapy and I informed the patient that his oncologist must take over the care of his opioids if he is to continue on this level opioid therapy. He says that they no longer write his medications for pain. He would like to switch from hydrocodone to oxycodone because it worked better for his pain. I will switch the hydrocodone to oxycodone 10 mg 4 times daily and switch the gabapentin to pregabalin 100 mg 3 times daily secondary to drowsiness on the gabapentin. I informed the patient that the drowsiness is probably related to the amount of opioid therapy he was getting. However we will see him back in 1 month and reevaluate. I explained to the patient that we do not give high-dose opioid therapy and if that is what he needs then his only option is the oncologist who can give him treatment for pain until he stabilizes. 07/30/2024 Radiculopathy, lumbar region (ICD-10 - M54.16) 07/30/2024 Benigno presents today for follow up and [...] treatment and has 6 more radiation treatments. Medication palafox Ephrata 10mg QID. Continue gabapentin 400mg at bedtime, along with baclofen 10mg TID as needed. Most recent BART and UDS reviewed. He is to follow up in 2 months. 06/02/2024 Radiculopathy, lumbar region (ICD-10 - M54.16) 04/09/2024 The patient presents to the [facility] office in [place], [place] for an audiovisual-telem edicine visit via [employer].The patient was evaluated by the medical affairs director and a urine drug screen was obtained as well as vital signs. Portions of the physical examination were assisted by the medical affairs director as instructed during the audiovisual telemedicine visit. Patient consented to telemed visit, provider located at [facility] in [place], [place]. Reports shooting pain that starts from the [...] of his neck and collar bone. He is scheduled with oncology on Apr.23. He reports that his pain has been somewhat out of control the last couple of months. He reports having difficulty sleeping at night secondary to the shoulder and neck pain. 06/02/2024 Patient here today for follow up and medication refills. Continues to report pain in mid-lower back. He reports his pain level a 7. Denies any real changes since his last office visit. Patient had gastrostomy tube placed last Sunday from dysphagia from the progressing neck and throat cancer. He was prescribed Oxycodone during admission. Right side of patient neck is enlarged and red. Patient reports burning tingling pain at night and continues to struggle to sleep. Will adjust his Gabapentin to 400mg at night. Medication palafox Ephrata 10mg QID. Continue gabapentin 400mg at bedtime, along with baclofen 10mg TID as needed. Most recent BART and UDS reviewed. He is to follow up in 2 months. 04/09/2024 Radiculopathy, lumbar region (ICD-10 - M54.16) 04/09/2024 The patient presents to the [facility] office in [place], [place] for an audiovisual-telem edicine visit via [employer].The patient was evaluated by the medical affairs director and a urine drug screen was obtained as well as vital signs. Portions of the physical examination were assisted by the medical affairs director as instructed during the audiovisual telemedicine visit. Patient consented to telemed visit, provider located at [facility] in [place], [place]. Reports shooting pain that starts from the [...] of his neck and collar bone. He is scheduled with oncology on Apr.23. He reports that his pain has been somewhat out of control the last couple of months. He reports having difficulty sleeping at night secondary to the shoulder and neck pain. Will increase norco 10mg from TID to QID. Continue gabapentin 300mg at bedtime, along with baclofen 10mg TID as needed. Most recent BART and UDS reviewed. He is to follow up in 2 months. Refill his medications on appropriate refill date. 02/08/2024 Radiculopathy, lumbar region (ICD-10 - M54.16) 02/08/2024 Mr. Keita returns today for an office visit and medication refill. He still has c/o pain in his bilateral feet. He states that he has burning sensation in his feet along with sharp, shooting pain. Reports shooting pain that starts from the [...] equina compression. Mild bilateral L4-5 foraminal stenosis. Continue norco 10mg TID, gabapentin 300mg at bedtime, along with baclofen 10mg TID as needed Most recent BART and UDS reviewed. Reviewed Lumbar MRI, refer to neurosurgery. He is to follow up in 2 months. Refill his medications on appropriate refill date. 02/08/2024 Cervicalgia (ICD-10 - M54.2) 02/08/2024 Mr. Keita returns today for an office visit and medication refill. He still has c/o pain in his bilateral feet. He states that he has burning sensation in his feet along with sharp, shooting pain. Reports shooting pain that starts from the [...] equina compression. Mild bilateral L4-5 foraminal stenosis. Continue norco 10mg TID, gabapentin 300mg at bedtime, along with baclofen 10mg TID as needed Most recent BART and LISY reviewed. Reviewed Lumbar MRI, refer to neurosurgery. He is to follow up in 2 months. Refill his medications on appropriate refill date. 04/09/2024 Cervicalgia (ICD-10 - M54.2) 04/09/2024 The patient presents to the [facility] office in [place], [place] for an audiovisual-telem edicine visit via [employer].The patient was evaluated by the medical affairs director and a urine drug screen was obtained as well as vital signs. Portions of the physical examination were assisted by the medical affairs director as instructed during the audiovisual telemedicine visit. Patient consented to telemed visit, provider located at [facility] in [place], [place]. Reports shooting pain that starts from the [...] of his neck and collar bone. He is scheduled with oncology on Apr.23. He reports that his pain has been somewhat out of control the last couple of months. He reports having difficulty sleeping at night secondary to the shoulder and neck pain. Will increase norco 10mg from TID to QID. Continue gabapentin 300mg at bedtime, along with baclofen 10mg TID as needed. Most recent BART and UDS reviewed. He is to follow up in 2 months. Refill his medications on appropriate refill date. 06/02/2024 Cervicalgia (ICD-10 - M54.2) 04/09/2024 The patient presents to the [facility] office in [place], [place] for an audiovisual-telem edicine visit via [employer].The patient was evaluated by the medical affairs director and a urine drug screen was obtained as well as vital signs. Portions of the physical examination were assisted by the medical affairs director as instructed during the audiovisual telemedicine visit. Patient consented to telemed visit, provider located at [facility] in [place], [place]. Reports shooting pain that starts from the [...] of his neck and collar bone. He is scheduled with oncology on Apr.23. He reports that his pain has been somewhat out of control the last couple of months. He reports having difficulty sleeping at night secondary to the shoulder and neck pain. 06/02/2024 Patient here today for follow up and medication refills. Continues to report pain in mid-lower back. He reports his pain level a 7. Denies any real changes since his last office visit. Patient had gastrostomy tube placed last Sunday from dysphagia from the progressing neck and throat cancer. He was prescribed Oxycodone during admission. Right side of patient neck is enlarged and red. Patient reports burning tingling pain at night and continues to struggle to sleep. Will adjust his Gabapentin to 400mg at night. Medication palafox Ephrata 10mg QID. Continue gabapentin 400mg at bedtime, along with baclofen 10mg TID as needed. Most recent BART and UDS reviewed. He is to follow up in 2 months. 07/30/2024 Cervicalgia (ICD-10 - M54.2) 07/30/2024 Benigno presents today for follow up and [...] treatment and has 6 more radiation treatments. Medication palafox Ephrata 10mg QID. Continue gabapentin 400mg at bedtime, along with baclofen 10mg TID as needed. Most recent BART and UDS reviewed. He is to follow up in 2 months. 09/22/2024 Cervicalgia (ICD-10 - M54.2) September 22, 2024: The patient presents to the [facility] office in [facility] for an audiovisual-telem edicine visit. The patient was evaluated by the medical affairs director and a urine drug screen was obtained as well as vital signs. Portions of the physical examination were assisted by the medical affairs director during the audiovisual-telem edicine visit Review of [...] treatment and has 6 more radiation treatments. September 22, 2024: Mr. Keita is a 39-year-old patient with a recent diagnosis of head neck cancer. He has been followed by oncology and has been given as many as 12 oxycodone 10 mg tablets daily in addition to fentanyl 50 mcg. The patient has undergone chemotherapy and radiation therapy but no surgery. He says that he has a feeding tube and continues to have dysphagia. His pain today is 7/10 and mostly located in the lower back in the middle back as well. He started having back pain at the age of 19 secondary to a work injury and a herniated disc. He has had no back surgery. I reviewed the urine drug screen and the Bart report. The patient is not an interventional treatment candidate at this time. Review of the Bart shows that he has been on a very high dose of opioid therapy and I informed the patient that his oncologist must take over the care of his opioids if he is to continue on this level opioid therapy. He says that they no longer write his medications for pain. He would like to switch from hydrocodone to oxycodone because it worked better for his pain. I will switch the hydrocodone to oxycodone 10 mg 4 times daily and switch the gabapentin to pregabalin 100 mg 3 times daily secondary to drowsiness on the gabapentin. I informed the patient that the drowsiness is probably related to the amount of opioid therapy he was getting. However we will see him back in 1 month and reevaluate. I explained to the patient that we do not give high-dose opioid therapy and if that is what he needs then his only option is the oncologist who can give him treatment for pain until he stabilizes. 10/17/2024 Radiculopathy, lumbar region (ICD-10 - M54.16) October 17, 2024: The patient presents to the [facility] office in [facility] for an audiovisual-telem edicine visit. The patient was evaluated by the medical affairs director and a urine drug screen was obtained as well as vital signs. Portions of the physical examination were assisted by the medical affairs director during the audiovisual-telem edicine visit Review of [...] and see him back in 2 months. 12/12/2024 Radiculopathy, lumbar region (ICD-10 - M54.16) October 17, 2024: The patient presents to the [facility] office in [facility] for an audiovisual-telem edicine visit. The patient was evaluated by the medical affairs director and a urine drug screen was obtained as well as vital signs. Portions of the physical examination were assisted by the medical affairs director during the audiovisual-telem edicine visit Review of [...] history of Stage 3 cancer treated at [facility], as well as cardiac stents, anxiety, and [...] 17, 2024: The patient presents to the [facility] office in [facility] for an audiovisual-telem edicine visit. The patient was evaluated by the medical affairs director and a urine drug screen was obtained as well as vital signs. Portions of the physical examination were assisted by the medical affairs director during the audiovisual-telem edicine visit Review of [...] history of Stage 3 cancer treated at [facility], as well as cardiac stents, anxiety, and [...] in two months or sooner if needed. 10/17/2024 Cervicalgia (ICD-10 - M54.2) October 17, 2024: The patient presents to the [facility] office in [facility] for an audiovisual-telem edicine visit. The patient was evaluated by the medical affairs director and a urine drug screen was obtained as well as vital signs. Portions of the physical examination were assisted by the medical affairs director during the audiovisual-telem edicine visit Review of [...] back in 2 months. Plan Of Treatment Pending Test Test Name Order Date Urine Test LCMS Definitive 07/30/2024 Urine Test LCMS Definitive 10/17/2024 Next Appt Details Provider Name:Andrés trivedi, 02/06/2025 01:15:00 PM, [address], [address], [place], [address], Insurance Providers Payer Name Payer Address Payer Phone Subscriber Number Group Number Insured Name Patient Relationship to Insured Coverage Start Date Coverage End Date [employer] [address] [place] [id number] Benigno Keita Self - patient is the insured 1 Medical (General) History Medical History History ICD Code anxiety diagnosed (not managed) depression diagnosed in (not manag ed) hyperlipidemia diagnosed 2020, managed b y [facility] unknown HTN diagnosed 2020, managed by [facility] unknown 2024 pt diagnosed with cancer stage 3 [facility] Surgical History Surgery Date(Month/Year) [employer]/[place]/ UNKNOWN/ 1 night stay 2024 appendectomy (unknown) 2002 cardiac stent [place] ([place]) (OP) hernia repair [facility] ([place]) (OP) cholecystetomy pt denies 2002
--- OUTSIDE RECORDS SUMMARY | 2024-12-16 21:44 | XMS_ITS ---
Author Organization [facility] Address [address] 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 Class III obesity with body mass index (BMI) of 40.0 or higher 04/27/2024 Neck mass 04/25/2024 Tobacco use disorder 04/24/2024 Second hand smoke exposure 04/24/2024 Lumbar radiculopathy 01/18/2023 Allergic rhinitis 11/22/2022 Overview (05/22/2024): Last Assessment & Plan: Condition: stable Follow up in: three months History of TN (myocardial infarction) 11/22/2022 Overview (05/22/2024): Followed by Body Piercer, last seen 11/13/22 Last Assessment & Plan: Condition: stable Follow up in: three months 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 However, if you're immunocompromised, one or more of those parts may not work correctly. As a result, your immune system doesn't work as efficiently as usual. Immunocompromised patients, must be careful not to weaken their immune system further. Emotional stress, lack of sleep, and physical exhaustion can all depress immunity, making an immunocompromised patient more susceptible to disease. Additionally, a healthy diet consisting of foods supporting immunity is wilcox. In general, some other precautions include: o Proper and frequent handwashing o Proper buccal hygiene including taking care of teeth and gums o Avoiding crowds and people who are sick o Asking a healthcare provider about what vaccines are safe o Wash well all undercooked vegetables or fruit. o Do not eat or drink unpasteurized milk or dairy products. o Do not consume raw or undercooked products Follow up in: three months Leg swelling 11/22/2022 Overview (05/22/2024): Wears compression stocking; followed by director trial Last Assessment & Plan: Condition: stable Follow up in: three months SOB (shortness of breath) 11/22/2022 Overview (05/22/2024): Referred to pulmonary Last Assessment & Plan: Condition: stable Follow up in: three months Peripheral artery disease 2022 Anxiety 02/03/2022 Chronic cough 02/03/2022 Chronic diarrhea 02/03/2022 Osteoporosis 02/03/2022 Overview (05/22/2024): Followed by Physical therapist in [place], [place] Carlos Ogden Provider As well as pain management- last received injection two weeks ago. 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 11/22/2021 Phlebitis and thrombophlebitis of other sites Hemochromatosis 10/27/2021 Overview (05/22/2024): Last Assessment & Plan: Condition: stable Follow up in: three months Neutrophilic leukemoid reaction 10/27/2021 Fatty liver disease, nonalcoholic 10/26/2021 Morbid (severe) obesity due to excess calories 0 10/26/2021 Overview (05/22/2024): Last Assessment & Plan: Condition: stable Co-morbidities: N/A BMI > 40 Follow up in: three months Herpes zoster 10/26/2021 Nicotine dependence, cigarettes, uncomplicated 0 10/26/2021 Heart attack 04/02/2021 Decreased testosterone level 10/26/2020 Erectile dysfunction 10/26/2020 Overview (05/22/2024): Occasional Ejaculation burning- educated on importance to inform physician of issue- member voiced he understood. Last Assessment & Plan: Condition: stable Follow up in: three months Umbilical hernia 01/22/2020 Elevated LFTs 10/12/2019 Dyslipidemia 06/20/2019 Fatigue 08/08/2018 Bipolar disorder 2016 Overview (05/22/2024): PHQ-9 completed; negative score- not currently under BH therapy or medication management Last Assessment & Plan: Condition: stable not currenlt in treatment Medications: Member stable off of medications If taking medications, do not stop treatment without consulting healthcare provider. If symptoms worsen or do not improve/stabilize, notify health care provider right away. If thoughts of harming self or others notify health care provider immediately &/or seek urgent/emergent care including calling Suicide Hotline (438 or ) or 721. Follow up in three months with PCP Hyperlipidemia 2016 Overview (05/22/2024): Last Assessment & Plan: Condition: stable Follow up in: three months Left upper arm injury 2016 Opiate use 2016 Left wrist pain 03/05/2014 Chronic back pain 01/01/2014 Knee effusion, right 01/01/2014 Insomnia 11/14/2013 PVC (premature ventricular contraction) CAD (coronary artery disease) Polycythemia vera Hypertension History of coronary angioplasty with insertion o f stent Dysphagia, oropharyngeal GERD (gastroesophageal reflux disease) Myers's esophagus Degenerative disc disease, lumbar Degenerative disc disease, cervical Degenerative disc disease, 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 IV Fluid NO Electrolytes* Plan Start Date:07/14/2024 Plan Provider:Rosemarie Hidalgo MD Linked Problems Right tonsillar squamous navarro l carcinoma Treatment Medications No medications scheduled. Past Treatment and Therapy Plans Oncology Treatment Plan Name Start Date Discontinue Date Treatment Medications Discontinue Reason Plan Provider Cycles CISplatin + XRT Every 7 Days 5 07/28/2024 CISplatin (Platinol)CISp latin (Platinol) IVPB Therapy Complete Rosemarie Hidalgo MD 6 of 6 cycles completed Past Radiation Episodes * VMAT: Bilateral Head and neckOverview* First Treatment Date Last Treatment Date Treatment Site Technique Goal Episode Provider 06/10/2024 08/07/2024 Bilateral Head and neck VMAT Curative * Linked Problems Squamous cell carcinoma of o ropharynx * Episode Note RADIATION ONCOLOGY TREATMENT SUMMARY PATIENT NAME: Benigno Keita DATE OF : 1985 RFEFERRING PHYSICIAN: Rambo Vargas MD DIAGNOSIS: Cancer Staging Right tonsillar squamous cell carcinoma Staging form: Pharynx - HPV-Mediated Oropharynx, AJCC 8th Edition - Clinical stage from 05/02/2024: Stage III (cT3, cN3, cM0, p16+) - Signed by Rosemarie Hidalgo MD on 05/22/2024 PRIOR RADIATION THERAPY: none TREATMENT SITE: bilateral neck TREATMENT DOSE: External beam radiotherapy, targeting the bilateral neck, with total dose of 54.12 Gy in 33 fractions of 1.64 Gy, with simultaneous integrated boost to the high high regions up to the final dose of 69.96Gy, delivered through IMRT / VMAT technique. TREATMENT DATES: 06/10/2024 - 08/06/2024 TREATMENT NOTE: Benigno Keita is a 39 y.o. 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 Stage cT3 cN3 M0. His treatment course was uncomplicated and no unexpected acute toxicities were noticed. FOLLOW-UP: Follow up in clinic in 1 month as scheduled. If you have any questions regarding this course of radiation, please feel free to contact our clinic at any time. Respectfully; Vasu Washington MD Instructor, Radiation Oncology department [facility] Treatment Courses* Course IMRT QA 08/07/2024 - 08/07/2024 Treatment Period Fraction Dose Fractions Total Dose Plans Planned A1A4 08/07/2024 - 08/07/2024 212 cGy 0 / 1 2 12 cGy Replan A5A8 08/07/2024 - 08/07/2024 212 cGy 0 / 1 212 cGy Reference Points Delivered Verification 08/07/2024 - 08/07/2024 0 cGy Verification1 08/07/2024 - 08/07/2024 0 cGy * Course Unused 08/07/2024 - 08/07/2024 Treatment Period Fraction Dose Fractions Total Dose Plans Planned [id number] 08/07/2024 - 08/07/2024 212 cGy 0 / 17 3 ,604 cGy Replan A5A8 08/07/2024 - 08/07/2024 212 cGy 0 / 33 6,996 cGy Reference Points Delivered H&N 08/07/2024 - 08/07/2024 0 cGy * Course C1 06/10/2024 - 08/06/2024 Treatment Period Fraction Dose Fractions Total Dose Plans Planned A1A4 06/10/2024 - 08/06/2024 212 cGy 17 / 33 6 ,996 cGy Replan A5A8 07/10/2024 - 08/06/2024 212 cGy 16 / 16 3,392 cGy Reference Points Delivered H&N 06/10/2024 - 08/06/2024 6,996 cGy Lifetime Dose Tracking * Chemical Lifetime Dose Automatic Entry Manual Entr y Fluoro Time 3.8 minutes 3.8 minutes 0 minutes Air Kerma 20.5 mGy 20.5 mGy 0 mGy Resolved Problems Problem Noted Date Diagnosed Date Resolved Date Chronic bronchitis with COPD (chronic obstructive pulmonary disease) 01/01/2014 5
--- OUTSIDE RECORDS SUMMARY | 2024-12-16 21:44 | XMS_ITS | Encounter Summary ---
Author Organization Healthcare Address [address] [place] [address] Care Team Providers Care Oxygraph Operator Name Role Phone Delmi Robledo MD Primary Care Provider [phone] Promise Lopez RN Unavailable Vasu Felipe MD Unavailable Encounter Details Date Type Department Care Team ([facility] st Contact Info) Description 11/17/2024 Telephone [facility] Head, Neck & Respiratory [address] [facility], 2nd [place] [phone] Ann Mcginnis Social History Tobacco Use Types [...] time in the past 12 m [facility], were you homeless or living in a detention (including now)? No 08/19/2024 CAGE ASSESSMENT Answer [...] first t mario alberto in the morning (EYE-BREAD STACKER) to steady your nerves or to get [...] EDT Office Visit PAV CC Voice [address] [facility], 2nd [place] [phone] Mariza Jenkins, MS CCC-COMMERCIAL FISHERMAN 12/29/2024 9:30 AM EDT Office Visit [facility] Head, Neck & Respiratory [address] , [address] [place] [address] Rambo Vargas MD [address] [facility] [address] [place] [address] 01/19/2025 2:00 PM EDT Clinical Support Pav [facility] Head, Neck & Respiratory [address] [facility], 2nd [place] [address] 01/19/2025 3:00 PM EDT Appointment PAV G Radiology [address] [place] [address] 01/22/2025 2:00 PM EDT Appointment P[facility] CC Radiation [address] [facility]. [id number] [place] [address] Vasu Scruggs MD [address] [facility] [address] [place] [address] 01/22/2025 3:50 PM EDT Office Visit [facility] Head, Neck & Respiratory [address] , [address] [place] [address] Rosemarie Hidalgo MD [address] [facility] [address] [address] [place] [address] 02/20/2025 11:30 AM EST Office Visit [facility] [address], 3rd [place] [address] Kaleigh Hutton MD [address] [place] [address] 04/13/2025 3:00 PM EST Office Visit [facility] Medicine Specialties [address], [address]nd [place] [address] Kye Trujillo MD [address] [place] [address] documented as of this encounter [...] documented as of this encounter Care Teams Oxygraph Operator Relationship Specialty Start Date End Date Delmi Robledo MD [address] [place] [address] PCP - General 02/09/23 Promise Lopez RN [facility] Nurse Navigator Hematology and Oncology 05/22/24 Vasu Scruggs MD [address] [place] [address] Service Attending Radiation Oncology 05/22/24 documented as of this encounter
--- OUTSIDE RECORDS SUMMARY | 2024-12-16 21:44 | XMS_ITS | Encounter Summary ---
Author Organization Healthcare Address [address] [id number] Care Team Providers Care Dumping Machine Operator Name Role Phone Delmi Robledo MD Primary Care Provider [phone] Promise Lopez RN Unavailable Vasu Felipe MD Unavailable Reason for Referral * Consultation (Routine) - Closed Specialty Diagnoses / Procedures Referred By Contlakshmi t Referred To Contact Otolaryngology Diagnoses Myers's esophagus without dysplasia Rambo Vargas MD [address] [address] Phone: tel: fax: [facility] [address], [address] [place] [address] Phone: tel: fax: Referral ID Status Reason Start Date Expiration Date V isits Requested Visits Authorized [id number] Closed Specialty Services Required 11/04/2024 05/06/2026 1 1 Scheduling Instructions referral to Dr. Leggett or Brennen to evaluate for esophageal dilation please Encounter Details Date Type Department Care Team ([facility] st Contact Info) Description 11/04/2024 Orders Only Pav [facility] Head, Neck & Respiratory [address] [facility], [address]nd Floor [place] [phone] Rambo Vargas MD [address] [place] [address] Myers's esophagus without dysplasia (Primary Dx) Social History Tobacco Use [...] any time in the past 12 m [facility], were you homeless or living [...] first t mario alberto in the morning (EYE-FAMILY PRESERVATION CASEWORKER) to steady your nerves or to get rid of a hangover? 0 05/29/2024 CAGE Questionnaire Score 0 025 Utilities Answer Date Recorded In the past 12 months has [employer], gas, oil, or water [employer] threatened to shut off services in your home? No 08/19/2024 Sex and Gender Information Value Date Recorded Sex Assigned at Male 05/02/2024 7:53 AM EST Legal Sex Male 8:27 PM EDT Gender Identity Not on file Sexual Orientation Choose not to disclose 2024 4:38 PM EST documented as of this encounter Plan of Treatment Upcoming Encounters Date Type Department Care Team ([facility] st Contact Info) Description 12/29/2024 8:30 AM EDT Office Visit [facility] Voice [address] [facility], [address]nd [place] [phone] Mariza Jenkins, MS CCC-ELECTRIC METER TESTER 12/29/2024 9:30 AM EDT Office Visit [facility] Head[facility] Neck & Respiratory [address] [facility], [address]nd [place] [address] Rambo Vargas MD [address] [facility] [address] [place] [address] 01/19/2025 2:00 PM EDT Clinical Support [facility] Head, Neck & Respiratory [address], [address] [place] [address] 01/19/2025 3:00 PM EDT Appointment PAV G Radiology [address] [place] [address] 01/22/2025 2:00 PM EDT Appointment [facility] CC Radiation [address] [facility]. [address] [place] [address] Vasu Scruggs MD [address] [facility] [address] [place] [address] 01/22/2025 3:50 PM EDT Office Visit [facility] Head[facility] Neck & Respiratory [address] [facility], [address]nd [place] [address] Rosemarie Hidalgo MD [address] [facility] [address] [place] [address] 02/20/2025 11:30 AM EST Office Visit [facility] Otolaryngology [address], [address] [place] [address] Kaleigh Hutton MD [address] [facility] [address] [place] [address] 04/13/2025 3:00 PM EST Office Visit [facility] Medicine Specialties [address], [address] [place] [address] Kye Trujillo MD [address] [facility] [address] [place] [address] Scheduled Referrals Name Type Priority Associated Diagnoses Order Schedule Ambulatory referral to ENT Outpatient Referral Routine Myers's esophagus without dysplasia Expected: 11/04/2024 (Approximate), Expires: 05/07/2026 documented as of this encounter Visit Diagnoses Diagnosis Myers's esophagus without dysplasia- Primary documented in this encounter Additional Health Concerns Assessment Noted Time PHQ-9 Depression Total Score: 0 09/09/19 12:35 PM EDT A fall risk assessment has been complete d for the patient 10/27/2024 9:43 AM EDT A Body Mass Index follow-up plan has been documented for the patient 10/27/2024 10:45 AM EDT documented as of this encounter Care Teams Dumping Machine Operator Relationship Specialty Start Date End Date Delmi Robledo MD [address] [place] [address] PCP - General 02/09/23 Promise Lopez RN [facility] Nurse Navigator Hematology and Oncology 05/22/24 Vasu Scruggs MD [address] [place] [address] Service Attending Radiation Oncology 05/22/24 documented as of this encounter
--- OUTSIDE RECORDS SUMMARY | 2024-12-16 21:44 | XMS_ITS | Encounter Summary ---
Author Organization Healthcare Address [address] [place] [address] Care Team Providers Care Siene Maker Name Role Phone Delmi Robledo MD Primary Care Provider [phone] Promise Lopez RN Unavailable Vasu Felipe MD Unavailable Encounter Details Date Type Department Care Team ([facility] st Contact Info) Description 11/12/2024 Telephone Pav [facility] Head, Neck & Respiratory [address] [facility], [address]nd [place] [address] Ann Mcginnis Social History Tobacco Use Types [...] any time in the past 12 m [facility], were you homeless or living in a [facility] (including now)? No 08/19/2024 CAGE ASSESSMENT Answer [...] first t mario alberto in the morning (EYE-HAND CLERICAL VERIFIER) to steady your nerves or to get [...] EDT Office Visit P[facility] CC Voice [address] [facility], [address]nd [place] [phone] Mariza Jenkins, MS CCC-JUDICIAL REGISTRAR 12/29/2024 9:30 AM EDT Office Visit [facility] Head[facility] Neck & Respiratory [address] , [address] [place] [address] Rambo Vargas MD [address] [facility] [address] [place] [address] 01/19/2025 2:00 PM EDT Clinical Support [facility] Head, Neck & Respiratory [address] [facility], [address]nd [place] [address] 01/19/2025 3:00 PM EDT Appointment P[facility] G Radiology [address] [place] [address] 01/22/2025 2:00 PM EDT Appointment P[facility] CC Radiation [address] [facility]. [address] [place] [address] Vasu Scruggs MD [address] [facility] [address] [place] [address] 01/22/2025 3:50 PM EDT Office Visit [facility] Head[facility] Neck & Respiratory [address] , [address] [place] [address] Rosemarie Hidalgo MD [address] [facility] [address] [place] [address] 02/20/2025 11:30 AM EST Office Visit [facility] [address], [address]rd [place] [address] Kaleigh Hutton MD [address] [place] [address] 04/13/2025 3:00 PM EST Office Visit [facility] Medicine [facility] [address], [address] [place] [address] Kye Trujillo MD [address] [place] [address] documented as of this encounter [...] documented as of this encounter Care Teams Siene Maker Relationship Specialty Start Date End Date Delmi Robledo MD [address] [place] [address] PCP - General 02/09/23 Promise Lopez RN [facility] Nurse Navigator Hematology and Oncology 05/22/24 Vasu Scruggs MD [address] [place] [address] Service Attending Radiation Oncology 05/22/24 documented as of this encounter
--- OUTSIDE RECORDS SUMMARY | 2024-12-16 21:44 | XMS_ITS | Encounter Summary ---
Author Organization Healthcare Address [address] [id number] Care Team Providers Care Harnessmaker Name Role Phone Delmi Robledo MD Primary Care Provider [phone] Promise Lopez RN Unavailable Vasu Felipe MD Unavailable Sintia Lester BLOW MOLD OPERATOR Unavailable Unavailable Encounter Details Date Type Department Care Team (Late Contact Info) Description 01/12/2023 Orders Only External Location [address] [place] [address] Provider, External Social History Tobacco Use Types [...] Upcoming Encounters Date Type Department Care Team ([facility] Contact Info) Description 12/29/2024 8:30 AM EDT Office Visit [facility] Voice [address] [facility] [address]nd [place] [address] Mariza Jenkins MS CCC-LENS EDGE GRINDER MACHINE 12/29/2024 9:30 AM EDT Office Visit [facility] Head, Neck & Respiratory [address] [phone] Rambo Vargas MD [address] [facility] [address] [place] [address] 01/19/2025 2:00 PM EDT Clinical Support [facility] Head, Neck & Respiratory [address] [facility], 2nd [place] [address] 01/19/2025 3:00 PM EDT Appointment PAV G Radiology [address] [place] [address] 01/22/2025 2:00 PM EDT Appointment P[facility] CC Radiation [address] [facility]. [address] [place] [address] Vasu Scruggs MD [address] [facility] [address] [place] [address] 01/22/2025 3:50 PM EDT Office Visit [facility] Head, Neck & Respiratory [address] [facility], 2nd [place] [address] Rosemarie Hidalgo MD [address] [facility] [address] [place] [address] 02/20/2025 11:30 AM EST Office Visit [facility] [address], [address]rd [place] [address] Kaleigh Hutton MD [address] [place] [address] 04/13/2025 3:00 PM EST Office Visit [facility] Medicine Specialties [address], [address] [place] [address] Kye Trujillo MD [address] [facility] [address] [place] [address] documented as of this encounter Procedures Procedure Name Priority Date/Time Associated Diagnosis Comments CT NEURO OUTSIDE IMAGES 01/12/2023 11:52 AM EDT documented in this encounter Results * CT NEURO OUTSIDE IMAGES (01/12/2023 11:52 AM EDT) Anatomical Region Laterality Modality Computed Tomogra phy 01/12/2023 11:5 2 AM EDT us External Provider IMG CT PROCEDURES Final Result documented in this encounter Visit Diagnoses Not on filedocumented in this encounter Care Teams Harnessmaker Relationship Specialty Start Date End Date Delmi Robledo MD [address] [place] [address] PCP - General 02/09/23 Promise Lopez RN [facility] Nurse Navigator Hematology and Oncology 05/22/24 Vasu Scruggs MD [address] [facility] [address] [place] [address] Service Attending Radiation Oncology 05/22/24 Sintia Lester LPN VALUE-BASED [place] [address] [facility] Nurse 08/20/24 09/19/24 documented as of this encounter
--- OUTSIDE RECORDS SUMMARY | 2024-12-16 21:44 | XMS_ITS | Encounter Summary ---
Author Organization Healthcare Address [address] [id number] Care Team Providers Care Sporting Goods Sales Associate Name Role Phone Delmi Robledo MD Primary Care Provider [phone] Promise Lopez RN Unavailable Vasu Felipe MD Unavailable Encounter Details Date Type Department Care Team (Latest Contact Info) Description 11/17/2024 Travel Social History Tobacco Use Types Packs/Day Years [...] any time in the past 12 m [facility], were you homeless or living [...] first t mario alberto in the morning (EYE-EMBROIDERY MACHINE OPERATOR) to steady your nerves or [...] EDT Office Visit [facility] Voice [address] [facility], [address] [place] [address] Gregory Mariza Prashanth, MS CCC-PUBLIC SAFETY OFFICER 12/29/2024 9:30 AM EDT Office Visit [facility] Res[facility] [address] [facility], 2nd [place] [address] Rambo Vargas MD [address] [facility] [address] [place] [address] 01/19/2025 2:00 PM EDT Clinical Support [facility] Head[facility] Neck & Respiratory [address] [facility] [address] [place] [address] 01/19/2025 3:00 PM EDT Appointment [facility] G Radiology [address] [place] [address] 01/22/2025 2:00 PM EDT Appointment [facility] Radiation [address] [facility]. [id number] [place] [address] Vasu Scruggs MD [address] [facility] [address] [place] [address] 01/22/2025 3:50 PM EDT Office Visit [facility] Head[facility] Neck [facility] Respiratory [address] [facility], [address] [place] [address] Rosemarie Hidalgo MD [address] [facility] [address] [place] [address] 02/20/2025 11:30 AM EST Office Visit [facility] Clinic Otolaryngology [address], [address]rd [place] [address] Kaleigh Hutton MD [address] [facility] [address] [place] [address] 04/13/2025 3:00 PM EST Office Visit [facility] Clinic Medicine Specialties [address], [address] [place] [address] Kye Trujillo MD [address] [place] [address] documented as of this encounter [...] documented as of this encounter Care Teams Sporting Goods Sales Associate Relationship Specialty Start Date End Date Delmi Robledo MD [address] [place] [address] [place] [address] PCP - General 02/09/23 Promise Lopez RN [facility] Nurse Navigator Hematology and Oncology 05/22/24 Vasu Scruggs MD [address] [place] [address] Service Attending Radiation Oncology 05/22/24 documented as of this encounter
--- OUTSIDE RECORDS SUMMARY | 2024-12-16 21:44 | XMS_ITS | Encounter Summary ---
Author Organization Healthcare Address [address] [place] [address] Care Team Providers Care Assistant To The Vice President Name Role Phone Delmi Robledo MD Primary Care Provider [phone] Promise Lopez RN Unavailable Vasu Felipe MD Unavailable Reason for Visit * Reason Comments Resource Navigation Encounter Details Date Type Department Care Team ([facility] Contact Info) Description 12/08/2024 Social Work Psych Oncology [address] [place] [address] Manjula Winkler Social History Tobacco Use Types Packs/Day Years [...] any time in the past 12 m [facility], were you homeless or living in a skilled nursing (including now)? No 08/19/2024 CAGE ASSESSMENT Answer [...] first t mario alberto in the morning (EYE-CUSTOMER SUPPORT REPRESENTATIVE) to steady your nerves or to get [...] encounter Miscellaneous Notes * Progress Notes - Manjula Winkler - 12/08/2024 11:36 AM EDT Encounter Type: In Person Visit Disease Status: Established Patient Clinic Location: [facility] Disease Type: Head & Neck Services Provided: Gift / Gas Card Gift Card Type: ACS Transportation Juan Gift Card Amount: 25 Intervention Level: 2 Units (1 unit = 15 minutes): 1 Narrative: STORAGE SOLUTIONS ARCHITECT met with pt prior to appt and provided pt with 25.00 ACS card. Pt stated he has been driving himself and no longer utilizes medicaid transportation. Pt also stated he is likely to be up here morefrequently for tx. STORAGE SOLUTIONS ARCHITECT educated pt on availability of fuel cards and informed pt that STORAGE SOLUTIONS ARCHITECT able to provide pt with assistance as long as it is available. Pt voiced understanding and appreciation for the assistance. No further needs identified. STORAGE SOLUTIONS ARCHITECT to remain available for any ongoing needs or support. Manjula Winkler, THERMODYNAMICS PROFESSOR, STORAGE SOLUTIONS ARCHITECT [facility] Psych-Oncology Services documented in this encounter Plan of Treatment Upcoming Encounters Date Type Department Care Team ([facility] st Contact Info) Description 12/29/2024 8:30 AM EDT Office Visit [facility] Voice [address] [facility], 2nd [place] [address] Mariza Jenkins MS CCC-LABOR/EXCAVATOR 12/29/2024 9:30 AM EDT Office Visit [facility] Head, Neck & Respiratory [address] [facility], [address] [place] [address] Rambo Vargas MD [address] [facility] [address] [place] [address] 01/19/2025 2:00 PM EDT Clinical Support [facility] Head, Neck & Respiratory [address] [facility], [address] [place] [address] 01/19/2025 3:00 PM EDT Appointment P[facility] G Radiology [address] [place] [phone] 01/22/2025 2:00 PM EDT Appointment [facility] CC Radiation [id number] [place] [address] Vasu Scruggs MD [address] [facility] [address] [place] [address] 01/22/2025 3:50 PM EDT Office Visit [facility] Head[facility] Neck [facility] Respiratory [address] [place] [address] Rosemarie Hidalgo MD [address] [facility] [address] [place] [address] 02/20/2025 11:30 AM EST Office Visit [facility] Ot[facility]ology [address], [address] [place] [address] Kaleigh Hutton MD [address] [facility] [address] [place] [address] 04/13/2025 3:00 PM EST Office Visit [facility] Medicine Specialties [address], [address] [place] [address] Kye Trujillo MD [address] [facility] [address] [place] [address] documented as of this encounter Visit Diagnoses [...] documented as of this encounter Care Teams Assistant To The Vice President Relationship Specialty Start Date End Date Delmi Robledo MD [address] [place] [address] PCP - General 02/09/23 Promise Lopez RN [facility] Nurse Navigator Hematology and Oncology 05/22/24 Vasu Scruggs MD [address] [phone] Service Attending Radiation Oncology 05/22/24 documented as of this encounter
--- OUTSIDE RECORDS SUMMARY | 2024-12-16 21:44 | XMS_ITS | Clinical Summary ---
Author Organization [facility] Address [address] [place] [address] Care Team Providers Care Component Assembler Supervisor Name Role Phone Delmi Robledo MD Primary Care Provider [phone] Promise Lopez RN Unavailable UnaVasu De Paz MD Unavailable Allergies Active Allergy Reactions Criticality Noted Date Comments Cyclobenzaprine Hives,Itching,Rash Medium 01/25/2011 Propoxyphene Rash Medium 10/26/2021 Medications Eliquis 5 MG tablet Take 1 tablet (5 mg) by mouth in the morning and 1 tablet (5 mg) in the evening. 03/10/20 24 025 Active famotidine (Pepcid) 20 MG tablet Take 1 tablet (20 mg) by mouth in the morning. Active metoprolol tartrate (Lopressor) 25 MG tablet Take 1 tablet (25 mg) by mouth in the morning and 1 tablet (25 mg) in the evening. 12/17/19 24 Active verapamil SR (Calan-SR) 120 MG ER tablet Take 1 tablet (120 mg) by mouth 1 (one) time each day. 11/27/19 24 Active pantoprazole (Protonix) 40 MG EC tablet Take 1 tablet (40 mg) by mouth daily before breakfast. Do not crush, chew, or split. Active prochlorperazine (Compazine) 10 MG tabletIndications: Right tonsillar squamous cell carcinoma Take 1 tablet (10 mg) by mouth every 6 hours as needed for nausea or vomiting. 30 tablet 3 06/10/19 25 Active Amino Acids-Protein Hydrolys (Pro-Stat 101) liquid 30 mL by Per PEG Tube route in the morning and 30 mL before bedtime. 1800 mL 5 06/24/19 25 025 Active lidocaine (Xylocaine) 2 % solution Take 5 mL by mouth 4 (four) times a day as needed for mild pain. 200 mL 1 07/01/19 25 Active varenicline (Chantix Continuing Month Huber) 1 MG tablet Take 1 tablet by mouth in the morning and 1 tablet before bedtime. Take with full glass of water. 60 tablet 3 07/01/19 25 Active sulfamethoxazole-t rimethoprim (Bactrim DS) 800-160 MG tablet Take 1 tablet by mouth in the morning and 1 tablet before bedtime. 07/04/19 25 Active mupirocin (Bactroban) 2 % ointment Apply 1 Application topically in the morning and 1 Application before bedtime. 07/04/19 25 Active furosemide (Lasix) 20 MG tablet Take 1 tablet by mouth daily in the mornings for 5-7 days. 10 tablet 07/22/19 25 Active Guar Gum (Nutrisource Fiber) powder 4 g by Per PEG Tube route daily. 120 g 5 07/25/19 25 025 Active oxyCODONE (Roxicodone) 10 MG immediate release tablet Take 1-2 tablets by mouth every 4 hours as needed for severe pain (g89.3). 180 tablet 07/29/19 25 Active Boost VHC (Boost) VHC liquid Take 237 mL by mouth 2 times a day. 05501 mL 5 09/09/19 25 025 Active ondansetron ODT (Zofran-ODT) 8 MG disintegrating tablet Dissolve 1 tablet on the tongue every 8 hours as needed for nausea or vomiting. 30 tablet 3 09/09/19 25 Active pregabalin (Lyrica) 100 MG capsule every 8 hours. 09/23/19 25 Active docusate sodium (Colace) 100 MG capsule Take 1 capsule by mouth 3 times a day as needed for constipation. For constipation. 90 capsule 2 10/30/19 25 Active moisturizing mouth (Biotene Oral Dry Mouth) solution Use 1 spray as needed for dry mouth 44.3 mL 11 12/16/19 25 Active moisturizing mouth (Biotene Oral Dry Mouth) solution Use 1 spray as needed for dry mouth 44.3 mL 11/18/19 025 Discontin ued(Reord er) Active Problems Problem Noted Date Diagnosed Date [...] Follow up in: three months History of NC (myocardial infarction) 11/22/2022 Overview (05/22/2024): Followed by Contracts Specialist, last seen 11/13/22 Last Assessment & Plan: [...] Overview (05/22/2024): Wears compression stocking; followed by rn urology Last Assessment & Plan: Condition: stable Follow up in: three months SOB (shortness of breath) 11/22/2022 Overview (05/22/2024): Referred to pulmonary Last Assessment & Plan: Condition: stable Follow up in: three months Peripheral artery disease 2022 Anxiety 02/03/2022 Chronic cough 02/03/2022 Chronic diarrhea 02/03/2022 Osteoporosis 02/03/2022 Overview (05/22/2024): Followed by Physical therapist in [place], [place] [facility] As well as pain management- last received [...] seek urgent/emergent care including calling Suicide Hotline (274 or ) or [employer]. Follow up in three months with PCP [...] Signed by Rosemarie Hidalgo MD on 05/22/2024 Resolved Problems Problem Noted Date Diagnosed Date Resolved Date Chronic bronchitis with COPD (chronic obstructive pulmonary disease) 01/01/2014 Encounters Date Type Department Care Team Description 12/15/2024 Refill [facility] [address] [facility], [address] [place] [address] Promise Lopez RN 12/08/2024 11:00 AM EDT Office Visit [facility] Voice [address] [facility], [address] [place] [address] Andrés Munguia Dysphagia, oropharyngeal (Primary Dx) 12/08/2024 Orders Only [facility] Res[facility] [address] [phone] Rmabo Vargas MD Lymphedema (Primary Dx) 12/08/2024 Social Work Psych Oncology [address] [place] [phone] MelanieJaja gamblelon Marquez 12/08/2024 Travel 12/05/2024 Telephone [facility] [address] [phone] Ann Mcginnis 11/18/2024 Telephone [facility] [address] [phone] Ann Mcginnis 11/17/2024 2:40 PM EDT Consult [facility] Otolaryngology [address], [address]rd [place] [phone] Kaleigh Hutton MD Myers's esophagus with dysplasia (Primary Dx) 11/17/2024 Travel 11/17/2024 Telephone [facility] Respiratory [address] [phone] Ann Mcginnis 11/17/2024 Telephone [facility] [address] [phone] Ann Mcginnis 11/12/2024 Telephone [facility] Res[facility] [address] [phone] Ann Mcginnis 11/10/2024 Telephone Psych Oncology [address] [place] [phone] Radha Coleman, RACHEAL 11/04/2024 Orders Only [facility] Res[facility] [address] [phone] Rambo Vargas MD Myers's esophagus without dysplasia (Primary Dx) 10/29/2024 2:17 PM EDT - 10/29/2024 11:59 PM EDT Hospital Encounter [facility] Radiation [address] [facility]. [address] [place] [phone] Maty Lr, CLOUD SYSTEMS ARCHITECT Squamous cell carcinoma of oropharynx (Primary Dx) Discharge Disposition: Still a Patient 10/29/2024 Refill [facility] [address] [phone] Daniel Dotson, CLOUD SYSTEMS ARCHITECT 10/29/2024 Nutrition [facility] [address] [phone] Rdaha Coleman, RD 10/29/2024 Travel 10/27/2024 10:15 AM EDT Office Visit [facility] [address] [phone] Rambo Vargas MD Squamous cell carcinoma of oropharynx 10/27/2024 Travel 10/24/2024 9:45 AM EDT - 10/24/2024 11:59 PM EDT Hospital Encounter [facility] PET Scan [address] [place] [phone] Discharge Disposition: Home or Self Care 10/24/2024 9:45 AM EDT - 10/24/2024 11:59 PM EDT Hospital Encounter [facility] PET Scan [address] [place] [phone] Right tonsillar squamous cell carcinoma Discharge Disposition: Home or Self Care 10/24/2024 Travel 10/13/2024 Social Work Psych Oncology [address] [place] [phone] Manjula Winkler 10/10/2024 Social Work Psych Oncology [address] [place] [address] Manjula Winkler 10/09/2024 Social Work Psych Oncology [address] [place] [phone] Manjula Winkler 10/08/2024 1:42 PM EDT - 10/08/2024 11:59 PM EDT Hospital Encounter [facility] Radiology [address] [place] [address] Zirlen, Andrés M Dysphagia, oropharyngeal (Primary Dx); Squamous cell carcinoma of oropharynx; Dysphagia, unspecified type Discharge Disposition: Home or Self Care 10/08/2024 Travel 10/08/2024 Social Work Psych Oncology [address] [place] [address] Manjula Winkler 10/08/2024 Telephone Psych Oncology [address] [place] [address] Radah Coleman, RD 10/07/2024 Telephone Psych Oncology [address] [place] [address] Radha Coleman, RD 09/29/2024 Orders Only [facility] [address] [phone] Rosemarie Hidalgo MD 09/26/2024 11:45 AM EDT Office Visit [facility] Res[facility] [address] [phone] Consuelo Anderson MD Right tonsillar squamous cell carcinoma (Primary Dx) 09/26/2024 Social Work Psych Oncology [address] [place] [address] Manjula Winkler 09/26/2024 Refill [facility] Neck [facility] Respiratory [address] [phone] Rosemarie Hidalgo MD Thrush of mouth and esophagus ([facility]/HCC) 09/26/2024 Travel 09/25/2024 Telephone [facility] Neck [facility] Respiratory [address] [phone] Sera Choi RN 09/24/2024 Telephone [facility] Respiratory [address] [phone] Sera Choi, RN 09/19/2024 Telephone [facility] [address] [phone] Rambo Vargas MD from Last 3 Months Immunizations Immunization Administration Dates Next Due Influenza, Unspecified 01/25/2011 Influenza, injectable, quadrivalent, preservativ e free 01/03/2022 Influenza, seasonal, injectable 03/05/2014 Influenza, seasonal, injectable, preservative fr ee 01/25/2011 Tdap 01/09/2016,07/24/2011 Family History Medical History Relation Name Comments Bipolar disorder Brother 1 Hypertension Brother 2 Schizophrenia Brother 3 Diabetes Father Sami Keita Heart attack Father Sami Keita Hypertension Father Sami Keita Lung cancer Father's Brother Cardiac disorder Mother Andreina Colby Diabetes Mother Andreina Colby Hypertension Mother Andreina Colby Cardiac disorder Other 1 Stroke Other 2 Hypertension Other 3 Conversions - Other Other 4 FH: ment al illness Malig Hyperthermia Neg Hx Relation Name Status Comments Brother 1 Brother 2 Brother 3 Father Sami Keita Father's Brother Alive Mother Andreina Colby Other 1 Other 2 Other 3 Other 4 Social History Tobacco Use Types Packs/Day Years [...] any time in the past 12 m [facility], were you homeless or living in a long-term (including now)? No 08/19/2024 CAGE ASSESSMENT Answer [...] first t mario alberto in the morning (EYE-CELEBRITY CHEF ENTREPRENEUR MEDIA PERSONALITY) to steady your nerves or to get [...] not to disclose 2024 4:38 PM EST Last Filed Vital Signs Vital Sign Reading Time Taken Comments Blood Pressure 110/74 11/17/2024 3:01 PM EDT Pulse 91 10/29/2024 2:28 PM EDT Temperature 36.7 C (98 F) 09/26/2024 11:20 AM EDT Respiratory Rate 16 10/29/2024 2:28 PM EDT Oxygen Saturation 96% 10/29/2024 2:28 PM EDT Inhaled Oxygen Concentration - - Weight 93.9 kg (207 lb) 11/17/2024 3:01 PM EDT Height 180.3 cm (5' 11 ) 10/29/2024 2:28 PM EDT Body Mass Index 28.87 10/29/2024 2:28 PM EDT Plan of Treatment Upcoming Encounters Date Type Department Care Team (Late st Contact Info) Description 12/29/2024 8:30 AM EDT Office Visit [facility] Voice [address] [facility], [address] [place] [phone] Mariza Jenkins, MS CCC-MODEL HOME SALES GREETER 12/29/2024 9:30 AM EDT Office Visit [facility] Neck [facility] Respiratory [address] [facility], [address] [place] [phone] Rambo Vargas MD [address] [facility] [address] [place] [address] 01/19/2025 2:00 PM EDT Clinical Support [facility]ck [facility] Respiratory [address] [facility], [address] [place] [phone] 01/19/2025 3:00 PM EDT Appointment [facility] Radiology [address] [place] [phone] 01/22/2025 2:00 PM EDT Appointment [facility] Radiation [address] [facility]. [address] [place] [phone] Vasu Scruggs MD 800 [facility] [address] [place] [phone] 01/22/2025 3:50 PM EDT Office Visit [facility] Head[facility] Neck [facility] Respiratory [address] [facility], [address] [place] [phone] Rosemarie Hidalgo MD 800 [facility] [address] [address] [place] [address] 02/20/2025 11:30 AM EST Office Visit [facility] Otolaryngology [address], [address] [place] [address] Kaleigh Hutton MD [address] [place] [address] 04/13/2025 3:00 PM EST Office Visit [facility] Medicine Specialties [address], [address] [place] [address] Kye Trujillo MD [address] [place] [address] Health Maintenance Due Date Last Done Comments [facility]-Bone Density Scan 1983 [facility]-/Child/Adol SDOH Screenings 1983 [facility]-Varicella Vaccines (1 of 2 - 13+ 2-dose series) 08/20/1996 [facility]-Hepatitis A Vaccines (1 of 2 - Risk 2-dose series) 08/20/2002 [facility]-Hepatitis B Vaccines (1 of 3 - 19+ 3-dose series) 08/20/2002 [facility]-Pneumococcal Vaccine: Pediatrics (0 to 5 Years) and At-Risk Patients (6 to 49 Years) (1 of 2 - PCV) 08/20/2002 [facility]-Zoster Vaccines (1 of 2) 08/20/2002 HPV Vaccines (1 - Risk 3-dose SCDM series) 08/20/2010 [id number] Vaccine (3 - Moderna risk series) 10/08/2020 09/10/2020, 08/10/2020 [facility]-Influenza Vaccine (#1) 12/01/202401/03, 03/05/2014, 01/25/2011, Additional history exists [facility]- SDOH Screenings 02/19/2025 [facility]-Adult SDOH Screenings 02/19/2025 08/19/2024 [facility]-Depression Screening 09/08/2025 09/08/2024, 12/2024 [facility]-DTaP,Tdap,and Td Vaccines (3 - Td or Tdap) 01/08/2026 01/09/2016, 07/24/2011 [facility]-HIV Screening Completed 08/17/2024 [facility]-Hepatitis C Screening Completed 08/17/2024 [facility]-Obesity Intervention Completed 025, 11/17/2024, 10/27/2024, Additional history exists [facility]-HIB Vaccines Aged Out No longer e ligible based on patient's age to complete this topic [facility]-IPV Vaccines Aged Out No longer e ligible based on patient's age to complete this topic [facility]-Rotavirus Vaccines Aged Out No lo nger eligible based on patient's age to complete this topic Medical Devices Implanted Type Area Candle Molder Device Identifier Shelf Expiration Date Model / Serial / Lot Stent Stent Heart Procedures Procedure Name Priority Date/Time Associated Diagnosis Comments PET/CT FDG SKULL BASE TO MID THIGH Routine 10/24/2024 11:34 AM EDT Right tonsillar squamous cell carcinoma FL MODIFIED BARIUM SWALLOW Routine 10/08/2024 3:37 PM EDT Squamous cell carcinoma of oropharynx Dysphagia, unspecified type HEPATITIS C ANTIBODY - ED W/REFLEX TO HCV QUANT PCR STAT 08/17/2024 8:46 PM EDT ED HIV 1/2 ANTIBODY/ANTIGEN SCREEN WITH REFLEX TO HIV I/II DIFFERENTIATION STAT 08/17/2024 8:46 PM EDT from Last 3 Months or Most Recently Relevant to Health Maintenance Results * PET/CT FDG Skull Base To [...] scanner: Siemens Biograph 40 mCT. PET/CT acquisition: Wznctm-ca-udj-thighs, plus magnification (zoomed) neck. Standardized uptake value (SUV): Corrected for body weight only. CT: Low-dose, fnb-caovnb-pedv, without intravenous contrast. TOTAL DLP (Dose Length [...] sides for neck scan. PET/CT scanner: Siemens Maimaibaograph 40 mCT. PET/CT acquisition: Vtpazi-mi-agy-thighs, plus magnification (zoomed)neck. Standardized uptake value (SUV): Corrected for body weight only. CT: Low-dose, khq-eoivhc-mdoc, without intravenous contrast. TOTAL DLP (Dose Length Product): 963.62 mGy.cm mGy cm. COMPARISON/CORRELATION: Compared to F-18 FDG PET/CT 04/23/2024 performed at another facility wherestandardized uptake value (SUV) measurements may not be comparable to [facility] measurements due to tumor biology, incubation period, [...] development of right apical postradiation pneumonitis on [id number] with associated FDG avidity, SUV max of [...] Kiya Clark MD on 10/24/2024 1:56 PM us Maty Lr CLOUD SYSTEMS ARCHITECT IMG NM PROCEDURES Final Resu lt * FL Modified Barium Swallow (10/08/2024 3:37 PM EDT) Anatomical Region Laterality Modality Esophagus, stomach and duodenum Digital Radiography Impressions 10/08/2024 5:12 PM EDT Penetration with cup sips of the thin consistency of contrast material despite compensatory maneuvers, followed by aspiration with sequential sips. No penetration or aspiration with the nectar, pudding, or cracker consistencies of contrast material. Tablet passed without difficulty. Please see separate note by Speech therapy team for dietary recommendations. CRITICAL RESULT: No. COMMUNICATION: Per this written report. By electronically signing this report, I, the attending physician, attest that I have personally reviewed the images/data for the above examination(s) and agree with the final edited report. Drafted by Vidal Jorgensen on 10/08/2024 4:06 PM Final report signed by Riccardo Hensley MD on 10/08/2024 5:12 PM Narrative 10/08/2024 5:12 PM EDT CLINICAL INDICATION: dysphagia TECHNIQUE: Modified barium swallow was performed utilizing video fluoroscopy in conjunction with the Speech Pathology team. The patient ingested barium media of varying consistencies. Fluoroscopy Time: 3.8 minutes. COMPARISON: None. FINDINGS: Swallowing: There is deep penetration to level of the vocal cords with the thin consistency contrast material with compensatory maneuvers, such as chin tuck; this is followed by aspiration of the thin consistency with sequential sips, unchanged with cough between sips. There is no laryngeal penetration or aspiration with the nectar, pudding, or cracker consistencies. A tablet was administered and passed the gastroesophageal junction without difficulty. Procedure Note Riccardo Hensley MD - 10/08/2024 CLINICAL INDICATION: dysphagia TECHNIQUE: Modified barium swallow was performed utilizing video fluoroscopy inconjunction with the Speech Pathology team. The patient ingested bariummedia of varying consistencies. Fluoroscopy Time: 3.8 minutes. COMPARISON: None. FINDINGS: Swallowing: There is deep penetration to level of the vocal cords with thethin consistency contrast material with compensatory maneuvers, such aschin tuck; this is followed by aspiration of the thin consistency withsequential sips, unchanged with cough between sips. There is no laryngealpenetration or aspiration with the nectar, pudding, or crackerconsistencies. A tablet was administered and passed the gastroesophagealjunction without difficulty. IMPRESSION: Penetration with cup sips of the thin consistency of contrast materialdespite compensatory maneuvers, followed by aspiration with sequentialsips. No penetration or aspiration with the nectar, pudding, or crackerconsistencies of contrast material. Tablet passed without difficulty. Please see separate note by Speech therapy team for dietaryrecommendations. CRITICAL RESULT: No. COMMUNICATION: Per this written report. By electronically signing this report, I, the attending physician, attestthat I have personally reviewed the images/data for the aboveexamination(s) and agree with the final edited report. Drafted by Vidal Jorgensen on 10/08/2024 4:06 PM Final report signed by Riccardo Hensley MD on 10/08/2024 5:12 PM Rambo Vargas MD IMG FLUOROSCOPY PROCEDURES Final Result * ED HIV 1/2 Antibody/Antigen Screen w/Reflex to HIV 1/2 Differentiation (08/17/2024 8:46 PM EDT) HIV 1 & 2 Antibody/Antigen Screen Non Reactive Non Reactive 08/17/2024 9:35 PM EDT [facility] Comment:Screening for HIV 1 & 2 antibodies, and P24 antigen is NONREACTIVE. No confirmatory testing is required. Blood Venous blood specimen / Unknown Venipuncture / Unknown 08/17/2024 8:46 PM EDT 08/17/2024 8:55 PM EDT Norma Arias MD LAB BLOOD ORDERABLES Final Re sult [facility] [address] [place] [address] * Hepatitis C Antibody - ED (08/17/2024 8:46 PM EDT) Hepatitis C Antibody Negative Negative 08/17/2024 9:35 PM EDT [facility] Blood Venous blood specimen / Unknown Venipuncture / Unknown 08/17/2024 8:46 PM EDT 08/17/2024 8:55 PM EDT us Norma Arias MD LAB BLOOD ORDERABLES Final Re sult [facility] [address] [place] [address] from Last 3 Months or Most Recently Relevant to Health Maintenance Insurance [employer] [place] Advance Directives * Full Code (Latest Code Status on File) Date Activated Date Inactivated Comments 08/18/2024 5:57 PM 08/19/2024 7:45 PM Question Answer Comments I have reviewed the capacity from the link above and, if needed, have updated to appropriate status: Yes * Full Code Date Activated Date Inactivated Comments 05/29/2024 5:52 PM 05/30/2024 9:41 PM Question Answer Comments Patient has decision-making capacity? Yes Care Teams Component Assembler Supervisor Relationship Specialty Start Date End Date Delmi Robledo MD [address] [place], [place] [address] [address] PCP - General 02/09/23 Promise Lopez, RN [facility] Nurse Navigator Hematology and Oncology 05/22/24 Vasu Scruggs MD [address] [place] [phone] Service Attending Radiation Oncology 05/22/24
--- OUTSIDE RECORDS SUMMARY | 2024-12-16 21:45 | XMS_ITS | Encounter Summary ---
Author Organization Healthcare Address [address] [id number] Care Team Providers Care Bung Sewer Name Role Phone Delmi Robledo MD Primary Care Provider [phone] Promise Lopez RN Unavailable Vasu Felipe MD Unavailable Sintia Lester COOKER SYRUP Unavailable Unavailable Encounter Details Date Type Department Care Team (Late Contact Info) Description 01/08/2023 Orders Only External Location [address] [place] [phone] Provider, External Social History Tobacco Use Types [...] Upcoming Encounters Date Type Department Care Team ([facility] Contact Info) Description 12/29/2024 8:30 AM EDT Office Visit [facility] Voice 800 [facility] [address] [place] [phone] Mariza Jenkins MS CCC-INFORMATION SYSTEMS AUDITOR 12/29/2024 9:30 AM EDT Office Visit [facility] Respiratory [address] [phone] Rambo Vargas MD [address] [facility] [address] [place] [phone] 01/19/2025 2:00 PM EDT Clinical Support [facility]ck [facility] Respiratory 800 [facility], [address]nd [place] [phone] 01/19/2025 3:00 PM EDT Appointment PAV G Radiology [address] [place] [phone] 01/22/2025 2:00 PM EDT Appointment [facility] CC Radiation [address] [facility]. [address] [place] [phone] Vasu Scruggs MD [address] [facility] [address] [place] [phone] 01/22/2025 3:50 PM EDT Office Visit [facility] Res[facility] [address] [facility], [address]nd [place] [phone] Rosemarie Hidalgo MD 800 [facility] [address] [place] [address] 02/20/2025 11:30 AM EST Office Visit [facility] Otol[facility]ology [address] [place] [address] Kaleigh Hutton MD [address] [place] [address] 04/13/2025 3:00 PM EST Office Visit [facility] Medicine Specialties [address] [place] [address] Kye Trujillo MD [address] [facility] [address] [place] [address] documented as of this encounter Procedures Procedure Name Priority Date/Time Associated Diagnosis Comments CT NEURO OUTSIDE IMAGES 01/08/2023 4:14 PM EDT documented in this encounter Results * CT NEURO OUTSIDE IMAGES (01/08/2023 4:14 PM EDT) Anatomical Region Laterality Modality Computed Tomogra phy 01/08/2023 4:14 PM EDT us External Provider IMG CT PROCEDURES Final Result documented in this encounter Visit Diagnoses Not on filedocumented in this encounter Care Teams Bung Sewer Relationship Specialty Start Date End Date Delmi Robledo MD [address] [place] [address] PCP - General 02/09/23 Promise Lopez RN [facility] Nurse Navigator Hematology and Oncology 05/22/24 Vasu Scruggs MD 800 [facility] [address] [place] [address] Service Attending Radiation Oncology 05/22/24 Sintia eLster LPN VALUE-[place] [place] [address] [facility] Nurse 08/20/24 09/19/24 documented as of this encounter
--- OUTSIDE RECORDS SUMMARY | 2024-12-16 21:45 | XMS_ITS | Encounter Summary ---
Author Organization Healthcare Address [address] [id number] Care Team Providers Care Outside Property Agent Name Role Phone Delmi Robledo MD Primary Care Provider [phone] Promise Lopez RN Unavailable Vasu Felipe MD Unavailable Sintia Lester PRINCIPAL SYSTEM SOFTWARE ENGINEER Unavailable Unavailable Encounter Details Date Type Department Care Team (Late Contact Info) Description 12/04/2019 Orders Only External Location 800 [place] [address] Provider, External Social History Tobacco Use Types Packs/Day Years Used Date Smoking Tobacco: Never Assessed Sex and Gender Information Value Date Recorded Sex Assigned at Male 05/02/2024 7:53 AM EST Legal Sex Male 8:27 PM EDT Gender Identity Not on file Sexual Orientation Choose not to disclose 2024 4:38 PM EST documented as of this encounter Plan of Treatment Upcoming Encounters Date Type Department Care Team (Late Contact Info) Description 12/29/2024 8:30 AM EDT Office Visit [facility] Voice 800 [facility], 2nd [place] [address] Mariza Jenkins MS CCC-NETWORK OPERATIONS CENTER TECHNICIAN 12/29/2024 9:30 AM EDT Office Visit [facility] Ne[facility] Respiratory [address] [address] Rambo Vargas MD [address] [facility] [address] [place] [address] 01/19/2025 2:00 PM EDT Clinical Support [facility] Head[facility] Neck & Respiratory [address] , 2nd [place] [address] 01/19/2025 3:00 PM EDT Appointment P[facility] G Radiology [address] [place] [address] 01/22/2025 2:00 PM EDT Appointment [facility] Radiation [id number] [place] [address] Vasu Scruggs MD [address] [place] [address] 01/22/2025 3:50 PM EDT Office Visit [facility] Head[facility] Neck [facility] Respiratory [address] , 2nd [place] [address] Rosemarie Hidalgo MD [address] [place] [address] 02/20/2025 11:30 AM EST [facility] [address], 3rd [place] [address] Kaleigh Hutton MD [address] [place] [address] 04/13/2025 3:00 PM EST [facility] Visit [facility] Medicine Specialties [address], 2nd [place] [address] Kye Trujillo MD [address] [place] [address] documented as of this encounter Procedures Procedure Name Priority Date/Time Associated Diagnosis Comments CT MSK OUTSIDE IMAGES 12/04/2019 3:42 PM EDT documented in this encounter Results * CT MSK OUTSIDE IMAGES (12/04/2019 3:42 PM EDT) Anatomical Region Laterality Modality Computed Tomogra phy 12/04/2019 3:42 PM EDT us External Provider IMG CT PROCEDURES Final Result documented in this encounter Visit Diagnoses Not on filedocumented in this encounter Care Teams Outside Property Agent Relationship Specialty Start Date End Date Delmi Robledo MD [address] [place] [address] PCP - General 02/09/23 Proimse Lopez RN [facility] Nurse Navigator Hematology and Oncology 05/22/24 Vasu Scruggs MD 800 [facility] [address] [place] [address] Service Attending Radiation Oncology 05/22/24 Sintia Lester LPN VALUE-[place] [address] TCM Nurse 08/20/24 09/19/24 documented as of this encounter
--- OUTSIDE RECORDS SUMMARY | 2024-12-16 21:45 | XMS_ITS | Encounter Summary ---
Author Organization Healthcare Address [address] [id number] Care Team Providers Care Regional Extension Service Specialist Name Role Phone Delmi Robledo MD Primary Care Provider [phone] Promise Lopez RN Unavailable Vasu Felipe MD Unavailable Encounter Details Date Type Department Care Team (Latest Contact Info) Description 10/27/2024 Travel Social History Tobacco Use Types Packs/Day [...] time in the past 12 m [facility], were you homeless or living [...] first t mario alberto in the morning (EYE-DIRECTOR OF SCOUT WORK) to steady your nerves or to get [...] EDT Office Visit [facility] Voice 800 [facility], 2nd [place] [address] Gregory Mariza Prashanth, MS CCC-BIOLOGY SPECIMEN TECHNICIAN 12/29/2024 9:30 AM EDT Office Visit [facility] Head[facility] Neck & Respiratory 800 [facility], 2nd [place] [address] Rambo Vargas MD [address] [facility] [address] [place] [address] 01/19/2025 2:00 PM EDT Clinical Support [facility] Head, Neck & Respiratory 800 [facility] 2nd [place] [address] 01/19/2025 3:00 PM EDT Appointment P[facility] G Radiology [address] [place] [address] 01/22/2025 2:00 PM EDT Appointment P[facility] CC Radiation 800 [facility]. [id number] [place] [address] Vasu Scruggs MD 800 [facility] [address] [place] [address] 01/22/2025 3:50 PM EDT Office Visit [facility] Head[facility] Neck & Respiratory 800 [facility], [address]nd [place] [address] Rosemarie Hidalgo MD 800 [facility] [address] [place] [address] 02/20/2025 11:30 AM EST [facility] [address], 3rd [place] [address] Kaleigh Hutton MD [address] [facility] [address] [place] [address] 04/13/2025 3:00 PM EST [facility] [address], 2nd [place] [address] Kye Trujillo MD [address] [place] [address] documented as of this encounter [...] documented as of this encounter Care Teams Regional Extension Service Specialist Relationship Specialty Start Date End Date Delmi Robledo MD [address] [place] [address] [place] [address] PCP - General 02/09/23 Promise Lopez RN [facility] Nurse Navigator Hematology and Oncology 05/22/24 Vasu Scruggs MD [address] [place] [address] Service Attending Radiation Oncology 05/22/24 documented as of this encounter
--- OUTSIDE RECORDS SUMMARY | 2024-12-16 21:45 | XMS_ITS | Encounter Summary ---
Author Organization Healthcare Address [address] [id number] Care Team Providers Care Commercial Appraiser Name Role Phone Delmi Robledo MD Primary Care Provider [phone] Promise Lopez RN Unavailable Vasu Felipe MD Unavailable Sintia Lester HEATER ENGINEER HELPER Unavailable Unavailable Encounter Details Date Type Department Care Team (Late Contact Info) Description 01/08/2023 Orders Only External Location 800 [place] [address] Provider, External Social History Tobacco Use Types [...] Upcoming Encounters Date Type Department Care Team ([facility] Contact Info) Description 12/29/2024 8:30 AM EDT Office Visit [facility] Voice 800 [facility] 2nd [place] [address] Mariza Jenkins MS CCC-SAMPLE CARD MAKER 12/29/2024 9:30 AM EDT Office Visit [facility] Respiratory [address] [address] Rambo Vargas MD [address] [facility] [address] [place] [address] 01/19/2025 2:00 PM EDT Clinical Support [facility] Head[facility] Neck & Respiratory 800 [facility], 2nd [place] [address] 01/19/2025 3:00 PM EDT Appointment P[facility] G Radiology [address] [place] [address] 01/22/2025 2:00 PM EDT Appointment [facility] CC Radiation 800 [facility]. [id number] [place] [address] Vasu Scruggs MD 800 [facility] [address] [place] [address] 01/22/2025 3:50 PM EDT Office Visit [facility] Head[facility] Neck & Respiratory 800 [facility], 2nd [place] [address] Rosemarie Hidalgo MD 800 [facility] [address] [place] [address] 02/20/2025 11:30 AM EST Office Visit [facility] Otolaryngology [address], 3rd [place] [address] Kaleigh Hutton MD [address] [facility] [address] [place] [address] 04/13/2025 3:00 PM EST Office Visit [facility] Medicine Specialties [address], [address] [place] [address] Kye Trujillo MD [address] [facility] [address] [place] [address] documented as of this encounter Procedures Procedure Name Priority Date/Time Associated Diagnosis Comments XR OUTSIDE IMAGES 01/08/2023 3:15 PM EDT documented in this encounter Results * XR OUTSIDE IMAGES (01/08/2023 3:15 PM EDT) Anatomical Region Laterality Modality Radiographic Reanna ging 01/08/2023 3:15 PM EDT us External Provider IMG XR PROCEDURES Final Result documented in this encounter Visit Diagnoses Not on filedocumented in this encounter Care Teams Commercial Appraiser Relationship Specialty Start Date End Date Delmi Robledo MD [address] [place] [address] PCP - General 02/09/23 Promise Lopez, RN [facility] Nurse Navigator Hematology and Oncology 05/22/24 Vasu Scruggs MD [id number] [place] [address] Service Attending Radiation Oncology 05/22/24 Sintia Lester LPN VALUE-[place] [address] TCM Nurse 08/20/24 09/19/24 documented as of this encounter
--- OUTSIDE RECORDS SUMMARY | 2024-12-16 21:45 | XMS_ITS | Encounter Summary ---
Author Organization Healthcare Address [address] [id number] Care Team Providers Care Rail Equipment Operator Name Role Phone Delmi Robledo MD Primary Care Provider [phone] Promise Lopez RN Unavailable Vasu Felipe MD Unavailable Sintia Lester HALL MONITOR Unavailable Unavailable Encounter Details Date Type Department Care Team (Late Contact Info) Description 08/04/2022 Orders Only External Location 800 [place] [address] Provider, External Social History Tobacco Use Types [...] Upcoming Encounters Date Type Department Care Team ([facility] Contact Info) Description 12/29/2024 8:30 AM EDT Office Visit [facility] CC Voice 800 [facility] 2nd [place] [address] Mariza Jenkins MS CCC-HOSPITAL RECRUITER 12/29/2024 9:30 AM EDT Office Visit [facility] Head[facility] Neck [facility] Respiratory [address] [address] Rambo Vargas MD [address] [facility] [address] [place] [address] 01/19/2025 2:00 PM EDT Clinical Support [facility] Head, Neck & Respiratory 800 [facility], 2nd [place] [address] 01/19/2025 3:00 PM EDT Appointment P[facility] G Radiology [address] [place] [address] 01/22/2025 2:00 PM EDT Appointment [facility] CC Radiation [id number] [place] [address] Vasu Scruggs MD 800 [facility] [address] [place] [address] 01/22/2025 3:50 PM EDT Office Visit [facility] Head[facility] Neck & Respiratory 800 [facility], 2nd [place] [address] Rosemarie Hidalgo MD 800 [facility] [address] [place] [address] 02/20/2025 11:30 AM EST Office Visit [facility] Otolaryngology [address], 3rd [place] [address] Kaleigh Hutton MD [address] [place] [address] 04/13/2025 3:00 PM EST Office Visit [facility] Medicine Specialties [address], 2nd [place] [address] Kye Trujillo MD [address] [facility] [address] [place] [address] documented as of this encounter Procedures Procedure Name Priority Date/Time Associated Diagnosis Comments MR NEURO OUTSIDE IMAGES 08/04/2022 8:27 AM EDT documented in this encounter Results * MR NEURO OUTSIDE IMAGES (08/04/2022 8:27 AM EDT) Anatomical Region Laterality Modality Magnetic Resonan ce 08/04/2022 8:27 AM EDT us External Provider IMG MRI PROCEDURES Final Resul t documented in this encounter Visit Diagnoses Not on filedocumented in this encounter Care Teams Rail Equipment Operator Relationship Specialty Start Date End Date Delmi Robledo MD [address] [place] [address] PCP - General 02/09/23 Promise Lopez RN [facility] Nurse Navigator Hematology and Oncology 05/22/24 Vasu Scruggs MD 800 [facility] [address] [place] [address] Service Attending Radiation Oncology 05/22/24 Sintia Lester LPN VALUE-BASED [place] [address] TCM Nurse 08/20/24 09/19/24 documented as of this encounter
--- OUTSIDE RECORDS SUMMARY | 2024-12-16 21:45 | XMS_ITS | Encounter Summary ---
Author Organization Healthcare Address [address] [id number] Care Team Providers Care Sodium Chlorite Operator Name Role Phone Delmi Robledo MD Primary Care Provider [phone] Promise Lopez RN Unavailable Vasu Felipe MD Unavailable Sintia Lester CHARACTER IMPERSONATOR Unavailable Unavailable Encounter Details Date Type Department Care Team (Late Contact Info) Description 01/08/2023 Orders Only External Location 800 [place] [address] Provider, External Social History Tobacco Use Types [...] Upcoming Encounters Date Type Department Care Team ([facility] Contact Info) Description 12/29/2024 8:30 AM EDT Office Visit [facility] Voice 800 [facility] 2nd [place] [address] Mariza Jenkins MS CCC-SHOE REPAIRER HELPER 12/29/2024 9:30 AM EDT Office Visit [facility] Head[facility] Neck & Respiratory [address] [address] Rambo Vargas MD [address] [facility] [address] [place] [address] 01/19/2025 2:00 PM EDT Clinical Support [facility] Head, Neck & Respiratory 800 [facility], 2nd [place] [address] 01/19/2025 3:00 PM EDT Appointment PAV G Radiology [address] [place] [address] 01/22/2025 2:00 PM EDT Appointment PAV CC Radiation 800 [facility]. [id number] [place] [address] Vasu Scruggs MD 800 [facility] [address] [place] [address] 01/22/2025 3:50 PM EDT Office Visit [facility] Head[facility] Neck & Respiratory 800 [facility], 2nd [place] [address] Rosemarie Hidalgo MD 800 [facility] [address] [place] [address] 02/20/2025 11:30 AM EST Office Visit [facility] [address], 3rd [place] [address] Kaleigh Hutton MD [address] [place] [address] 04/13/2025 3:00 PM EST Office Visit [facility] Medicine [facility] [address], [address]nd [place] [address] Kye Trujillo MD [address] [facility] [address] [place] [address] documented as of this encounter Procedures Procedure Name Priority Date/Time Associated Diagnosis Comments CT NEURO OUTSIDE IMAGES 01/08/2023 4:12 PM EDT documented in this encounter Results * CT NEURO OUTSIDE IMAGES (01/08/2023 4:12 PM EDT) Anatomical Region Laterality Modality Computed Tomogra phy 01/08/2023 4:12 PM EDT us External Provider IMG CT PROCEDURES Final Result documented in this encounter Visit Diagnoses Not on filedocumented in this encounter Care Teams Sodium Chlorite Operator Relationship Specialty Start Date End Date Delmi Robledo MD [address] [place] [address] PCP - General 02/09/23 Promise Lopez RN [facility] Nurse Navigator Hematology and Oncology 05/22/24 Vasu Scruggs MD 800 [facility] [address] [place] [address] Service Attending Radiation Oncology 05/22/24 Sintia Lester LPN VALUE-[place] [address] [facility] Nurse 08/20/24 09/19/24 documented as of this encounter
--- OUTSIDE RECORDS SUMMARY | 2024-12-16 21:45 | XMS_ITS | Encounter Summary ---
Author Organization Healthcare Address [address] [id number] Care Team Providers Care Production Control Coordinator Name Role Phone Delmi Robledo MD Primary Care Provider [phone] Promise Lopez RN Unavailable Vasu Felipe MD Unavailable Sintia Lester SMUDGER Unavailable Unavailable Reason for Visit * Reason Comments Med Refill Encounter Details Date Type Department Care Team ([facility] st Contact Info) Description 08/27/2024 Refill [facility] Head[facility] Neck & Respiratory 800 [facility], 2nd [place] [address] Rosemarie Hidalgo MD 800 [facility] [address] [place] [address] Thrush of mouth and esophagus (CMS/HCC) Social History Tobacco Use Types Packs/Day Years [...] medical care, and heating? Somewhat hard 08/19/2024 Hunger Vital Sign Answer Date Recorded Within [...] things needed for daily living? No 08/19/2024 Housing Stability Vital Sign Answer Mario e Recorded In the last 12 months, was t here a time when you were not able to pay the mortgage or rent on time? No 08/19/2024 In the past 12 months, how m any times have you moved where you were living? 0 08/19/2024 At any time in the past 12 m [facility], were you homeless or living [...] first t mario alberto in the morning (EYE-RN CARDIAC REHAB) to steady your nerves or to get rid of a hangover? 0 05/29/2024 CAGE Questionnaire Score 0 025 Utilities Answer Date Recorded In the past 12 months has th e Jun Group, gas, oil, or water company threatened to [...] EDT Office Visit P[facility] CC Voice 800 [facility], [address]nd [place] [address] Mariza Jenkins, MS CCC-ELECTRICIAN OFFICE 12/29/2024 9:30 AM EDT Office Visit [facility] Neck [facility] Respiratory 800 [facility], 2nd [place] [address] Rambo Vargas MD [address] [facility] [address] [place] [address] 01/19/2025 2:00 PM EDT Clinical Support [facility] Head[facility] Neck & Respiratory 800 [facility], [address] [place] [address] 01/19/2025 3:00 PM EDT Appointment PAV G Radiology [address] [place] [address] 01/22/2025 2:00 PM EDT Appointment [facility] CC Radiation 800 [facility]. [id number] [place] [address] Vasu Scruggs MD 800 [facility] [address] [place] [address] 01/22/2025 3:50 PM EDT Office Visit [facility] Head[facility] Neck & Respiratory 800 [facility], [address]nd [place] [address] Rosemarie Hidalgo MD 800 [facility] Maria [facility]isa [facility] [address] [place] [address] 02/20/2025 11:30 AM EST Office Visit [facility] Otolaryngology [address], 3rd [place] [address] Kaleigh Hutton MD [address] [place] [address] 04/13/2025 3:00 PM EST Office Visit [facility] Medicine Specialties [address], [address]nd [place] [address] Kye Trujillo MD [address] [facility] [address] [place] [address] documented as of this encounter Visit Diagnoses Diagnosis Thrush of mouth and esophagus (CMS/HCC) Candidiasis of the esophagus documented in this encounter Additional Health Concerns Assessment Noted Time A fall risk assessment has been complete d for the patient 07/28/2024 7:42 AM EDT A Body Mass Index follow-up plan has been documented for the patient 08/19/2024 5:16 PM EDT documented as of this encounter Care Teams Production Control Coordinator Relationship Specialty Start Date End Date Delmi Robledo MD [address] [place] [address] [place] [address] PCP - General 02/09/23 Promise Lopez RN [facility] Nurse Navigator Hematology and Oncology 05/22/24 Vasu Scruggs MD [address] [place] [address] Service Attending Radiation Oncology 05/22/24 Sintia Lester LPN VALUE-[place] [address] TCM Nurse 08/20/24 09/19/24 documented as of this encounter
--- OUTSIDE RECORDS SUMMARY | 2024-12-16 21:45 | XMS_ITS | Encounter Summary ---
Author Organization Healthcare Address [address] [id number] Care Team Providers Care Separator Operator Name Role Phone Delmi Robledo MD Primary Care Provider [phone] Promise Lopez RN Unavailable Vasu Felipe MD Unavailable Sintia Lester ER REGISTRAR Unavailable Unavailable Encounter Details Date Type Department Care Team (Late Contact Info) Description 11/02/2022 Orders Only External Location 800 [place] [address] Provider, External Social History Tobacco Use Types [...] Upcoming Encounters Date Type Department Care Team ([facility] Contact Info) Description 12/29/2024 8:30 AM EDT Office Visit [facility] CC Voice 800 [facility] 2nd [place] [address] Mariza Jenkins MS CCC-[employer] BOATMAN 12/29/2024 9:30 AM EDT Office Visit [facility] Respiratory [address] [phone] Rambo Vargas MD [address] [facility] [address] [place] [address] 01/19/2025 2:00 PM EDT Clinical Support [facility] Head, Neck & Respiratory 800 [facility], 2nd [place] [address] 01/19/2025 3:00 PM EDT Appointment PAV G Radiology [address] [place] [address] 01/22/2025 2:00 PM EDT Appointment P[facility] CC Radiation 800 [facility]. [id number] [place] [address] Vasu Scruggs MD 800 [facility] [address] [place] [address] 01/22/2025 3:50 PM EDT Office Visit [facility] Neck [facility] Respiratory 800 [facility], 2nd [place] [address] Rosemarie Hidalgo MD 800 [facility] [address] [place] [address] 02/20/2025 11:30 AM EST Office Visit [facility] Otolaryngology [address], 3rd [place] [address] Kaleigh Hutton MD [address] [facility] [address] [place] [address] 04/13/2025 3:00 PM EST Office Visit [facility] Medicine Specialties [address], 2nd [place] [address] Kye Trujillo MD [address] [facility] [address] [place] [address] documented as of this encounter Procedures Procedure Name Priority Date/Time Associated Diagnosis Comments XR OUTSIDE IMAGES 11/02/2022 7:44 PM EDT documented in this encounter Results * XR OUTSIDE IMAGES (11/02/2022 7:44 PM EDT) Anatomical Region Laterality Modality Radiographic Reanna ging 11/02/2022 7:44 PM EDT us External Provider IMG XR PROCEDURES Final Result documented in this encounter Visit Diagnoses Not on filedocumented in this encounter Care Teams Separator Operator Relationship Specialty Start Date End Date Delmi Robledo MD [address] [place] [address] PCP - General 02/09/23 Promise Lopez, RN [facility] Nurse Navigator Hematology and Oncology 05/22/24 Vasu Scruggs MD [address] [place] [address] Service Attending Radiation Oncology 05/22/24 Sintia Lester LPN VALUE-BASED [place] [address] TCM Nurse 08/20/24 09/19/24 documented as of this encounter
--- OUTSIDE RECORDS SUMMARY | 2024-12-16 21:45 | XMS_ITS | Encounter Summary ---
Author Organization Healthcare Address [address] [id number] Care Team Providers Care Finish Repair Worker Name Role Phone Delmi Robledo MD Primary Care Provider [phone] Promise Lopez RN Unavailable Vasu Felipe MD Unavailable Encounter Details Date Type Department Care Team (Latest Contact Info) Description 10/24/2024 Travel Social History Tobacco Use Types Packs/Day [...] any time in the past 12 m [facility], were you homeless or living in a intermediate (including now)? No 08/19/2024 CAGE ASSESSMENT Answer [...] first t mario alberto in the morning (EYE-GERONTOLOGY AIDE) to steady your nerves or to get [...] EDT Office Visit [facility] 800 [facility], 2nd [place] [address] Gregory Mariza Prashanth, MS CCC-HYDROGEN OPERATOR 12/29/2024 9:30 AM EDT Office Visit [facility] 800 [facility], 2nd [place] [address] Rambo Vargas MD [address] [facility] [address] [place] [address] 01/19/2025 2:00 PM EDT Clinical Support [facility] Respiratory 800 [facility] 2nd [place] [address] 01/19/2025 3:00 PM EDT Appointment [facility] Radiology [address] [place] [address] 01/22/2025 2:00 PM EDT Appointment [facility] Radiation 800 [facility]. [id number] [place] [address] Vasu Scruggs MD 800 [facility] [address] [place] [address] 01/22/2025 3:50 PM EDT Office Visit [facility] 800 [facility], 2nd [place] [address] Rosemarie Hidalgo MD 800 [facility] [address] [place] [address] 02/20/2025 11:30 AM EST [facility] Visit [facility] [address], 3rd [place] [address] Kaleigh Hutton MD [address] [facility] [address] [place] [address] 04/13/2025 3:00 PM EST Office Visit [facility] [address], 2nd [place] [address] Kye Trujillo MD [address] [place] [address] documented as of this encounter [...] documented as of this encounter Care Teams Finish Repair Worker Relationship Specialty Start Date End Date Delmi Robledo MD [address] [place] [address] [place] [address] PCP - General 02/09/23 Promise Lopez RN [facility] Nurse Navigator Hematology and Oncology 05/22/24 Vasu Scruggs MD [address] [place] [address] Service Attending Radiation Oncology 05/22/24 documented as of this encounter
--- OUTSIDE RECORDS SUMMARY | 2024-12-16 21:45 | XMS_ITS | Encounter Summary ---
Author Organization Healthcare Address [address] [id number] Care Team Providers Care Language Therapist Name Role Phone Delmi Robledo MD Primary Care Provider [phone] Promise Lopez RN Unavailable Vasu Felipe MD Unavailable Sintia Lester ORGANIZATIONAL DEVELOPMENT MANAGER Unavailable Unavailable Encounter Details Date Type Department Care Team (Late Contact Info) Description 11/17/2017 Orders Only External Location 800 [place] [address] Provider, External Social History Tobacco Use Types [...] Visit [facility] Voice 800 [facility] 2nd [place] [address] Mariza Jenkins MS CCC-CREEL OPERATOR 12/29/2024 9:30 AM EDT Office Visit [facility] [address] [address] Rambo Vargas MD [address] [facility] [address] [place] [address] 01/19/2025 2:00 PM EDT Clinical Support [facility] Respiratory [address] , 2nd [place] [address] 01/19/2025 3:00 PM EDT Appointment [facility] G Radiology [address] [place] [address] 01/22/2025 2:00 PM EDT Appointment [facility] Radiation [address] [id number] [place] [address] Vasu Scruggs MD [address] [place] [address] 01/22/2025 3:50 PM EDT Office Visit [facility] [address] , 2nd [place] [address] Rosemarie Hidalgo MD [address] [place] [address] 02/20/2025 11:30 AM EST [facility] [address], 3rd [place] [address] Kaleigh Hutton MD [address] [place] [address] 04/13/2025 3:00 PM EST [facility] [address], 2nd [place] [address] Kye Trujillo MD [address] [place] [address] documented as of this encounter Procedures Procedure Name Priority Date/Time Associated Diagnosis Comments CT MSK OUTSIDE IMAGES 11/17/2017 6:45 PM EDT documented in this encounter Results * CT MSK OUTSIDE IMAGES (11/17/2017 6:45 PM EDT) Anatomical Region Laterality Modality Computed Tomogra phy 11/17/2017 6:45 PM EDT us External Provider IMG CT PROCEDURES Final Result documented in this encounter Visit Diagnoses Not on filedocumented in this encounter Care Teams Language Therapist Relationship Specialty Start Date End Date Delmi Robledo MD [address] [place] [address] PCP - General 02/09/23 Promise Lopez RN [facility] Nurse Navigator Hematology and Oncology 05/22/24 Vasu Scruggs MD 800 [facility] [address] [place] [address] Service Attending Radiation Oncology 05/22/24 Sintia Lester LPN VALUE-[place] [address] TCM Nurse 08/20/24 09/19/24 documented as of this encounter
--- OUTSIDE RECORDS SUMMARY | 2024-12-16 21:45 | XMS_ITS | Encounter Summary ---
Author Organization Healthcare Address [address] [id number] Care Team Providers Care Cap Maker Name Role Phone Delmi Robledo MD Primary Care Provider [phone] Promise Lopez RN Unavailable Vasu Felipe MD Unavailable Sintia Lester WELL SERVICES OPERATOR Unavailable Unavailable Encounter Details Date Type Department Care Team (Late Contact Info) Description 10/22/2022 Orders Only External Location 800 [place] [address] Provider, External Social History Tobacco Use Types [...] Upcoming Encounters Date Type Department Care Team ([facility] Contact Info) Description 12/29/2024 8:30 AM EDT Office Visit [facility] Voice 800 [facility] 2nd [place] [address] Mariza Jenkins MS CCC-TRACK SERVICE PERSON 12/29/2024 9:30 AM EDT Office Visit [facility] [address] [phone] Rambo Vargas MD [address] [facility] [address] [place] [address] 01/19/2025 2:00 PM EDT Clinical Support [facility] Head[facility] Neck [facility] Respiratory 800 [facility], 2nd [place] [address] 01/19/2025 3:00 PM EDT Appointment [facility] G Radiology [address] [place] [address] 01/22/2025 2:00 PM EDT Appointment [facility] Radiation 800 [facility]. [id number] [place] [address] Vasu Scruggs MD 800 [facility] [address] [place] [address] 01/22/2025 3:50 PM EDT Office Visit [facility] Res[facility] 800 [facility], 2nd [place] [address] Rosemarie Hidalgo MD 800 [facility] [address] [place] [address] 02/20/2025 11:30 AM EST Office Visit [facility] Ot[facility] [address], 3rd [place] [address] Kaleigh Hutton MD [address] [facility] [address] [place] [address] 04/13/2025 3:00 PM EST Office Visit [facility] [address], 2nd [place] [address] Kye Trujillo MD [address] [facility] [address] [place] [address] documented as of this encounter Procedures Procedure Name Priority Date/Time Associated Diagnosis Comments XR OUTSIDE IMAGES 10/22/2022 11:14 PM EDT documented in this encounter Results * XR OUTSIDE IMAGES (10/22/2022 11:14 PM EDT) Anatomical Region Laterality Modality Radiographic Reanna ging 10/22/2022 11:1 4 PM EDT us External Provider IMG XR PROCEDURES Final Result documented in this encounter Visit Diagnoses Not on filedocumented in this encounter Care Teams Cap Maker Relationship Specialty Start Date End Date Delmi Robledo MD [address] [place] [address] PCP - General 02/09/23 Promise Lopez, RN [facility] Nurse Navigator Hematology and Oncology 05/22/24 Vasu Scruggs MD [id number] [place] [address] Service Attending Radiation Oncology 05/22/24 Sintia Lester LPN VALUE-[place]ED [place] [address] TCM Nurse 08/20/24 09/19/24 documented as of this encounter
--- OUTSIDE RECORDS SUMMARY | 2024-12-16 21:45 | XMS_ITS | Encounter Summary ---
Author Organization Healthcare Address [address] [id number] Care Team Providers Care Oracle Database Analyst Name Role Phone Delmi Robledo MD Primary Care Provider [phone] Promise Lopez RN Unavailable Vasu Felipe MD Unavailable Sintia Lester AUTOCUTTER Unavailable Unavailable Encounter Details Date Type Department Care Team (Late Contact Info) Description 01/08/2023 Orders Only External Location 800 [place] [address] Provider, External Social History Tobacco Use Types [...] Upcoming Encounters Date Type Department Care Team ([facility] Contact Info) Description 12/29/2024 8:30 AM EDT Office Visit [facility] Voice 800 [facility] 2nd [place] [address] Mariza Jenkins MS CCC-CELLOPHANER 12/29/2024 9:30 AM EDT Office Visit [facility] Res[facility] [address] [phone] Rambo Vargas MD [address] [facility] [address] [place] [address] 01/19/2025 2:00 PM EDT Clinical Support [facility] Neck [facility] Respiratory 800 [facility], 2nd [place] [address] 01/19/2025 3:00 PM EDT Appointment P[facility] G Radiology [address] [place] [address] 01/22/2025 2:00 PM EDT Appointment [facility] Radiation 800 [facility]. [id number] [place] [address] Vasu Scruggs MD 800 [facility] [address] [place] [address] 01/22/2025 3:50 PM EDT Office Visit [facility] Neck [facility] Respiratory 800 [facility], 2nd [place] [address] Rosemarie Hidalgo MD 800 [facility] [address] [place] [address] 02/20/2025 11:30 AM EST Office Visit [facility] [address], 3rd [place] [address] Kaleigh Hutton MD [address] [place] [address] 04/13/2025 3:00 PM EST Office [facility] [address], 2nd [place] [address] Kye Trujillo MD [address] [facility] [address] [place] [address] documented as of this encounter [...] on filedocumented in this encounter Care Teams Oracle Database Analyst Relationship Specialty Start Date End Date Delmi Robledo MD [address] [place] [address] PCP - General 02/09/23 Promise Lopez RN [facility] Nurse Navigator Hematology and Oncology 05/22/24 Vasu Scruggs MD 800 [facility] [address] [place] [address] Service Attending Radiation Oncology 05/22/24 Sintia Lester LPN VALUE-[place] [address] [facility] Nurse 08/20/24 09/19/24 documented as of this encounter
--- OUTSIDE RECORDS SUMMARY | 2024-12-16 21:45 | XMS_ITS | Encounter Summary ---
Author Organization Healthcare Address [address] [id number] Care Team Providers Care Director Of Preclinical Research Name Role Phone Delmi Robledo MD Primary Care Provider [phone] Promise Lopez RN Unavailable Vasu Felipe MD Unavailable Sintia Lester SKIDDER DRIVER Unavailable Unavailable Encounter Details Date Type Department Care Team (Late Contact Info) Description 04/23/2024 Orders Only External Location [address] [place] [address] Provider, External Social History Tobacco Use Types Packs/Day Years Used Date Smoking Tobacco: Every Day Sex and Gender Information Value Date Recorded Sex Assigned at Male 05/02/2024 7:53 AM EST Legal Sex Male 8:27 PM EDT Gender Identity Not on file Sexual Orientation Choose not to disclose 2024 4:38 PM EST documented as of this encounter Functional Status * Calculated C-SSRS Risk Score (Lifetime/Recent) Answer Date of Assessment Author No Risk Indicated 04/24/2024 1:50 PM EST Maritza Mcleod * Question Answer Date of Assessment Author 1. Wish to be (Past 1 Month) No 025 1:50 PM EST Maritza Antunez 2. Non-Specific Active Suici jacobo Thoughts (Past 1 Month) No 04/24/2024 1:50 PM EST Natali Antunez 6. Suicidal Behavior (Lifetime) No 1:50 PM EST Maritza Antunez documented as of this encounter Plan of Treatment Upcoming Encounters Date Type Department Care Team (Late Contact Info) Description 12/29/2024 8:30 AM EDT Office Visit [facility] Voice 800 [facility], 2nd [place] [address] Mariza Jenkins, MS CCC-LOLLYPOP MACHINE OPERATOR 12/29/2024 9:30 AM EDT Office Visit [facility] Respiratory [address] , 2nd [place] [address] Rambo Vargas MD [address] [facility] [address] [place] [address] 01/19/2025 2:00 PM EDT Clinical Support [facility] Head[facility] Neck [facility] Respiratory 800 [facility], 2nd [place] [address] 01/19/2025 3:00 PM EDT Appointment P[facility] G Radiology [address] [place] [address] 01/22/2025 2:00 PM EDT Appointment [facility] Radiation 800 [facility]. [id number] [place] [address] Vasu Scruggs MD 800 [facility] [address] [place] [address] 01/22/2025 3:50 PM EDT Office Visit [facility] Head[facility] Neck [facility] Respiratory 800 [facility], 2nd [place] [address] Rosemarie Hidalgo MD [address] [facility] [address] [place] [address] 02/20/2025 11:30 AM EST Office Visit [facility] Ot[facility] [address], 3rd [place] [address] Kaleigh Hutton MD [address] [place] [address] 04/13/2025 3:00 PM EST Office Visit [facility] [address], 2nd [place] [address] Kye Trujillo MD [address] [place] [address] documented as of this encounter Procedures Procedure Name Priority Date/Time Associated Diagnosis Comments PET OUTSIDE IMAGES 04/23/2024 10:58 AM EST documented in this encounter Results * PET OUTSIDE IMAGES (04/23/2024 10:58 AM EST) Anatomical Region Laterality Modality Nuclear Medicine 04/23/2024 10:5 8 AM EST us External Provider IMG NM PROCEDURES Final Result documented in this encounter Visit Diagnoses Not on filedocumented in this encounter Care Teams Director Of Preclinical Research Relationship Specialty Start Date End Date Delmi Robledo MD [address] [place] [address] PCP - General 02/09/23 Promise Lopez, RN [facility] Nurse Navigator Hematology and Oncology 05/22/24 Vasu Scruggs MD 800 [facility] [address] [place] [address] Service Attending Radiation Oncology 05/22/24 Sintia Lester LPN VALUE-BASED [place] [address] TCM Nurse 08/20/24 09/19/24 documented as of this encounter
--- OUTSIDE RECORDS SUMMARY | 2024-12-16 21:45 | XMS_ITS | Encounter Summary ---
Author Organization Healthcare Address [address] [id number] Care Team Providers Care Coil Repair Technician Name Role Phone Delmi Robledo MD Primary Care Provider [phone] Promise Lopez RN Unavailable Vasu Felipe MD Unavailable Encounter Details Date Type Department Care Team (Latest Contact Info) Description 10/29/2024 Travel Social History Tobacco Use Types Packs/Day Years Used Date Smoking Tobacco: Every Day Cigarettes 30.7 Started: 1994 Smokeless Tobacco: Never Alcohol [...] any time in the past [address] [facility], were you homeless or living in a residential (including now)? No 08/19/2024 CAGE ASSESSMENT Answer [...] first t mario alberto in the morning (EYE-PRACTICAL NURSE) to steady your nerves or to get [...] EDT Office Visit [facility] Voice 800 [facility], 2nd [place] [address] Gregory Mariza Prashanth, MS CCC-ICE SCULPTOR 12/29/2024 9:30 AM EDT Office Visit [facility] Neck [facility] Res[facility] 800 [facility], 2nd [place] [address] Rambo Vargas MD [address] [facility] [address] [place] [address] 01/19/2025 2:00 PM EDT Clinical Support [facility] Head[facility] Neck & Respiratory [address] [facility] 2nd [place] [address] 01/19/2025 3:00 PM EDT Appointment P[facility] G Radiology [address] [place] [address] 01/22/2025 2:00 PM EDT Appointment [facility] Radiation 800 [facility]. [id number] [place] [address] Vasu Scruggs MD 800 [facility] [address] [place] [address] 01/22/2025 3:50 PM EDT Office Visit [facility] Neck [facility] Respiratory 800 [facility], [address]nd [place] [address] Rosemarie Hidalgo MD 800 [facility] [address] [place] [address] 02/20/2025 11:30 AM EST Office Visit [facility] [address], 3rd [place] [address] Kaleigh Hutton MD [address] [facility] [address] [place] [address] 04/13/2025 3:00 PM EST Office Visit [facility] [address], [address]nd [place] [address] Kye Trujillo MD [address] [place] [address] documented as of this encounter [...] documented as of this encounter Care Teams Coil Repair Technician Relationship Specialty Start Date End Date Delmi Robledo MD [address] [place] [address] [place] [address] PCP - General 02/09/23 Promise Lopez RN [facility] Nurse Navigator Hematology and Oncology 05/22/24 Vasu Scruggs MD [address] [place] [address] Service Attending Radiation Oncology 05/22/24 documented as of this encounter
--- OUTSIDE RECORDS SUMMARY | 2024-12-16 21:45 | XMS_ITS | Encounter Summary ---
Author Organization Healthcare Address [address] [id number] Care Team Providers Care Senior Sourcing Manager Name Role Phone Delmi Robledo MD Primary Care Provider [phone] Promise Lopez RN Unavailable Vasu Felipe MD Unavailable Sintia Lester PHOTORESIST PRINTER Unavailable Unavailable Encounter Details Date Type Department Care Team (Late Contact Info) Description 10/19/2021 Orders Only External Location 800 [place] [address] Provider, External Social History Tobacco Use Types [...] Upcoming Encounters Date Type Department [facility] Description 12/29/2024 8:30 AM EDT Office Visit [facility] Voice 800 [facility] 2nd [place] [address] Mariza Jenkins MS CCC-MANUFACTURING ENGINEER AUTOMOTIVE 12/29/2024 9:30 AM EDT Office Visit [facility] [address] [phone] Rambo Vargas MD [address] [facility] [address] [place] [address] 01/19/2025 2:00 PM EDT Clinical Support [facility] Neck [facility] Respiratory 800 [facility], 2nd [place] [address] 01/19/2025 3:00 PM EDT Appointment PAV G Radiology [address] [place] [address] 01/22/2025 2:00 PM EDT Appointment [facility] CC Radiation 800 [facility]. [id number] [place] [address] Vasu Scruggs MD 800 [facility] [address] [place] [address] 01/22/2025 3:50 PM EDT Office Visit [facility]ck [facility] Respiratory 800 [facility], 2nd [place] [address] Rosemarie Hidalgo MD 800 [facility] [address] [place] [address] 02/20/2025 11:30 AM EST Office Visit [facility] Otolaryngology [address], [address]rd [place] [address] Kaleigh Hutton MD [address] [place] [address] 04/13/2025 3:00 PM EST Office Visit [facility] Medicine Specialties [address], 2nd [place] [address] Kye Trujillo MD [address] [facility] [address] [place] [address] documented as of this encounter Procedures Procedure Name Priority Date/Time Associated Diagnosis Comments CT THORACIC OUTSIDE IMAGES 10/19/2021 12:52 PM EDT documented in this encounter Results * CT THORACIC OUTSIDE IMAGES (10/19/2021 12:52 PM EDT) Anatomical Region Laterality Modality Computed Tomogra phy 10/19/2021 12:5 2 PM EDT us External Provider IMG CT PROCEDURES Final Result documented in this encounter Visit Diagnoses Not on filedocumented in this encounter Care Teams Senior Sourcing Manager Relationship Specialty Start Date End Date Delmi Robledo MD [address] [place] [address] PCP - General 02/09/23 Promise Lopez RN [facility] Nurse Navigator Hematology and Oncology 05/22/24 Vasu Scruggs MD 800 [facility] [address] [place] [address] Service Attending Radiation Oncology 05/22/24 Sintia Lester LPN VALUE-[place] [address] [facility] Nurse 08/20/24 09/19/24 documented as of this encounter
--- OUTSIDE RECORDS SUMMARY | 2024-12-16 21:45 | XMS_ITS | Encounter Summary ---
Author Organization Healthcare Address [address] [place] [id number] Care Team Providers Care Child And Family Counselor Name Role Phone Delmi Robledo MD Primary Care Provider [phone] Promise Lopez RN Unavailable UnaVasu De Paz MD Unavailable Reason for Visit * Reason Comments Med Refill Encounter Details Date Type Department Care Team ([facility] Contact Info) Description 09/26/2024 Refill Pav CC Head, Neck & Respiratory [address] , [address]nd [place] [address] Rosemarie Hidalgo MD 800 [facility] [address] [place] [address] Thrush of mouth and esophagus [...] were you homeless or living in a penitentiary (including now)? No 08/19/2024 CAGE ASSESSMENT Answer [...] first t mario alberto in the morning (EYE-TECHNICAL PROJECT MANAGER) to steady your nerves or to [...] encounter Miscellaneous Notes * Telephone Encounter - Jon Newton - 09/26/2024 1:44 PM EDT Patient Phone Message Reason for Call: Patient called requesting call back from Dr. Hidalgo's nurse. He states he is going to need his oralthrush meds refilled. Please call back to discuss. Best contact number and optimal time of day to reach caller: Angel: [phone] Note: Please do not reply to this message. Follow-up communication and further actions as a result of this message need to be communicated with the patient directly, if the patient is not active onMyChart. If the patient is active on MyChart, they will receive notification of the communication/outcome via [email or web address]. documented in this encounter Plan of Treatment Upcoming Encounters Date Type Department Care Team (Late st Contact Info) Description 12/29/2024 8:30 AM EDT Office Visit PAV CC Voice 800 [facility], 2nd [place] [address] Mariza Jenkins MS CCC-PERSONAL BANKING OFFICER 12/29/2024 9:30 AM EDT Office Visit Pav CC Head, Neck & Respiratory 800 [facility], 2nd [place] [address] Rambo Vargas MD [address] [facility] [address] [place] [address] 01/19/2025 2:00 PM EDT Clinical Support Pav CC Head, Neck & Respiratory 800 [facility], 2nd [place] [address] 01/19/2025 3:00 PM EDT Appointment PAV G Radiology [address] [place] [address] 01/22/2025 2:00 PM EDT Appointment PAV CC Radiation 800 [facility]. [id number] [place] [address] Vasu Scruggs MD 800 [facility] [address] [place] [address] 01/22/2025 3:50 PM EDT Office Visit Pav CC Head, Neck & Respiratory 800 [facility], 2nd [place] [address] Rosemarie Hidalgo MD 800 [facility] [address] [place] [address] 02/20/2025 11:30 AM EST Office Visit [facility] [address], 3rd [place] [address] Kaleigh Hutton MD [address] [facility] [address] [place] [address] 04/13/2025 3:00 PM EST Office Visit [facility] Medicine Specialties [address], 2nd [place] [address] Kye Trujillo MD [address] [facility] [address] [place] [address] documented as of this encounter Visit Diagnoses [...] documented as of this encounter Care Teams Child And Family Counselor Relationship Specialty Start Date End Date Delmi Robledo MD [address] [place] [address] PCP - General 02/09/23 Promise Lopez RN [facility] Nurse Navigator Hematology and Oncology 05/22/24 Vasu Scruggs MD [address] [address] Service Attending Radiation Oncology 05/22/24 documented as of this encounter
--- OUTSIDE RECORDS SUMMARY | 2024-12-16 21:45 | XMS_ITS | Encounter Summary ---
Author Organization Healthcare Address [address] [place] [address] Care Team Providers Care Line Up Machine Operator Name Role Phone Delmi Robledo MD Primary Care Provider [phone] Promise Lopez RN Unavailable Vasu Felipe MD Unavailable Encounter Details Date Type Department Care Team (Late st Contact Info) Description 12/05/2024 Telephone Pav CC Head, Neck & Respiratory 800 [facility], 2nd [place] [address] Ann Mcginnis Social History Tobacco Use Types [...] any time in the past 12 m [facility], were you homeless or living [...] first t mario alberto in the morning (EYE-BIOINFORMATICS SUPPORT SPECIALIST) to steady your nerves or to [...] EDT Office Visit PAV CC Voice 800 [facility], 2nd [place] [address] Mariza Jenkins, MS CCC-IBM MAINFRAME SYSTEMS PROGRAMMER 12/29/2024 9:30 AM EDT Office Visit Pav CC Head, Neck & Respiratory [address] , [address] [place] [address] Rambo Vargas MD [address] [facility] [address] [place] [address] 01/19/2025 2:00 PM EDT Clinical Support Pav CC Head, Neck & Respiratory 800 [facility], 2nd [place] [address] 01/19/2025 3:00 PM EDT Appointment PAV G Radiology [address] [place] [address] 01/22/2025 2:00 PM EDT Appointment PAV CC Radiation 800 [facility]. [id number] [place] [address] Vasu Scruggs MD 800 [facility] [address] [place] [address] 01/22/2025 3:50 PM EDT Office Visit Pav CC Head, Neck & Respiratory [address] , 2nd [place] [address] Rosemarie Hidalgo MD [address] [facility] [address] [place] [address] 02/20/2025 11:30 AM EST [facility] Visit [facility] [address], 3rd [place] [address] Kaleigh Hutton MD [address] [place] [address] 04/13/2025 3:00 PM EST Office Visit [facility] Medicine Specialties [address], [address]nd [place] [address] Kye Trujillo MD [address] [place] [address] documented as of this encounter [...] documented as of this encounter Care Teams Line Up Machine Operator Relationship Specialty Start Date End Date Delmi Robledo MD [address] [place] [address] PCP - General 02/09/23 Promise Lopez RN [facility] Nurse Navigator Hematology and Oncology 05/22/24 Vasu Scruggs MD [address] [place] [address] Service Attending Radiation Oncology 05/22/24 documented as of this encounter
--- OUTSIDE RECORDS SUMMARY | 2024-12-16 21:45 | XMS_ITS | Encounter Summary ---
Author Organization Healthcare Address [address] [id number] Care Team Providers Care Medical Clinic Manager Name Role Phone Delmi Robledo MD Primary Care Provider [phone] Promise Lopez RN Unavailable Vasu Felipe MD Unavailable Sintia Lester SUPERVISOR CELLARS Unavailable Unavailable Encounter Details Date Type Department Care Team (Late Contact Info) Description 10/20/2021 Orders Only External Location 800 [place] [address] Provider, External Social History Tobacco Use Types [...] Upcoming Encounters Date Type Department Care Team ([facility] Contact Info) Description 12/29/2024 8:30 AM EDT Office Visit PAV CC Voice 800 [facility] 2nd [place] [address] Mariza Jenkins MS CCC-SENIOR TECHNICAL WRITER 12/29/2024 9:30 AM EDT Office Visit Pav CC Head, Neck & Respiratory [address] [address] Rambo Vargas MD [address] [facility] [address] [place] [address] 01/19/2025 2:00 PM EDT Clinical Support Pav CC Head, Neck & Respiratory 800 [facility], 2nd [place] [address] 01/19/2025 3:00 PM EDT Appointment PAV G Radiology [address] [place] [address] 01/22/2025 2:00 PM EDT Appointment PAV CC Radiation 800 [facility]. [id number] [place] [address] Vasu Scruggs MD 800 [facility] [address] [place] [address] 01/22/2025 3:50 PM EDT Office Visit Pav CC Head, Neck & Respiratory 800 [facility], 2nd [place] [address] Rosemarie Hidalgo MD 800 [facility] [address] [place] [address] 02/20/2025 11:30 AM EST Office Visit [facility] Otolaryngology [address], 3rd [place] [address] Kaleigh Hutton MD [address] [facility] [address] [place] [address] 04/13/2025 3:00 PM EST Office Visit [facility] Medicine Specialties [address], [address]nd [place] [address] Kye Trujillo MD [address] [facility] [address] [place] [address] documented as of this encounter Procedures Procedure Name Priority Date/Time Associated Diagnosis Comments US OUTSIDE IMAGES 10/20/2021 4:28 PM EDT documented in this encounter Results * US OUTSIDE IMAGES (10/20/2021 4:28 PM EDT) Anatomical Region Laterality Modality Ultrasound 10/20/2021 4:28 PM EDT us External Provider IMG US PROCEDURES Final Result documented in this encounter Visit Diagnoses Not on filedocumented in this encounter Care Teams Medical Clinic Manager Relationship Specialty Start Date End Date Delmi Robledo MD [address] [place] [address] PCP - General 02/09/23 Promise Lopez, RN [facility] Nurse Navigator Hematology and Oncology 05/22/24 Vasu Scruggs MD [address] [place] [id number] [place] [address] Service Attending Radiation Oncology 05/22/24 Sintia Lester LPN VALUE-[place]ED [place] [address] [facility] Nurse 08/20/24 09/19/24 documented as of this encounter
--- OUTSIDE RECORDS SUMMARY | 2024-12-16 21:45 | XMS_ITS | Encounter Summary ---
Author Organization Healthcare Address [address] [id number] Care Team Providers Care Die Maker Stamping Name Role Phone Delmi Robledo MD Primary Care Provider [phone] Promise Lopez RN Unavailable Vasu Felipe MD Unavailable Sintia Lester EMR ANALYST Unavailable Unavailable Encounter Details Date Type Department Care Team (Late Contact Info) Description 10/29/2021 Orders Only External Location 800 [place] [address] Provider, External Social History Tobacco Use Types [...] Upcoming Encounters Date Type Department Care Team ([facility] Contact Info) Description 12/29/2024 8:30 AM EDT Office Visit PAV CC Voice 800 [facility] 2nd [place] [address] Mariza Jenkins MS CCC-STEM THRESHING MACHINE OPERATOR 12/29/2024 9:30 AM EDT Office Visit Pav CC Head, Neck & Respiratory [address] [address] Rambo Vargas MD [address] [facility] [address] [place] [address] 01/19/2025 2:00 PM EDT Clinical Support Pav CC Head, Neck & Respiratory [address] [facility], 2nd [place] [address] 01/19/2025 3:00 PM EDT Appointment PAV G Radiology [address] [place] [address] 01/22/2025 2:00 PM EDT Appointment PAV CC Radiation [address] [facility]. [address] [place] [address] Vasu Scruggs MD [address] [facility] [address] [place] [address] 01/22/2025 3:50 PM EDT Office Visit Pav CC Head, Neck & Respiratory [address] [facility], 2nd [place] [address] Rosemarie Hidalgo MD [address] [facility] [address] [place] [address] 02/20/2025 11:30 AM EST Office Visit [facility] Otolaryngology [address], 3rd [place] [address] Kaleigh Hutton MD [address] [facility] [address] [place] [address] 04/13/2025 3:00 PM EST Office Visit [facility] Medicine Specialties [address], [address]nd [place] [address] Kye Trujillo MD [address] [facility] [address] [place] [address] documented as of this encounter Procedures Procedure Name Priority Date/Time Associated Diagnosis Comments XR OUTSIDE IMAGES 10/29/2021 7:11 PM EDT documented in this encounter Results * XR OUTSIDE IMAGES (10/29/2021 7:11 PM EDT) Anatomical Region Laterality Modality Radiographic Reanna ging 10/29/2021 7:11 PM EDT us External Provider IMG XR PROCEDURES Final Result documented in this encounter Visit Diagnoses Not on filedocumented in this encounter Care Teams Die Maker Stamping Relationship Specialty Start Date End Date Delmi Robledo MD [address] [place] [address] PCP - General 02/09/23 Promise Lopez, RN [facility] Nurse Navigator Hematology and Oncology 05/22/24 Vasu Scruggs MD [address] [id number] [place] [address] Service Attending Radiation Oncology 05/22/24 Sintia Lester LPN VALUE-[place]ED [place] [address] TCM Nurse 08/20/24 09/19/24 documented as of this encounter
--- OUTSIDE RECORDS SUMMARY | 2024-12-16 21:45 | XMS_ITS | Encounter Summary ---
Author Organization Healthcare Address [address] [place] [place] [id number] Care Team Providers Care Supervisor Rides Name Role Phone Delmi Robledo MD Primary Care Provider [phone] Promise Lopez RN Unavailable Vasu Felipe MD Unavailable Sintia Lester CASKET INSPECTOR Unavailable Unavailable Encounter Details Date Type Department Care Team (Late Contact Info) Description 11/03/2019 Orders Only External Location 800 [place] [address] Provider, External Social History Tobacco [...] EDT Office Visit PAV CC Voice 800 [facility], 2nd [place] [address] Mariza Jenkins MS CCC-COLLEGE SPORTS ASSISTANT 12/29/2024 9:30 AM EDT Office Visit Pav CC Head, Neck & Respiratory [address] [address] Rambo Vargas MD [address] [facility] [address] [place] [address] 01/19/2025 2:00 PM EDT Clinical Support Pav CC Head, Neck & Respiratory [address] , [address]nd [place] [address] 01/19/2025 3:00 PM EDT Appointment PAV G Radiology [address] [place] [address] 01/22/2025 2:00 PM EDT Appointment PAV CC Radiation [address] [place] [address] Vasu Scruggs MD [address] [place] [address] 01/22/2025 3:50 PM EDT Office Visit Pav CC Head, Neck & Respiratory [address] , [address]nd [place] [address] Rosemarie Hidalgo MD [address] [place] [address] 02/20/2025 11:30 AM EST Office Visit [facility] [address], 3rd [place] [address] Kaleigh Hutton MD [address] [place] [address] 04/13/2025 3:00 PM EST Office Visit [facility] Medicine Specialties [address], [address]nd [place] [address] Kye Trujillo MD [address] [place] [address] documented as of this encounter Procedures Procedure Name Priority Date/Time Associated Diagnosis Comments CT MSK OUTSIDE IMAGES 11/03/2019 12:20 AM EDT documented in this encounter Results * CT MSK OUTSIDE IMAGES (11/03/2019 12:20 AM EDT) Anatomical Region Laterality Modality Computed Tomogra phy 11/03/2019 12:2 0 AM EDT us External Provider IMG CT PROCEDURES Final Result documented in this encounter Visit Diagnoses Not on filedocumented in this encounter Care Teams Supervisor Rides Relationship Specialty Start Date End Date Delmi Robledo MD [address] [place] [address] PCP - General 02/09/23 Promise Lopez RN [facility] Nurse Navigator Hematology and Oncology 05/22/24 Vasu Scruggs MD [address] [id number] [place] [address] Service Attending Radiation Oncology 05/22/24 Sintia Lester LPN VALUE-[place]ED [place] [address] TCM Nurse 08/20/24 09/19/24 documented as of this encounter
--- OUTSIDE RECORDS SUMMARY | 2024-12-16 21:45 | XMS_ITS | Encounter Summary ---
Author Organization Healthcare Address [address] [id number] Care Team Providers Care Family Consultant Name Role Phone Delmi Robledo MD Primary Care Provider [phone] Promise Lopez RN Unavailable Vasu Felipe MD Unavailable Sintia Lester SOFTBALL WINDER Unavailable Unavailable Encounter Details Date Type Department Care Team (Late Contact Info) Description 11/19/2019 Orders Only External Location 800 [place] [address] Provider, External Social History Tobacco Use Types [...] EDT Office Visit PAV CC Voice 800 [facility], [address]nd [place] [address] Mariza Jenkins MS CCC-VOICER 12/29/2024 9:30 AM EDT Office Visit Pav CC Head, Neck & Respiratory [address] [address] Rambo Vargas MD [address] [facility] [address] [place] [address] 01/19/2025 2:00 PM EDT Clinical Support Pav CC Head, Neck & Respiratory [address] , [address]nd [place] [address] 01/19/2025 3:00 PM EDT Appointment PAV G Radiology [address] [place] [address] 01/22/2025 2:00 PM EDT Appointment PAV CC Radiation [address] [place] [address] Vasu Scruggs MD [address] [place] [address] 01/22/2025 3:50 PM EDT Office Visit [facility] Head, Neck & Respiratory [address] , [address]nd [place] [address] Rosemarie Hidalgo MD [address] [place] [address] 02/20/2025 11:30 AM EST Office Visit [facility] Ot[facility]ology [address], 3rd [place] [address] Kaleigh Hutton MD [address] [place] [address] 04/13/2025 3:00 PM EST Office Visit [facility] Medicine Specialties [address], [address]nd [place] [address] Kye Trujillo MD [address] [place] [address] documented as of this encounter Procedures Procedure Name Priority Date/Time Associated Diagnosis Comments CT MSK OUTSIDE IMAGES 11/19/2019 11:39 PM EDT documented in this encounter Results * CT MSK OUTSIDE IMAGES (11/19/2019 11:39 PM EDT) Anatomical Region Laterality Modality Computed Tomogra phy 11/19/2019 11:3 9 PM EDT us External Provider IMG CT PROCEDURES Final Result documented in this encounter Visit Diagnoses Not on filedocumented in this encounter Care Teams Family Consultant Relationship Specialty Start Date End Date Delmi Robledo MD [address] [place] [address] PCP - General 02/09/23 Promise Lopez RN [facility] Nurse Navigator Hematology and Oncology 05/22/24 Vasu Scruggs MD [id number] [place] [address] Service Attending Radiation Oncology 05/22/24 Sintia Lester LPN VALUE-BASED [place] [address] TCM Nurse 08/20/24 09/19/24 documented as of this encounter
--- OUTSIDE RECORDS SUMMARY | 2024-12-16 21:45 | XMS_ITS | Encounter Summary ---
Author Organization Healthcare Address [address] [id number] Care Team Providers Care Marine Fire Fighter Name Role Phone Delmi Robledo MD Primary Care Provider [phone] Promise Lopez RN Unavailable Vasu Felipe MD Unavailable Sintia Lester COPYRIGHT EXPERT Unavailable Unavailable Encounter Details Date Type Department Care Team (Late Contact Info) Description 01/12/2023 Orders Only External Location 800 [place] [address] Provider, External Social History Tobacco Use Types [...] Office Visit PAV CC Voice 800 [facility] 2nd [place] [address] Mariza Jenkins MS CCC-IRB COMPLIANCE COORDINATOR 12/29/2024 9:30 AM EDT Office Visit [facility] Head, Neck & Respiratory [address] [address] Rambo Vargas MD [address] [facility] [address] [place] [address] 01/19/2025 2:00 PM EDT Clinical Support Pav CC Head, Neck & Respiratory 800 [facility], 2nd [place] [address] 01/19/2025 3:00 PM EDT Appointment PAV G Radiology [address] [place] [address] 01/22/2025 2:00 PM EDT Appointment PAV CC Radiation 800 [facility]. [address] [place] [address] Vasu Scruggs MD 800 [facility] [address] [place] [address] 01/22/2025 3:50 PM EDT Office Visit [facility] Head, Neck & Respiratory 800 [facility], 2nd [place] [address] Rosemarie Hidalgo MD 800 [facility] [address] [place] [address] 02/20/2025 11:30 AM EST Office Visit [facility] Otolaryngology [address], 3rd [place] [address] Kaleigh Hutton MD [address] [facility] [address] [place] [address] 04/13/2025 3:00 PM EST Office Visit [facility] Medicine Specialties [address], [address] [place] [address] Kye Trujillo MD [address] [facility] [address] [place] [address] documented as of this encounter Procedures Procedure Name Priority Date/Time Associated Diagnosis Comments XR OUTSIDE IMAGES 01/12/2023 11:33 AM EDT documented in this encounter Results * XR OUTSIDE IMAGES (01/12/2023 11:33 AM EDT) Anatomical Region Laterality Modality Radiographic Reanna ging 01/12/2023 11:3 3 AM EDT us External Provider IMG XR PROCEDURES Final Result documented in this encounter Visit Diagnoses Not on filedocumented in this encounter Care Teams Marine Fire Fighter Relationship Specialty Start Date End Date Delmi Robledo MD [address] [place] [address] PCP - General 02/09/23 Promise Lopez, RN [facility] Nurse Navigator Hematology and Oncology 05/22/24 Vasu Scruggs MD [id number] [place] [address] Service Attending Radiation Oncology 05/22/24 Sintia Lester LPN VALUE-BASED [place] [address] TCM Nurse 08/20/24 09/19/24 documented as of this encounter
--- OUTSIDE RECORDS SUMMARY | 2024-12-16 21:45 | XMS_ITS | Encounter Summary ---
Author Organization Healthcare Address [address] [id number] Care Team Providers Care Planning Feeder Name Role Phone Delmi Robledo MD Primary Care Provider [phone] Promise Lopez RN Unavailable Vasu Felipe MD Unavailable Sintia Lester SUEDE CLEANER Unavailable Unavailable Encounter Details Date Type Department Care Team (Late Contact Info) Description 10/19/2021 Orders Only External Location 800 [place] [address] Provider, External Social History Tobacco Use Types [...] Upcoming Encounters Date Type Department Care Team ([facility] Contact Info) Description 12/29/2024 8:30 AM EDT Office Visit [facility] Voice 800 [facility] 2nd [place] [address] Mariza Jenkins MS CCC-VENETIAN BLIND CLEANER AND REPAIRER 12/29/2024 9:30 AM EDT Office Visit [facility] Head[facility] Neck & Respiratory [address] [phone] Rambo Vargas MD [address] [facility] [address] [place] [address] 01/19/2025 2:00 PM EDT Clinical Support [facility] Head, Neck & Respiratory 800 [facility], 2nd [place] [address] 01/19/2025 3:00 PM EDT Appointment PAV G Radiology [address] [place] [address] 01/22/2025 2:00 PM EDT Appointment P[facility] CC Radiation 800 [facility]. [id number] [place] [address] Vasu Scruggs MD [address] [facility] [address] [place] [address] 01/22/2025 3:50 PM EDT Office Visit [facility] Neck [facility] Respiratory 800 [facility], 2nd [place] [address] Rosemarie Hidalgo MD [address] [facility] [address] [place] [address] 02/20/2025 11:30 AM EST Office Visit [facility] Otolaryngology [address], 3rd [place] [address] Kaleigh Hutton MD [address] [facility] [address] [place] [address] 04/13/2025 3:00 PM EST Office Visit [facility] Medicine Specialties [address], [address]nd [place] [address] Kye Trujillo MD [address] [facility] [address] [place] [address] documented as of this encounter Procedures Procedure Name Priority Date/Time Associated Diagnosis Comments XR OUTSIDE IMAGES 10/19/2021 11:57 AM EDT documented in this encounter Results * XR OUTSIDE IMAGES (10/19/2021 11:57 AM EDT) Anatomical Region Laterality Modality Radiographic Reanna ging 10/19/2021 11:5 7 AM EDT us External Provider IMG XR PROCEDURES Final Result documented in this encounter Visit Diagnoses Not on filedocumented in this encounter Care Teams Planning Feeder Relationship Specialty Start Date End Date Delmi Robledo MD [address] [place] [address] PCP - General 02/09/23 Promise Lopez RN [facility] Nurse Navigator Hematology and Oncology 05/22/24 Vasu Scruggs MD [id number] [place] [address] Service Attending Radiation Oncology 05/22/24 Sintia Lester LPN VALUE-BASED [place] [address] TCM Nurse 08/20/24 09/19/24 documented as of this encounter
--- OUTSIDE RECORDS SUMMARY | 2024-12-16 21:45 | XMS_ITS | Encounter Summary ---
Author Organization Healthcare Address [address] [id number] Care Team Providers Care Physiotherapy Assistant Name Role Phone Delmi Robledo MD Primary Care Provider [phone] Promise Lopez RN Unavailable Vasu Felipe MD Unavailable Encounter Details Date Type Department Care Team (Latest Contact Info) Description 12/08/2024 Travel Social History Tobacco Use Types Packs/Day [...] any time in the past 12 m [facility], were you homeless or living in a fpc (including now)? No 08/19/2024 CAGE ASSESSMENT Answer [...] first t mario alberto in the morning (EYE-TRAINING AND DEVELOPMENT COORDINATOR) to steady your nerves or to get [...] EDT Office Visit P[facility] CC Voice 800 [facility], 2nd [place] [address] Gregory Mariza Prashanth, MS CCC-MANAGEMENT AIDE 12/29/2024 9:30 AM EDT Office Visit [facility] Head[facility] Neck & Respiratory 800 [facility], 2nd [place] [address] Rambo Vargas MD [address] [facility] [address] [place] [address] 01/19/2025 2:00 PM EDT Clinical Support [facility] Head, Neck & Respiratory 800 [facility] 2nd [place] [address] 01/19/2025 3:00 PM EDT Appointment PAV G Radiology [address] [place] [address] 01/22/2025 2:00 PM EDT Appointment P[facility] CC Radiation 800 [facility]. [id number] [place] [address] Vasu Scruggs MD 800 [facility] [address] [place] [address] 01/22/2025 3:50 PM EDT Office Visit [facility] Head[facility] Neck & Respiratory 800 [facility], [address]nd [place] [address] Rosemarie Hidalgo MD 800 [facility] [address] [place] [address] 02/20/2025 11:30 AM EST [facility] [address], 3rd [place] [address] Kaleigh Hutton MD [address] [facility] [address] [place] [address] 04/13/2025 3:00 PM EST [facility] Medicine Specialties [address], 2nd [place] [address] Kye Trujillo MD [address] [place] [address] documented as of this encounter [...] documented as of this encounter Care Teams Physiotherapy Assistant Relationship Specialty Start Date End Date Delmi Robledo MD [address] [place] [address] [place] [address] PCP - General 02/09/23 Promise Lopez RN [facility] Nurse Navigator Hematology and Oncology 05/22/24 Vasu Scruggs MD [address] [place] [address] Service Attending Radiation Oncology 05/22/24 documented as of this encounter
--- OUTSIDE RECORDS SUMMARY | 2024-12-16 21:45 | XMS_ITS | Encounter Summary ---
Author Organization Healthcare Address [address] [id number] Care Team Providers Care Neighborhood Service Center Director Name Role Phone Delmi Robledo MD Primary Care Provider [phone] Promise Lopez RN Unavailable Vasu Felipe MD Unavailable Sintia Lester PEST CONTROL CHEMICAL TECHNICIAN Unavailable Unavailable Encounter Details Date Type Department Care Team (Late Contact Info) Description 08/09/2022 Orders Only External Location 800 [place] [address] Provider, External Social History Tobacco Use Types [...] Upcoming Encounters Date Type Department Care Team ([facility] Contact Info) Description 12/29/2024 8:30 AM EDT Office Visit P[facility] CC Voice 800 [facility] 2nd [place] [address] Mariza Jenkins MS CCC-TRUSS DRIVER HELPER 12/29/2024 9:30 AM EDT Office Visit [facility] Head[facility] Neck [facility] Respiratory [address] [phone] Rambo Vargas MD [address] [facility] [address] [place] [address] 01/19/2025 2:00 PM EDT Clinical Support Pav [facility] Head, Neck & Respiratory 800 [facility], 2nd [place] [address] 01/19/2025 3:00 PM EDT Appointment PAV G Radiology [address] [place] [address] 01/22/2025 2:00 PM EDT Appointment P[facility] CC Radiation 800 [facility]. HY[address] [place] [address] Vasu Scruggs MD 800 [facility] [address] [place] [address] 01/22/2025 3:50 PM EDT Office Visit [facility] Head[facility] Neck & Respiratory 800 [facility], 2nd [place] [address] Rosemarie Hidalgo MD 800 [facility] [address] [place] [address] 02/20/2025 11:30 AM EST Office Visit [facility] Ot[facility] [address], 3rd [place] [address] Kaleigh Hutton MD [address] [place] [address] 04/13/2025 3:00 PM EST Office Visit [facility] Medicine Specialties [address], 2nd [place] [address] Kye Trujillo MD [address] [facility] [address] [place] [address] documented as of this encounter Procedures Procedure Name Priority Date/Time Associated Diagnosis Comments NM OUTSIDE IMAGES 08/09/2022 10:37 AM EDT documented in this encounter Results * NM OUTSIDE IMAGES (08/09/2022 10:37 AM EDT) Anatomical Region Laterality Modality Nuclear Medicine 08/09/2022 10:3 7 AM EDT us External Provider IMG NM PROCEDURES Final Result documented in this encounter Visit Diagnoses Not on filedocumented in this encounter Care Teams Neighborhood Service Center Director Relationship Specialty Start Date End Date Delmi Robledo MD [address] [place] [address] PCP - General 02/09/23 Promise Lopez, RN [facility] Nurse Navigator Hematology and Oncology 05/22/24 Vasu Scruggs MD [address] [place] [address] Service Attending Radiation Oncology 05/22/24 Sintia Lester LPN VALUE-BASED [place] [address] TCM Nurse 08/20/24 09/19/24 documented as of this encounter
--- OUTSIDE RECORDS SUMMARY | 2024-12-16 21:45 | XMS_ITS | Patient Health Record ---
Author Organization Hernesto Arreola MD Address [address] [place] [address] Care Team Providers Care Field Support Engineer Name Role Phone Hernesto Arreola Primary Care Provider Elba ARIZMENDI, Hernesto Unavailable [phone] Reason For Referral No Information Plan Of Treatment No Information Insurance Providers Payer Name Payer Address Payer Phone Subscriber Number Group Number Insured Name Patient Relationship to Insured Coverage Start Date Coverage End Date Medicare J15 Part B Claim-CGS [address] [address] [place] [id number] Benigno Keita Self - patient is the insured [facility] [address] [place] [address] [id number] Benigno Keita Self - patient is the insured
--- OUTSIDE RECORDS SUMMARY | 2024-12-16 21:45 | XMS_ITS | Encounter Summary ---
Author Organization Healthcare Address [address] [id number] Care Team Providers Care Slab Tripper Name Role Phone Delmi Robledo MD Primary Care Provider [phone] Promise Lopez RN Unavailable Vasu Felipe MD Unavailable Sintia Lester MEDIA SERVICES DIRECTOR Unavailable Unavailable Encounter Details Date Type Department Care Team (Late Contact Info) Description 11/01/2021 Orders Only External Location 800 [place] [address] Provider, External Social History Tobacco Use Types [...] Upcoming Encounters Date Type Department Care Team ([facility] Contact Info) Description 12/29/2024 8:30 AM EDT Office Visit P[facility] CC Voice 800 [facility] 2nd [place] [address] Mariza Jenkins MS CCC-WINTER SPORTS MANAGER 12/29/2024 9:30 AM EDT Office Visit [facility] Head[facility] Neck & Respiratory [address] [phone] Rambo Vargas MD [address] [facility] [address] [place] [address] 01/19/2025 2:00 PM EDT Clinical Support Pav CC Head, Neck & Respiratory 800 [facility], 2nd [place] [address] 01/19/2025 3:00 PM EDT Appointment PAV G Radiology [address] [place] [address] 01/22/2025 2:00 PM EDT Appointment PAV CC Radiation 800 [facility]. [address] [place] [address] Vasu Scruggs MD [address] [facility] [address] [place] [address] 01/22/2025 3:50 PM EDT Office Visit [facility] Head[facility] Neck & Respiratory [address] [facility], 2nd [place] [address] Rosemarie Hidalgo MD [address] [facility] [address] [place] [address] 02/20/2025 11:30 AM EST Office Visit [facility] Otolaryngology [address], 3rd [place] [address] Kaleigh Hutton MD [address] [place] [address] 04/13/2025 3:00 PM EST [facility] Medicine [facility] [address], 2nd [place] [address] Kye Trujillo MD [address] [place] [address] documented as of this encounter Procedures Procedure Name Priority Date/Time Associated Diagnosis Comments CT MSK OUTSIDE IMAGES 11/01/2021 1:37 PM EDT documented in this encounter Results * CT MSK OUTSIDE IMAGES (11/01/2021 1:37 PM EDT) Anatomical Region Laterality Modality Computed Tomogra phy 11/01/2021 1:37 PM EDT us External Provider IMG CT PROCEDURES Final Result documented in this encounter Visit Diagnoses Not on filedocumented in this encounter Care Teams Slab Tripper Relationship Specialty Start Date End Date Delmi Robledo MD [address] [place] [address] PCP - General 02/09/23 Promise Lopez RN [facility] Nurse Navigator Hematology and Oncology 05/22/24 Vasu Scruggs MD [address] [place] [address] Service Attending Radiation Oncology 05/22/24 Sintia Lester LPN VALUE-[place] [address] [facility] Nurse 08/20/24 09/19/24 documented as of this encounter
--- OUTSIDE RECORDS SUMMARY | 2024-12-16 21:45 | XMS_ITS | Encounter Summary ---
Author Organization Healthcare Address [address] [id number] Care Team Providers Care Special Effects Person Name Role Phone Delmi Robledo MD Primary Care Provider [phone] Promise Lopez RN Unavailable Vasu Felipe MD Unavailable Sintia Lester CAREGIVER SERVICES HOME Unavailable Unavailable Encounter Details Date Type Department Care Team (Late Contact Info) Description 01/04/2023 Orders Only External Location 800 [place] [address] Provider, External Social History Tobacco Use Types [...] EDT Office Visit P[facility] CC Voice 800 [facility] 2nd [place] [address] Mariza Jenkins MS CCC-ACCOUNT RESOLUTION SPECIALIST 12/29/2024 9:30 AM EDT Office Visit [facility] Head[facility] Neck & Respiratory [address] [phone] Rambo Vargas MD [address] [facility] [address] [place] [address] 01/19/2025 2:00 PM EDT Clinical Support Pav CC Head, Neck & Respiratory 800 [facility], 2nd [place] [address] 01/19/2025 3:00 PM EDT Appointment PAV G Radiology [address] [place] [address] 01/22/2025 2:00 PM EDT Appointment PAV CC Radiation 800 [facility]. [id number] [place] [address] Vasu Scruggs MD 800 [facility] [address] [place] [address] 01/22/2025 3:50 PM EDT Office Visit [facility] Head[facility] Neck & Respiratory 800 [facility], 2nd [place] [address] Rosemarie Hidalgo MD 800 [facility] [address] [place] [address] 02/20/2025 11:30 AM EST Office Visit [facility] Otolaryngology [address], 3rd [place] [address] Kaleigh Hutton MD [address] [facility] [address] [place] [address] 04/13/2025 3:00 PM EST Office Visit [facility] Medicine Specialties [address], [address]nd [place] [address] Kye Trujillo MD [address] [facility] [address] [place] [address] documented as of this encounter Procedures Procedure Name Priority Date/Time Associated Diagnosis Comments XR OUTSIDE IMAGES 01/04/2023 12:16 AM EDT documented in this encounter Results * XR OUTSIDE IMAGES (01/04/2023 12:16 AM EDT) Anatomical Region Laterality Modality Radiographic Reanna ging 01/04/2023 12:1 6 AM EDT us External Provider IMG XR PROCEDURES Final Result documented in this encounter Visit Diagnoses Not on filedocumented in this encounter Care Teams Special Effects Person Relationship Specialty Start Date End Date Delmi Robledo MD [address] [place] [address] PCP - General 02/09/23 Promise Lopez RN [facility] Nurse Navigator Hematology and Oncology 05/22/24 Vasu Scruggs MD [address] [place] [address] Service Attending Radiation Oncology 05/22/24 Sintia Lester LPN VALUE-BASED [place] [address] TCM Nurse 08/20/24 09/19/24 documented as of this encounter
--- OUTSIDE RECORDS SUMMARY | 2024-12-16 21:45 | XMS_ITS | Encounter Summary ---
Author Organization Healthcare Address [address] [id number] Care Team Providers Care Formstone Fitter Name Role Phone Delmi Robledo MD Primary Care Provider [phone] Promise Lopez RN Unavailable Vasu Felipe MD Unavailable Sintia Lester MAINTENANCE MECHANIC MILLWRIGHT Unavailable Unavailable Encounter Details Date Type Department Care Team (Late Contact Info) Description 10/07/2019 Orders Only External Location 800 [place] [address] Provider, External Social History Tobacco [...] Office Visit P[facility] CC Voice 800 [facility], [address]nd [place] [address] Mariza Jenkins MS CCC-PEDIATRIC NEPHROLOGIST 12/29/2024 9:30 AM EDT Office Visit [facility] Head[facility] Neck [facility] Respiratory [address] [address] Rambo Vargas MD [address] [facility] [address] [place] [address] 01/19/2025 2:00 PM EDT Clinical Support [facility] CC Head, Neck & Respiratory 800 [facility], 2nd [place] [address] 01/19/2025 3:00 PM EDT Appointment PAV G Radiology [address] [place] [address] 01/22/2025 2:00 PM EDT Appointment PAV CC Radiation 800 [facility]. [id number] [place] [address] Vasu Scruggs MD 800 [facility] [address] [place] [address] 01/22/2025 3:50 PM EDT Office Visit [facility] Head[facility] Neck & Respiratory 800 [facility], 2nd [place] [address] Rosemarie Hidalgo MD 800 [facility] [address] [place] [address] 02/20/2025 11:30 AM EST [facility] Visit [facility] [address], 3rd [place] [address] Kaleigh Hutton MD [address] [place] [address] 04/13/2025 3:00 PM EST [facility] Visit [facility] [address], [address]nd [place] [address] Kye Trujillo MD [address] [facility] [address] [place] [address] documented as of this encounter Procedures Procedure Name Priority Date/Time Associated Diagnosis Comments CT ABDOMEN OUTSIDE IMAGES 10/07/2019 11:27 AM EDT documented in this encounter Results * CT ABDOMEN OUTSIDE IMAGES (10/07/2019 11:27 AM EDT) Anatomical Region Laterality Modality Computed Tomogra phy 10/07/2019 11:2 7 AM EDT us External Provider IMG CT PROCEDURES Final Result documented in this encounter Visit Diagnoses Not on filedocumented in this encounter Care Teams Formstone Fitter Relationship Specialty Start Date End Date Delmi Robledo MD [address] [place] [address] PCP - General 02/09/23 Promise Lopez RN [facility] Nurse Navigator Hematology and Oncology 05/22/24 Vasu Scruggs MD [id number] [place] [address] Service Attending Radiation Oncology 05/22/24 Sintia Lester LPN VALUE-BASED [place] [address] TCM Nurse 08/20/24 09/19/24 documented as of this encounter
--- OUTSIDE RECORDS SUMMARY | 2024-12-16 21:45 | XMS_ITS | Clinical Summary ---
Author Organization [facility] Address [address] [place] [address] Care Team Providers Care Weld Technician Name Role Phone Provider, No Known Primary Care Provider Unavail able Allergies Active Allergy Reactions Criticality Noted Date Comments Cyclobenzaprine 01/09/2016 Other 01/17/2016 DARVOCET Medications HYDROcodone-acetam inophen (NORCO) 7.5-325 MG per tablet Take 1 tablet by mouth Every 6 (Six) Hours As Needed for moderate pain (4-6). Active gabapentin (NEURONTIN) 400 MG capsule Take 1 capsule by mouth 3 (Three) Times a Day. Active calcium citrate-vitamin d (CITRACAL) 200-250 MG-UNIT tablet tablet Take by mouth Daily. Active tiZANidine (ZANAFLEX) 4 MG tablet Take 1 tablet by mouth At Night As Needed for Muscle Spasms. Active traZODone (DESYREL) 50 MG tablet Take 50 mg by mouth Every Night. Active aspirin 81 MG EC tablet Take 1 tablet by mouth Daily. 30 tablet 08/23/2016 2:23 PM EDT 08/24/19 17 Active pravastatin (PRAVACHOL) 40 MG tablet Take 1 tablet by mouth Daily. 30 tablet 08/23/2016 2:23 PM EDT 08/24/19 17 Active nicotine (NICODERM CQ) 21 MG/24HR patch Place 1 patch on the skin Daily. 28 patch 08/23/2016 2:23 PM EDT 08/24/19 17 Active Additional Information Patient taking differently:1 patch Transdermal Every 24 Hours,States he has not started these yet, Reported on 11/18/2016 FENOFIBRATE PO Take by mouth. Active Divalproex Sodium (DEPAKOTE PO) Take by mouth. A ctive carvedilol (COREG) 3.125 MG tablet Take 1 tablet by mouth 2 (Two) Times a Day. 60 tablet 10/09/19 17 Active Additional Information Patient taking differently:3.125 mg Oral 2 Times Daily,Pt states he has run out and needs a new Rx, Reported on 11/18/2016 dextromethorphan-q uinidine (NUEDEXTA) 20-10 MG capsule capsule Take by mouth Every 12 (Twelve) Hours. Active cephalexin (KEFLEX) 500 MG capsule Take 1 capsule by mouth 3 (Three) Times a Day. 30 capsule 11/19/19 17 Active oseltamivir (TAMIFLU) 75 MG capsule Take 1 capsule by mouth 2 (Two) Times a Day. 10 capsule 06/20/19 19 Active ondansetron ODT (ZOFRAN-ODT) 4 MG disintegrating tablet Take 1 tablet by mouth Every 4 (Four) Hours. 15 tablet 06/20/19 19 Active benzonatate (TESSALON) 200 MG capsuleIndications :Suspected COVID-19 virus infection Take 1 capsule by mouth 3 (Three) Times a Day As Needed for Cough. 24 capsule 10/14/19 20 Active ondansetron ODT (ZOFRAN-ODT) 8 MG disintegrating tabletIndications: Suspected COVID-[address] 1 tablet on the tongue Every 8 (Eight) Hours As Needed for Nausea or Vomiting. 12 tablet 10/14/19 20 Active Active Problems Problem Noted Date Diagnosed Date Angina at rest 08/22/2016 Left upper arm injury 2016 Opiate use 2016 Tobacco abuse 2016 Bipolar disorder 2016 Hyperlipidemia 2016 Resolved Problems Problem Noted Date Diagnosed Date Resolved Date Chest pain 2016 08/23/2016 Syncope 2016 08/23/2016 Leukocytosis 2016 08/23/2016 Immunizations Immunization Administration Dates Next Due Tdap 01/09/2016 Social History Tobacco Use Types Packs/Day Years Used Date Smoking Tobacco: Every Day Cigarettes Smokeless Tobacco: Never Alcohol Use Standard Drinks/Week Comments No 0 (1 standard drink = 0.6 oz pur e alcohol) Abuse Screen Answer Date Recorded Unsafe at Home or Work/School Not on file Feels Threatened by Someone? Not on file 01/2024 Does Anyone Keep You from Co ntacting Others or Doint Things Outside the Home? Not on file 01/10/2024 Physical Sign of Abuse Present Not on file 1 Housing Stability Answer Date Recorded Current Living Arrangements Not on file 09/2022 Potentially Unsafe Housing Conditions Not on lisa e 01/06/2023 Family and Community Support Answer Mario e Recorded Help with Day-to-Day Activities Not on file 01/06/2023 Lonely or Isolated Not on file 01/06/2023 Employment Answer Date Recorded Do you want help finding or keeping work or a darleen b? Not on file 01/06/2023 Disabilities Answer Date Recorded Concentrating, Remembering, or Making Decisions Difficulty Not on file 01/06/2023 Doing Errands Independently Difficulty Not on fi le 01/06/2023 Education Answer Date Recorded Help with school or training? Not on file Preferred Language Not on file 01/06/2023 Sex and Gender Information Value Date Recorded Sex Assigned at Not on file Legal Sex Male 10:31 AM EDT Gender Identity Not on file Sexual Orientation Not on file Last Filed Vital Signs Vital Sign Reading Time Taken Comments Blood Pressure 112/71 01/04/2023 5:30 PM EDT Pulse 77 01/04/2023 5:30 PM EDT Temperature 36.8 C (98.2 F) 01/04/2023 4:22 PM EDT Respiratory Rate 16 01/04/2023 4:22 PM EDT Oxygen Saturation 96% 01/04/2023 5:30 PM EDT Inhaled Oxygen Concentration - - Weight 143 kg (315 lb) 01/04/2023 4:22 PM EDT Height 180.3 cm (5' 11 ) 01/04/2023 4:22 PM EDT Body Mass Index 43.93 01/04/2023 4:22 PM EDT Plan of Treatment Health Maintenance Due Date Last Done Comments Pneumococcal Vaccine 0-49 (1 of 2 - PCV) 08/20/2002 ANNUAL PHYSICAL 2016 HEPATITIS C SCREENING 2016 LIPID PANEL 08/23/2017 08/23/2016 COVID-19 Vaccine (3 - 2024-2 6 season) 2024 09/10/2020, 08/10/2020 INFLUENZA VACCINE 12/31/2024 01/03/2022, , 01/25/2011, Additional history exists TDAP/TD VACCINES (3 - Td or Tdap) 01/08/2026 016, 07/24/2011 Procedures Procedure Name Priority Date/Time Associated Diagnosis Comments LIPID PANEL Routine 08/23/2016 5:26 AM EDT from Last 3 Months or Most Recently Relevant to Health Maintenance Results * (ABNORMAL) Lipid Panel (08/23/2016 5:26 AM EDT) Total Cholesterol 144 0 - 200 mg/dL 08/23/2016 6:22 AM EDT [facility] Triglycerides 417(H) 0 - 150 mg/dL 08/23/2016 6:22 AM EDT [facility] HDL Cholesterol 26(L) 40 - 60 mg/dL 08/23/2016 6:22 AM EDT [facility] LDL Cholesterol 88 0 - 130 mg/dL 08/23/2016 6:22 AM EDT [facility] Blood 08/23/2016 5:26 AM EDT 08/23/2016 5:57 AM EDT Narrative [facility] - 08/23/2016 6:22 AM EDT Cholesterol Reference Ranges: Desirable < 200 mg/dL Borderline 200-239 mg/dL High Risk > 239 mg/dL Triglyceride Reference Ranges: Normal < 150 mg/dL Borderline 150-199 mg/dL High 200-499 mg/dL Very High > 499 mg/dL HDL Reference Ranges: Low < 40 mg/dL High > 59 mg/dL LDL Reference Ranges: Optimal < 100 mg/dL Near Optimal 100-129 mg/dL Borderline 130-159 mg/dL High 160-189 mg/dL Very High > 189 mg/dL Escobar Blackwell MD LAB BLOOD ORDERABLES Final Result [facility]
[address] [place] [address], from Last 3 Months or Most Recently Relevant to Health Maintenance [facility] Advance Directives * Full Code (Latest Code Status on File) Date Activated Date Inactivated Comments 08/22/2016 12:26 AM 08/23/2016 5:05 PM Care Teams Weld Technician Relationship Specialty Start Date End Date Provider, No Known [facility] [place] [address] PCP - General 04/10/15
--- OUTSIDE RECORDS SUMMARY | 2024-12-16 21:46 | XMS_ITS | Encounter Summary ---
Author Organization Healthcare Address [address] [id number] Care Team Providers Care Information Technology Analyst Name Role Phone Delmi Robledo MD Primary Care Provider [phone] Promise Lopez RN Unavailable Vasu Felipe MD Unavailable Sintia Lester CARE ATTENDANT Unavailable Unavailable Encounter Details Date Type Department Care Team (Late Contact Info) Description 12/03/2018 Orders Only External Location [address] [place] [phone] Provider, External Social History Tobacco Use Types [...] [facility], [address] [place] [phone] Mariza Jenkins MS CCC-SCREEN PRINT OPERATOR 12/29/2024 9:30 AM EDT Office Visit [facility] [address] [facility], [address] [place] [phone] Rambo Vargas MD [address] [facility] [address] [place] [phone] 01/19/2025 2:00 PM EDT Clinical Support [facility] [address] [facility], [address]nd [place] [phone] 01/19/2025 3:00 PM EDT Appointment [facility] Radiology [address] [place] [phone] 01/22/2025 2:00 PM EDT Appointment [facility] Radiation [address] [facility]. [id number] [place] [phone] Vasu Scruggs MD [address] [facility] [id number] [place] [phone] 01/22/2025 3:50 PM EDT Office Visit [facility] [address] [facility], [address]nd [place] [phone] Rosemarie Hidalgo MD [address] [facility] [address] [place] [address] 02/20/2025 11:30 AM EST Office Visit [facility] Otolaryngology [address], [address] [place] [address] Kaleigh Hutton MD [address] [facility] [address] [place] [address] 04/13/2025 3:00 PM EST Office Visit [facility] Medicine Specialties [address], [address] [place] [address] Kye Trujillo MD [address] [facility] [address] [place] [address] documented as of this encounter Procedures Procedure Name Priority Date/Time Associated Diagnosis Comments XR OUTSIDE IMAGES 12/03/2018 11:39 PM EDT documented in this encounter Results * XR OUTSIDE IMAGES (12/03/2018 11:39 PM EDT) Anatomical Region Laterality Modality Radiographic Reanna ging 12/03/2018 11:3 9 PM EDT us External Provider IMG XR PROCEDURES Final Result documented in this encounter Visit Diagnoses Not on filedocumented in this encounter Care Teams Information Technology Analyst Relationship Specialty Start Date End Date Delmi Robledo MD [address] [place] [address] PCP - General 02/09/23 Promise Lopez, RN [facility] Nurse Navigator Hematology and Oncology 05/22/24 Vasu Scruggs MD [id number] [place] [address] Service Attending Radiation Oncology 05/22/24 Sintia Lester LPN VALUE-[employer]ED [place] [address] [facility] Nurse 08/20/24 09/19/24 documented as of this encounter
--- OUTSIDE RECORDS SUMMARY | 2024-12-16 21:46 | XMS_ITS | Encounter Summary ---
Author Organization Healthcare Address [address] [id number] Care Team Providers Care Policy Writer Sales Name Role Phone Delmi Robledo MD Primary Care Provider [phone] Promise Lopez RN Unavailable Vasu Felipe MD Unavailable Sintia Lester PATTERN KEEPER Unavailable Unavailable Encounter Details Date Type Department Care Team (Late Contact Info) Description 02/29/2012 Orders Only External Location [address] [place] [phone] Provider, External Social History Tobacco Use Types [...] Upcoming Encounters Date Type Department Care Team ([facility] Contact Info) Description 12/29/2024 8:30 AM EDT Office Visit [facility] Voice [address] [facility] [address] [place] [phone] Mariza Jenkins MS CCC-WAREHOUSE DIRECTOR 12/29/2024 9:30 AM EDT Office Visit [facility] [address] [phone] Rambo Vargas MD [address] [facility] [address] [place] [address] 01/19/2025 2:00 PM EDT Clinical Support [facility] Res[facility] [address] [place] [facility], [address]nd [place] [phone] 01/19/2025 3:00 PM EDT Appointment [facility] G Radiology [address] [place] [phone] 01/22/2025 2:00 PM EDT Appointment [facility] CC Radiation [address] [place] [facility]. [id number] [place] [phone] Vasu Scruggs MD [address] [place] [phone] 01/22/2025 3:50 PM EDT Office Visit [facility] [address] [place] [facility], [address]nd [place] [phone] Rosemarie Hidalgo MD [address] [place] [facility] [address] [place] [address] 02/20/2025 11:30 AM EST Office Visit [facility] Otolaryngology [address], [address]rd [place] [address] Kaleigh Hutton MD [address] [place] [address] 04/13/2025 3:00 PM EST Office Visit [facility] Medicine Specialties [address], [address] [place] [address] Kye Trujillo MD [address] [facility] [address] [place] [address] documented as of this encounter Procedures Procedure Name Priority Date/Time Associated Diagnosis Comments CT ABDOMEN OUTSIDE IMAGES 02/29/2012 10:43 PM EST documented in this encounter Results * CT ABDOMEN OUTSIDE IMAGES (02/29/2012 10:43 PM EST) Anatomical Region Laterality Modality Computed Tomogra phy 02/29/2012 10:4 3 PM EST us External Provider IMG CT PROCEDURES Final Result documented in this encounter Visit Diagnoses Not on filedocumented in this encounter Care Teams Policy Writer Sales Relationship Specialty Start Date End Date Delmi Robledo MD [address] [place] [address] PCP - General 02/09/23 Promise Lopez, RN [facility] Nurse Navigator Hematology and Oncology 05/22/24 Vasu Scruggs MD [id number] [place] [address] Service Attending Radiation Oncology 05/22/24 Sintia Lester LPN VALUE-[employer] [place] [address] [facility] Nurse 08/20/24 09/19/24 documented as of this encounter
[2024-12-16 22:51] VITALS: BP 105/64; PULSE 68; RESP 18; TEMP 37.1; O2SAT 95
== END 2024-12-16 22:52 | disposition home or self-care (01) ==
PROVIDERS: Physician Assistant; Emergency Provider Student in an Organized Health Care Education/Training Program
DX: R07.89 Other chest pain (principal); E87.6 Hypokalemia; E87.1 Hypo-osmolality and hyponatremia; E83.42 Hypomagnesemia; D69.6 Thrombocytopenia, unspecified; R11.2 Nausea with vomiting, unspecified; F17.210 Nicotine dependence, cigarettes, uncomplicated; I48.0 Paroxysmal atrial fibrillation; Z79.01 Long term (current) use of anticoagulants; E78.5 Hyperlipidemia, unspecified; Z86.79 Personal history of other diseases of the circulatory system; Z95.5 Presence of coronary angioplasty implant and graft
CPT/HCPCS: 71045; 80053; 83690; 83735; 83880; 84484; 85025; 85610; 93005; 96374; 96375; 99285; J2270; J2405